=== PATIENT | male | born 1950 | race Caucasian/White ===

== ENCOUNTER 2021-08-08 16:25 | Inpatient (IN) | payer MEDICARE, BC ==
[2021-08-08] MEDS ORDERED: Sodium Chloride 0.9% 1,000 ML IV ONE ×2 (17:00→18:07)
[2021-08-08 17:44] LABS: ANION GAP 12.8 mmol/L (5-15)
--- NOTE | 2021-08-08 17:44 | CR ---
[id number] RAD/RAD Chest PA or AP 1V EXAM: RAD Chest PA or AP 1V INDICATION: SHORT OF BREATH. COMPARISON: None. DISCUSSION/IMPRESSION: Cardiomediastinal silhouette is normal in size and contour. Subtle patchy areas of linear opacification in both lung bases right greater than left. Findings are nonspecific and possibly dependent atelectasis versus summation artifact from overlapping structures of the bronchovascular bundles and chest wall. No pleural effusion or pneumothorax. Correlate for signs of infection to exclude developing pneumonia. Erick Medrano MD 08/08/21 3327 Thank you for allowing us to participate in the care of your patient.
[2021-08-08] MEDS ORDERED: Sodium Chloride 0.9% 1,000 ML IV SCH (18:07)
[2021-08-08] MEDS: Sodium Chloride 0.9% 1,000 ML IV SCH (18:07)
[2021-08-08] MEDS ORDERED: Levofloxacin/Dextrose 5%-Water 250 MG in Premix Bag 1 BAG IV SCH (21:00)
[2021-08-08 21:06] LABS: PTT,PARTIAL THROMBOPLSTIN TIME 39.7 SEC (22.8-31.4)
--- NOTE | 2021-08-08 21:07 | PCM.HP.2 ---
H&P History of Present Illness - General Date of Service: 08/08/21 Admit Problem/Dx: Admission Diagnosis/Problem Admission Diagnosis/Problem Sepsis - Related Data Allergies/Adverse Reactions: Allergies Allergy/AdvReac Type Severity Reaction Status Date / Time No Known Allergies Allergy Verified 03/16/15 15:41 Home Medications: Home Meds Aspirin [Children's Aspirin] 81 mg PO DAILY 03/16/15 [History] Levothyroxine Sodium [Synthroid] 137 mcg PO DAILY 03/16/15 [History] Lisinopril 20 mg PO DAILY 03/16/15 [History] Multivitamin [Multivitamins] 1 cap PO DAILY 03/16/15 [History] atorvaSTATin [Lipitor] 20 mg PO DAILY 03/16/15 [History] Metoprolol Succinate [Toprol XL 50mg] 50 mg PO DAILY #30 tab.er 03/17/15 [Rx] Omeprazole [Prilosec] 20 mg PO DAILY #30 capsule.dr 03/17/15 [Rx] Allopurinol [Zyloprim] 300 mg PO DAILY 08/08/21 [History] hydroCHLOROthiazide [Hydrochlorothiazide] 25 mg PO DAILY 08/08/21 [History] Past Medical History HEENT History: Reports: Cataract, Impaired Vision Cardiovascular History: Reports: High Cholesterol, Hypertension Gastrointestinal History: Reports: GERD Musculoskeletal History: Reports: Arthritis, Gout Endocrine/Metabolic History: Reports: Obesity/BMI 30+ - Infectious Disease History Infectious Disease History: Reports: Chicken Pox, Measles, Mumps - Past Surgical History HEENT Surgical History: Reports: Cataract Surgery Cardiovascular Surgical History: Reports: None GI Surgical History: Reports: None Musculoskeletal Surgical History: Reports: Arthroscopic Knee, Shoulder Surgery Other Musculoskeletal Surgeries/Procedures:: right knee ACL repair. bilateral shoulder surgery Social & Family History - Tobacco Use Tobacco Use Status *Q: Former Tobacco User Years of Tobacco use: 30 Packs/Tins Daily: 2 Used Tobacco, but Quit: Yes Month/Year Tobacco Last Used: 10 - Caffeine Use Caffeine Use: Reports: Coffee, Soda, Tea - Recreational Drug Use Recreational Drug Use: No H&P Review of Systems - Review of Systems: Review Of Systems: See Below General: Reports: Fever, Chills, Weakness, Fatigue, Decreased Appetite. Denies: Diaphoresis HEENT: Reports: Sinus Congestion. Denies: Sore Throat Pulmonary: Reports: Shortness of Breath, Cough. Denies: Wheezing, Sputum Cardiovascular: Reports: Lightheadedness. Denies: Chest Pain, Palpitations, Edema Gastrointestinal: Reports: Decreased Appetite. Denies: Abdominal Pain, Diarrhea, Nausea Genitourinary: Reports: No Symptoms Musculoskeletal: Reports: No Symptoms Skin: Reports: No Symptoms Psychiatric: Reports: No Symptoms Neurological: Reports: No Symptoms Hematologic/Lymphatic: Reports: No Symptoms Immunologic: Reports: No Symptoms Exam - Exam Exam: See Below - Vital Signs Vital Signs: Last Vital Signs Temp 99.0 F 08/08/21 19:41 Pulse 99 08/08/21 19:41 Resp 24 H 08/08/21 19:41 BP 113/63 08/08/21 19:41 Pulse Ox 97 08/08/21 19:41 Weight: 250 lb - Exam Quality Assessment: Supplemental Oxygen, DVT Prophylaxis. No: Urinary Catheter General: Alert, Oriented, Cooperative. No: Mild Distress HEENT: Conjunctiva Clear, Mucosa Moist & [place] Neck: Supple, Trachea Midline Lungs: Decreased Breath Sounds, Crackles, Rhonchi Cardiovascular: Regular Rhythm, Tachycardia. No: Systolic Murmur GI/Abdominal Exam: Normal Bowel Sounds, Soft, Non-Tender, No Distention (Male) Exam: Deferred Rectal (Males) Exam: Deferred Back Exam: Normal Inspection, Full Range of Motion Extremities: Normal Inspection, Normal Range of Motion, Non-Tender, No Pedal Edema, Normal Capillary Refill Peripheral Pulses: 2+: Dorsalis Pedis (L), Dorsalis Pedis (R) Skin: Warm, Dry, Intact Neuro Extensive - Mental Status: Alert, Oriented x3, Normal Mood/Affect Psychiatric: Alert, Normal Affect, Normal Mood - Patient Data Lab Results Last 24 hrs: Laboratory Results - last 24 hr 08/08/21 08/08/21 08/08/21 Range/Units 16:38 16:38 16:38 WBC 17.59 H (5.00-10.00) 10^3/uL RBC 4.14 L (4.50-6.00) 10^6/uL Hgb 12.7 L (13.0-17.0) g/dL Hct 38.1 L (40.0-52.0) % MCV 92.0 (82.0-92.0) fL MCH 30.7 (27.0-31.0) pg MCHC 33.3 (32.0-36.0) g/dL RDW 16.1 H (11.5-14.5) % Plt Count 243 (150-400) 10^3/uL MPV 10.7 H (7.4-10.4) fL Add Manual Diff Yes Neutrophils % (Manual) 91 H (50-70) % Band Neutrophils % 3 L (4-12) % Lymphocytes % (Manual) 5 L (20-40) % Atypical Lymphs % 0 Monocytes % (Manual) 1 L (2-8) % Eosinophils % (Manual) 0 L (1-3) % Basophils % (Manual) 0 (0-1) % Anisocytosis Few Ovalocytes Few D-Dimer, Quantitative 3220 H (<400) ng/mL Sodium 129 L (136-145) mmol/L Potassium 3.3 L (3.5-5.1) mmol/L Chloride 103 (98-107) mmol/L Carbon Dioxide 16.5 L (21.0-32.0) mmol/L Anion Gap 12.8 (5-15) mmol/L BUN 69 H* (7-18) mg/dL Creatinine 2.25 H (0.51-1.17) mg/dL Est Cr Clr Drug Dosing 31.54 mL/min Estimated GFR (MDRD) 29 mL/min Glucose 238 H (70-140) mg/dL Lactic Acid (0.4-2.0) mmol/L Calcium 8.6 L (8.7-10.3) mg/dL Total Bilirubin 0.8 (0.2-1.0) mg/dL AST 60 H (15-37) U/L ALT 52 (14-63) U/L Alkaline Phosphatase 99 (46-116) U/L Total Protein 7.9 (6.4-8.2) g/dL Albumin 2.52 L (3.40-5.00) g/dL 08/08/21 Range/Units 16:38 WBC (5.00-10.00) 10^3/uL RBC (4.50-6.00) 10^6/uL Hgb (13.0-17.0) g/dL Hct (40.0-52.0) % MCV (82.0-92.0) fL MCH (27.0-31.0) pg MCHC (32.0-36.0) g/dL RDW (11.5-14.5) % Plt Count (150-400) 10^3/uL MPV (7.4-10.4) fL Add Manual Diff Neutrophils % (Manual) (50-70) % Band Neutrophils % (4-12) % Lymphocytes % (Manual) (20-40) % Atypical Lymphs % Monocytes % (Manual) (2-8) % Eosinophils % (Manual) (1-3) % Basophils % (Manual) (0-1) % Anisocytosis Ovalocytes D-Dimer, Quantitative (<400) ng/mL Sodium (136-145) mmol/L Potassium (3.5-5.1) mmol/L Chloride (98-107) mmol/L Carbon Dioxide (21.0-32.0) mmol/L Anion Gap (5-15) mmol/L BUN (7-18) mg/dL Creatinine (0.51-1.17) mg/dL Est Cr Clr Drug Dosing mL/min Estimated GFR (MDRD) mL/min Glucose (70-140) mg/dL Lactic Acid 2.6 H (0.4-2.0) mmol/L Calcium (8.7-10.3) mg/dL Total Bilirubin (0.2-1.0) mg/dL AST (15-37) U/L ALT (14-63) U/L Alkaline Phosphatase (46-116) U/L Total Protein (6.4-8.2) g/dL Albumin (3.40-5.00) g/dL Result Diagrams: 08/08/21 16:38 08/08/21 20:30 Sepsis Event Note - Evaluation Sepsis Screening Result: Possible Sepsis Risk - Focused Exam Vital Signs: Vital Signs Temp Pulse Resp BP Pulse Ox 08/08/21 19:41 99.0 F 99 24 H 113/63 97 08/08/21 19:00 99.1 F 104 H 27 H 123/62 97 08/08/21 18:35 104 H 25 H 104/57 L 97 08/08/21 18:30 102 H 23 H 104/57 L 97 08/08/21 18:15 99.7 F 112 H 25 H 125/58 L 95 08/08/21 17:45 106 H 27 H 101/61 97 08/08/21 17:30 111 H 20 112/47 L 97 08/08/21 17:14 116 H 25 H 95 08/08/21 16:55 117 H 25 H 93/47 L 92 L 08/08/21 16:51 96.8 F L 124 H 24 H 125/65 88 L 08/08/21 16:50 115 H 24 H 99/55 L 91 L 08/08/21 16:43 118 H 25 H 98/52 L 91 L Problem List Initiated/Reviewed/Updated: Yes Orders Last 24hrs: Active Orders 24 hr Category Date Time Status Patient Status [ADT] Routine ADT 08/08/21 20:36 Active Schmitz Catheter Insertion [Insert Urinary Catheter] [OM. Care 08/08/21 18:00 Ordered PC] Q24H Urinary Catheter Assessment [RC] ASDIRECTED Care 08/08/21 17:55 Active Vital Signs [RC] Q4H Care 08/08/21 20:36 Active C-REACTIVE PROTEIN [CHEM] Stat Lab 08/08/21 20:30 Received CREATINE KINASE,CK [CHEM] Stat Lab 08/08/21 20:30 Received CULTURE BLOOD [BC] Stat Lab 08/08/21 17:08 Ordered CULTURE BLOOD [BC] Stat Lab 08/08/21 19:33 Ordered CULTURE BLOOD [BC] Stat Lab 08/08/21 20:30 Received INR,PT,PROTHROMBIN TIME [COAG] Stat Lab 08/08/21 20:30 Received LACTIC ACID [CHEM] Routine Lab 08/08/21 20:30 Received LACTIC ACID [CHEM] Stat Lab 08/08/21 19:31 Ordered LD [REF] Stat Lab 08/08/21 19:37 Ordered MAGNESIUM [CHEM] Stat Lab 08/08/21 20:30 Received PROCALCITONIN [REF] Stat Lab 08/08/21 19:31 Ordered PTT,PARTIAL THROMBOPLSTIN TIME [COAG] Stat Lab 08/08/21 20:30 Received TROPONIN I HIGH SENSITIVITY [CHEM] Stat Lab 08/08/21 20:30 Received UA W/MICROSCOPIC [URIN] Stat Lab 08/08/21 17:55 Ordered Sodium Chloride 0.9% [Normal Saline] 1,000 ml Med 08/08/21 18:07 Active IV ASDIRECTED Blood Culture x2 Reflex Set [OM.PC] Stat Oth 08/08/21 19:31 Ordered Medication Orders Sodium Chloride (Normal Saline) 1,000 mls @ 150 mls/hr IV ASDIRECTED FOR[facility]LY [facility], 1928–1983 Last Admin: 08/08/21 18:07 Dose: 150 mls/hr Documented by: FELICITY Assessment/Plan Comment:: HPI summary: Marquis is a 71 yM patient who notified the [facility] clinic of possible COVID symtoms on 08/05/21. COVID test was . Patient had reported onset of symptoms initially on 07/26/21 with worsening of symptoms on 07/29 with onset of cough. Patient met the criteria for monoclonal antibodies given chronic conditions and age and was agreeable to receive this treatment. Patient received the BAM infusion the evening of 08/05/21 at [facility]. Fred home monitoring was also started via [employer] for symptom monitoring. O2 sat at home 87-88% per patient. Reports fever and chills. Patient states he started to feel worse yesterday and today with decreased appetite and fluid intake, fatigue, intermittent mild lightheadedness, cough and shortness of breath which increased this afternoon and this scared him prompting him to call his son to take him to the ER for evaluation. ED course: Patient tachycardic and hypotensive in ER. NS bolus in ER, followed by 150ml/hr. CXR suggestive of pneumonia with linear opacities. Troponin negative 42.800. WBC 17.59, neutrophils 91%, Hgb 12.7, Plt 243. Na 129, K 3.3, CO2 16.5, BUN 69, [address] [place] 2.25, GFR 29, AST 60. INR 1.0, PTT 39.1. CK 504. Mg 2.3. Troponin negative. EKG indicated sinus tach, otherwise normal. Hospital course: 08/08/21: Patient admitted to inpatient status tonight. Patient reports cough, shortness of breath. Denies CP, nausea, sweating. Reports decreased fluid intake and fatigue for the past few days. HR slightly tachycardic, improved from prior. Normotensive upon admission. Low grade temp 99. No indication of respiratory distress, patient conversational. Patient alert, oriented. Lung sounds dim with crackles, rhonchi to bases. Repeat labs ordered for am as below; additional labs of BNP, Mg, Phos. No known CHF - patient had an echo in 2014 with normal EF, no diastolic dysfunction at that time. Hospitalization problems and plan: # COVID-19 infection # Elevated D-dimer 3220 - unable to obtain CTA Chest to R/O PE due to ROBB, will start lovenox at therapeutic dosing # Elevated CK 504 -HOLD statin # Elevated CRP > 11.0 # Elevated PTT (mild) 39.7 - Dexamethasone 6mg IV (total of 10 day course IV/PO) - Lovenox 1mg/kg BID ~ 110mg subq BID - Unable to start remedesevir due to ROBB at this time, will start if indicated once ROBB improves with IVF - Repeat CRP, CK in am # Pneumonia - Patchy areas of linear opacification to bilateral bases R>L on CXR suggestive of developing pneumonia per radiology # Sepsis # Leukocytosis with neutrophilia - WBC 17.59 (N 91%) - suggestive of bacterial etiology # Acute hypoxia - O2 sat 94% on 6L simple mask; maintain O2 sat > 90%. # lactic acidosis - initial result 2.6 this afternoon - Repeat lactic acid, normalized to 1.7 with IVF this evening - Start levaquin 750mg IV Q48H given ROBB (10 day course) - Repeat CBC in am - BC x 2 pending # ROBB - BUN 69, Creatinine 2.25, GFR 29. # Dehydration - NS bolusing in ER # Tachycardia; improving with IV hydration (90s to low 100s tonight) - Cardiac monitoring - Continue NS @ 150ml/hr - Monitor I&O - Repeat CMP in am Chronic, stable conditions: # HTN - takes metoprolol 100mg in am, 50mg at HS, lisinopril 20mg PO daily, HCTZ 12.5mg PO daily (HOLDING ANTI-HYPERTENSIVES DUE TO ROBB) # HLD - takes lipitor 40mg PO daily - HOLD STATIN CK 504 # Hypothyroidism - continue levothyroxine 137mcg PO daily; TSH 2.28 (04/21/21) # Diabetes mellitus, TII - hold metformin due to ROBB. Last A1C 7.1%. # GERD - continue prilosec 20mg PO daily # Gout - allopurinol 400mg PO daily (HOLD) # Obesity Hospitalization details: # FEN: NS 150ml/hr, K 3.3, ADA diet # PPX: lovenox 1mg/kg subq BID ~ 110mg, prilosec 20mg PO daily # Code status: FULL CODE - Discussed code status, patient wishes to be intubated if respiratory status deteriorates # Emergency contact: DaughterRosa [phone] # Disposition: I anticipate > 2 midnights for treatment of hospital problems. Patient admitted to inpatient status for IV hydration, anti-virals, antibiotics and oxygen therapy.
[2021-08-08] MEDS ORDERED: Levofloxacin/Dextrose 5%-Water 500 MG in Premix Bag 1 BAG IV SCH ×2 (21:15→22:00)
[2021-08-08] MEDS ORDERED: Acetaminophen 325 MG Tab PO PRN (21:34)
[2021-08-08 21:39] LABS: ANION GAP 15.1 mmol/L (5-15)
--- NOTE | 2021-08-08 21:55 | EDM.PDOC ---
ED HPI GENERAL MEDICAL PROBLEM - General Chief Complaint: Respiratory Problem Stated Complaint: RESPIRATORY--COVID + Time Seen by Provider: 08/08/21 17:00 Source of Information: Reports: Patient, RN History Limitations: Reports: No Limitations, Respiratory Distress - History of Present Illness INITIAL COMMENTS - FREE TEXT/NARRATIVE: 71-year-old male presents to the emergency room with complaints of increasing dyspnea and tachypnea. He was diagnosed with Covid positive on Tuesday. He has been at home managing his illness. He is having increasing difficulty with his breathing and becoming increasingly shortness of breath. He presents to the emergency room. He has an mild respiratory distress. He is nontoxic appearing. He denies significant cough, headache, chest pain, abdominal pain. Is no associated nausea or vomiting. Onset: Gradual Onset Date: 08/05/21 Duration: Day(s):, Getting Worse Location: Reports: Chest Quality: Reports: Ache Severity: Severe Improves with: Reports: None Worsens with: Reports: Movement Context: Reports: Sick Contact Associated Symptoms: Reports: Shortness of Breath, Weakness. Denies: Confusion, Chest Pain, Cough, Diaphoresis, Fever/Chills, Headaches, Syncope - Related Data Allergies Allergy/AdvReac Type Severity Reaction Status Date / Time No Known Allergies Allergy Verified 03/16/15 15:41 Home Meds: Home Meds Aspirin [Children's Aspirin] 81 mg PO DAILY 03/16/15 [History] Levothyroxine Sodium [Synthroid] 137 mcg PO DAILY 03/16/15 [History] Lisinopril 20 mg PO DAILY 03/16/15 [History] Multivitamin [Multivitamins] 1 cap PO DAILY 03/16/15 [History] atorvaSTATin [Lipitor] 20 mg PO DAILY 03/16/15 [History] Metoprolol Succinate [Toprol XL 50mg] 50 mg PO DAILY #30 tab.er 03/17/15 [Rx] Omeprazole [Prilosec] 20 mg PO DAILY #30 capsule.dr 03/17/15 [Rx] Allopurinol [Zyloprim] 300 mg PO DAILY 08/08/21 [History] hydroCHLOROthiazide [Hydrochlorothiazide] 25 mg PO DAILY 08/08/21 [History] Past Medical History HEENT History: Reports: Cataract, Impaired Vision Cardiovascular History: Reports: High Cholesterol, Hypertension Gastrointestinal History: Reports: GERD Musculoskeletal History: Reports: Arthritis, Gout Endocrine/Metabolic History: Reports: Obesity/BMI 30+ - Infectious Disease History Infectious Disease History: Reports: Chicken Pox, Measles, Mumps - Past Surgical History HEENT Surgical History: Reports: Cataract Surgery Cardiovascular Surgical History: Reports: None GI Surgical History: Reports: None Musculoskeletal Surgical History: Reports: Arthroscopic Knee, Shoulder Surgery Other Musculoskeletal Surgeries/Procedures:: right knee ACL repair. bilateral shoulder surgery Social & Family History - Tobacco Use Tobacco Use Status *Q: Former Tobacco User Years of Tobacco use: 30 Packs/Tins Daily: 2 Used Tobacco, but Quit: Yes Month/Year Tobacco Last Used: 10 - Caffeine Use Caffeine Use: Reports: Coffee, Soda, Tea - Recreational Drug Use Recreational Drug Use: No ED ROS GENERAL - Review of Systems Review Of Systems: See Below Constitutional: Reports: Weakness. Denies: Diaphoresis HEENT: Reports: No Symptoms Respiratory: Reports: Shortness of Breath. Denies: Pleuritic Chest Pain, Cough, Sputum Cardiovascular: Reports: Blood Pressure Problem, Dyspnea on Exertion, Lightheadedness. Denies: Chest Pain, Syncope Endocrine: Reports: No Symptoms GI/Abdominal: Reports: No Symptoms : Reports: No Symptoms Musculoskeletal: Reports: No Symptoms Skin: Denies: Cyanosis, Pruritis, Rash Neurological: Denies: Confusion, Headache, Numbness, Paresthesia Psychiatric: Reports: No Symptoms Hematologic/Lymphatic: Reports: No Symptoms Immunologic: Reports: No Symptoms ED EXAM, GENERAL - Physical Exam Exam: See Below Free Text/Narrative:: This is a middle-aged gentleman who is alert, mild clinical respiratory distress upon presentation. He is obese. He is nontoxic-appearing. General Appearance: Alert, Mild Distress (Respiratory), Obese Eye Exam: Bilateral Eye: EOMI, PERRL Ears: Hearing Grossly Normal Nose: Normal Inspection Throat/Mouth: Normal Voice. No: Perioral Cyanosis Head: Atraumatic, Normocephalic Neck: Normal Inspection, Supple Respiratory/Chest: Respiratory Distress, Decreased Breath Sounds, Other (Lung sounds are coarse throughout bilateral lungs with diminished breath sounds at the bases bilaterally). No: Accessory Muscle Use Cardiovascular: Tachycardia GI/Abdominal: Soft, Non-Tender Back Exam: Normal Inspection Extremities: Normal Inspection Neurological: Alert, Oriented, No Motor/Sensory Deficits Psychiatric: Normal Affect, Normal Mood Skin Exam: Warm, Dry, Intact, Normal Color, No Rash, Tattoo(s) #1 Interpretation EKG Date: 08/08/21 Rhythm: Other (Sinus tachycardia) Rate (Beats/Min): 105 [place]: Normal P-Wave: Present QRS: Normal ST-T: Normal QT: Normal Comparison: NA - No Prior EKG EKG Interpretation Comments: Sinus tachycardia otherwise normal ECG Course - Vital Signs Last Recorded V/S: Last Vital Signs Temp 99.0 F 08/08/21 19:41 Pulse 99 08/08/21 19:41 Resp 24 H 08/08/21 19:41 BP 113/63 08/08/21 19:41 Pulse Ox 97 08/08/21 19:41 - Orders/Labs/Meds Orders: Active Orders 24 hr Category Date Time Status Schmitz Catheter Insertion [Insert Urinary Catheter] [OM. Care 08/08/21 18:00 Ordered PC] Q24H Urinary Catheter Assessment [RC] ASDIRECTED Care 08/08/21 17:55 Active CULTURE BLOOD [BC] Stat Lab 08/08/21 17:08 Ordered CULTURE BLOOD [BC] Stat Lab 08/08/21 19:33 Ordered CULTURE BLOOD [BC] Stat Lab 08/08/21 20:30 Received LACTIC ACID [CHEM] Stat Lab 08/08/21 19:31 Ordered LD [REF] Stat Lab 08/08/21 19:37 Ordered PROCALCITONIN [REF] Stat Lab 08/08/21 19:31 Ordered UA W/MICROSCOPIC [URIN] Stat Lab 08/08/21 17:55 Ordered Sodium Chloride 0.9% [Normal Saline] 1,000 ml Med 08/08/21 18:07 Active IV ASDIRECTED Blood Culture x2 Reflex Set [OM.PC] Stat Oth 08/08/21 19:31 Ordered Medication Orders Acetaminophen (Acetaminophen 325 Mg Tab) 650 mg PO Q4H PRN PRN Reason: Pain (Mild 1-3)/fever Aspirin (Aspirin 81 Mg Tab.Chew) 81 mg PO DAILY CARLOS Dexamethasone (Dexamethasone 10 Mg/Ml Sdv) 6 mg IVPUSH DAILY CARLOS Enoxaparin Sodium (Enoxaparin 150 Mg/1 Ml Syringe) 110 mg SUBCUT Q12H CARLOS Sodium Chloride (Normal Saline) 1,000 mls @ 150 mls/hr IV ASDIRECTED CARLOS Last Admin: 08/08/21 18:07 Dose: 150 mls/hr Documented by: FELICITY Levofloxacin/Dextrose 250 mg/ (Premix) 50 mls @ 50 mls/hr IV Q48H CARLOS Levofloxacin/Dextrose 500 mg/ (Premix) 100 mls @ 100 mls/hr IV Q48H CARLOS Levothyroxine Sodium (Levothyroxine 112 Mcg Tab) 112 mcg PO DAILY CARLOS Levothyroxine Sodium (Levothyroxine 25 Mcg Tab) 25 mcg PO DAILY CARLOS Pantoprazole Sodium (Pantoprazole 40 Mg Tab.Cr) 40 mg PO DAILY CARLOS Labs: Laboratory Tests 08/08/21 08/08/21 08/08/21 Range/Units 16:38 16:38 16:38 WBC 17.59 H (5.00-10.00) 10^3/uL RBC 4.14 L (4.50-6.00) 10^6/uL Hgb 12.7 L (13.0-17.0) g/dL Hct 38.1 L (40.0-52.0) % MCV 92.0 (82.0-92.0) fL MCH 30.7 (27.0-31.0) pg MCHC 33.3 (32.0-36.0) g/dL RDW 16.1 H (11.5-14.5) % Plt Count 243 (150-400) 10^3/uL MPV 10.7 H (7.4-10.4) fL Add Manual Diff Yes Neutrophils % (Manual) 91 H (50-70) % Band Neutrophils % 3 L (4-12) % Lymphocytes % (Manual) 5 L (20-40) % Atypical Lymphs % 0 Monocytes % (Manual) 1 L (2-8) % Eosinophils % (Manual) 0 L (1-3) % Basophils % (Manual) 0 (0-1) % Anisocytosis Few Ovalocytes Few D-Dimer, Quantitative 3220 H (<400) ng/mL Sodium 129 L (136-145) mmol/L Potassium 3.3 L (3.5-5.1) mmol/L Chloride 103 (98-107) mmol/L Carbon Dioxide 16.5 L (21.0-32.0) mmol/L Anion Gap 12.8 (5-15) mmol/L BUN 69 H* (7-18) mg/dL Creatinine 2.25 H (0.51-1.17) mg/dL Est Cr Clr Drug Dosing 31.54 mL/min Estimated GFR (MDRD) 29 mL/min Glucose 238 H (70-140) mg/dL Lactic Acid (0.4-2.0) mmol/L Calcium 8.6 L (8.7-10.3) mg/dL Total Bilirubin 0.8 (0.2-1.0) mg/dL AST 60 H (15-37) U/L ALT 52 (14-63) U/L Alkaline Phosphatase 99 (46-116) U/L Total Protein 7.9 (6.4-8.2) g/dL Albumin 2.52 L (3.40-5.00) g/dL 08/08/21 Range/Units 16:38 WBC (5.00-10.00) 10^3/uL RBC (4.50-6.00) 10^6/uL Hgb (13.0-17.0) g/dL Hct (40.0-52.0) % MCV (82.0-92.0) fL MCH (27.0-31.0) pg MCHC (32.0-36.0) g/dL RDW (11.5-14.5) % Plt Count (150-400) 10^3/uL MPV (7.4-10.4) fL Add Manual Diff Neutrophils % (Manual) (50-70) % Band Neutrophils % (4-12) % Lymphocytes % (Manual) (20-40) % Atypical Lymphs % Monocytes % (Manual) (2-8) % Eosinophils % (Manual) (1-3) % Basophils % (Manual) (0-1) % Anisocytosis Ovalocytes D-Dimer, Quantitative (<400) ng/mL Sodium (136-145) mmol/L Potassium (3.5-5.1) mmol/L Chloride (98-107) mmol/L Carbon Dioxide (21.0-32.0) mmol/L Anion Gap (5-15) mmol/L BUN (7-18) mg/dL Creatinine (0.51-1.17) mg/dL Est Cr Clr Drug Dosing mL/min Estimated GFR (MDRD) mL/min Glucose (70-140) mg/dL Lactic Acid 2.6 H (0.4-2.0) mmol/L Calcium (8.7-10.3) mg/dL Total Bilirubin (0.2-1.0) mg/dL AST (15-37) U/L ALT (14-63) U/L Alkaline Phosphatase (46-116) U/L Total Protein (6.4-8.2) g/dL Albumin (3.40-5.00) g/dL Meds: Medications Generic Name Dose Route Start Last Admin Trade Name Freq PRN Reason Stop Dose Admin Acetaminophen 650 mg 08/08/21 21:34 Acetaminophen 325 Mg Tab PO Q4H PRN Pain (Mild 1-3)/fever Aspirin 81 mg 08/09/21 09:00 Aspirin 81 Mg Tab.Chew PO DAILY CARLOS Dexamethasone 6 mg 08/08/21 21:30 Dexamethasone 10 Mg/Ml Sdv IVPUSH DAILY CARLOS Enoxaparin Sodium 110 mg 08/08/21 21:00 Enoxaparin 150 Mg/1 Ml Syringe SUBCUT Q12H CARLOS Sodium Chloride 1,000 mls @ 150 mls/hr 08/08/21 18:07 08/08/21 18:07 Normal Saline IV 150 mls/hr ASDIRECTED CARLOS Administration Levofloxacin/Dextrose 250 mg/ 50 mls @ 50 mls/hr 08/08/21 21:00 Premix IV Q48H CARLOS Levofloxacin/Dextrose 500 mg/ 100 mls @ 100 mls/hr 08/08/21 22:00 Premix IV Q48H CARLOS Levothyroxine Sodium 112 mcg 08/09/21 09:00 Levothyroxine 112 Mcg Tab PO DAILY CARLOS Levothyroxine Sodium 25 mcg 08/09/21 09:00 Levothyroxine 25 Mcg Tab PO DAILY CARLOS Pantoprazole Sodium 40 mg 08/09/21 09:00 Pantoprazole 40 Mg Tab.Cr PO DAILY CARLOS Discontinued Medications Generic Name Dose Route Start Last Admin Trade Name Freq PRN Reason Stop Dose Admin Sodium Chloride 1,000 mls @ 999 mls/hr 08/08/21 17:00 08/08/21 17:00 Normal Saline IV 08/08/21 18:00 999 mls/hr .BOLUS ONE Administration Sodium Chloride 1,000 mls @ 150 mls/hr 08/08/21 18:07 08/08/21 18:07 Normal Saline IV 08/09/21 00:46 150 mls/hr .BOLUS ONE Administration Levofloxacin/Dextrose 500 mg/ 100 mls @ 100 mls/hr 08/08/21 21:15 Premix IV Q24H CARLOS - Radiology Interpretation Free Text/Narrative:: Chest rad PA 1 view Indication: Shortness of breath Discussion/impression: Cardiomediastinal silhouette is normal in size and contour. Subtle patchy areas of linear opacification in both lung bases right greater than left. Findings are nonspecific and possible dependent atelectasis versus summation artifact from overlapping structures of the bronchovascular bundles and chest wall. No pleural effusion or pneumothorax. Correlate for signs of infection to exclude developing pneumonia. - Re-Assessments/Exams Free Text/Narrative Re-Assessment/Exam: 08/08/21 21:58 Was placed initially on nasal cannula operative 4 L of oxygen and was maintaining at 94% O2 saturation. Patient was changed to a nonrebreather mask and was oxygenation percent was 96%. His respirations improved in the ER room. He was reporting less shortness of breath and improvement of tachypnea. Departure - Departure Time of Disposition: 19:00 Disposition: Admitted As Inpatient 67 Condition: Fair Clinical Impression: Respiratory distress, acute, COVID-19 Sepsis Qualifiers: Sepsis type: sepsis due to unspecified organism Sepsis acute organ dysfunction status: with acute organ dysfunction Severe sepsis acute organ dysfunction type: acute renal failure Acute renal failure type: unspecified Severe sepsis shock status: without septic shock Qualified Code(s): A41.9 - Sepsis, unspecified organism; R65.20 - Severe sepsis without septic shock; N17.9 - Acute kidney failure, unspecified - Discharge Information Sepsis Event Note (ED) - Evaluation Sepsis Screening Result: Possible Sepsis Risk - Focused Exam Vital Signs: Vital Signs Temp Pulse Resp BP Pulse Ox 08/08/21 19:41 99.0 F 99 24 H 113/63 97 08/08/21 19:00 99.1 F 104 H 27 H 123/62 97 08/08/21 18:35 104 H 25 H 104/57 L 97 08/08/21 18:30 102 H 23 H 104/57 L 97 08/08/21 18:15 99.7 F 112 H 25 H 125/58 L 95 08/08/21 17:45 106 H 27 H 101/61 97 08/08/21 17:30 111 H 20 112/47 L 97 08/08/21 17:14 116 H 25 H 95 08/08/21 16:55 117 H 25 H 93/47 L 92 L 08/08/21 16:51 96.8 F L 124 H 24 H 125/65 88 L 08/08/21 16:50 115 H 24 H 99/55 L 91 L 08/08/21 16:43 118 H 25 H 98/52 L 91 L - My Orders Last 24 Hours: My Active Orders 08/08/21 17:08 CULTURE BLOOD [BC] Stat 08/08/21 17:55 Urinary Catheter Assessment [RC] ASDIRECTED UA W/MICROSCOPIC [URIN] Stat 08/08/21 18:00 Schmitz Catheter Insertion [Insert Urinary Catheter] [OM.PC] Q24H 08/08/21 18:07 Sodium Chloride 0.9% [Normal Saline] 1,000 ml IV ASDIRECTED 08/08/21 19:31 LACTIC ACID [CHEM] Stat PROCALCITONIN [REF] Stat Blood Culture x2 Reflex Set [OM.PC] Stat 08/08/21 19:33 CULTURE BLOOD [BC] Stat 08/08/21 19:37 LD [REF] Stat 08/08/21 20:30 CULTURE BLOOD [BC] Stat - Assessment/Plan Last 24 Hours: My Active Orders 08/08/21 17:08 CULTURE BLOOD [BC] Stat 08/08/21 17:55 Urinary Catheter Assessment [RC] ASDIRECTED UA W/MICROSCOPIC [URIN] Stat 08/08/21 18:00 Schmitz Catheter Insertion [Insert Urinary Catheter] [OM.PC] Q24H 08/08/21 18:07 Sodium Chloride 0.9% [Normal Saline] 1,000 ml IV ASDIRECTED 08/08/21 19:31 LACTIC ACID [CHEM] Stat PROCALCITONIN [REF] Stat Blood Culture x2 Reflex Set [OM.PC] Stat 08/08/21 19:33 CULTURE BLOOD [BC] Stat 08/08/21 19:37 LD [REF] Stat 08/08/21 20:30 CULTURE BLOOD [BC] Stat Assessment:: 1. Acute respiratory distress secondary to Covid positive. 2. Acute renal injury due to dehydration, Covid 3. Sepsis secondary to Covid Plan: Patient will be admitted to [facility] medical staff at [facility] in [place]. Patient was in acute respiratory distress, acute renal injury, sepsis secondary to Covid positive. He was given IV fluids and started on a nonrebreather mask at 10 L. Patient tolerated the nonrebreather mask with improvement of his tachypnea and dyspnea. O2 saturations responded nicely in the high 90%. Upon his arrival his O2 saturation was 88% with acute respiratory distress. Additional lab work was ordered for protocol for his Covid positive and sepsis. In addition blood cultures x2. Findings were discussed with [facility] provider who accepted definitive care of the patient inpatient.
[2021-08-08] MEDS: Dexamethasone 10 MG/ML SDV IVPUSH SCH (22:18)
[2021-08-08] MEDS: Enoxaparin 150 MG/1 ML Syringe SUBCUT SCH (22:26)
[2021-08-09] MEDS: Pantoprazole 40 MG Tab.CR PO SCH (08:01)
[2021-08-09] MEDS: Enoxaparin 150 MG/1 ML Syringe SUBCUT SCH ×2 (08:01→20:44)
[2021-08-09] MEDS: Levothyroxine 25 MCG Tab PO SCH (08:01)
[2021-08-09] MEDS: Aspirin 81 MG Tab.Chew PO SCH (08:01)
[2021-08-09] MEDS: Levothyroxine 112 MCG Tab PO SCH (08:01)
[2021-08-09] MEDS: Dexamethasone 10 MG/ML SDV IVPUSH SCH (08:03)
[2021-08-09 08:45] LABS: SODIUM,NA 134 mmol/L (136-145)
[2021-08-09 08:46] LABS: ANION GAP 13.7 mmol/L (5-15); CHLORIDE,CL 105 mmol/L (98-107)
[2021-08-09] MEDS ORDERED: Potassium Chloride 20 MEQ Tab.ER PO ONE (09:53)
[2021-08-09] MEDS ORDERED: REMDESIVIR 200 MG in Sodium Chloride 0.9% 250 ML IV ONE (09:54)
[2021-08-09 10:47] LABS: BASE EXCESS ARTERIAL -6 mmol/L (-2-3); BICARBONATE,ARTERIAL 17.1 mmol/L (22-26); O2 DELIVERY DEVICE SIMPLE MASK; O2 SATURATION ARTERIAL 98 % (95-98); PCO2 ARTERIAL 27 mmHG (35-45); PO2 ARTERIAL 97 mmHG (80-105)
--- NOTE | 2021-08-09 10:51 | PCM.PN ---
- General Info Date of Service: 08/09/21 Functional Status: Reports: Pain Controlled, Tolerating Diet, Urinating. Denies: New Symptoms - Review of Systems General: Reports: Weakness, Appetite (improved this morning, sat up to eat breakfast). Denies: Fever, Chills HEENT: Reports: Sinus Congestion Pulmonary: Reports: Shortness of Breath (improved from last night), Cough. Denies: Sputum, Wheezing Gastrointestinal: Reports: No Symptoms. Denies: Abdominal Pain, Nausea Genitourinary: Reports: No Symptoms Musculoskeletal: Reports: No Symptoms Skin: Reports: No Symptoms Neurological: Reports: No Symptoms Psychiatric: Reports: No Symptoms - Patient Data Vitals - Most Recent: Last Vital Signs Temp 96.7 F L 08/09/21 08:14 Pulse 82 08/09/21 08:14 Resp 22 H 08/09/21 08:14 BP 107/69 08/09/21 06:50 Pulse Ox 95 08/09/21 08:14 Weight - Most Recent: 258 lb 4.8 oz I&O - Last 24 Hours: Intake & Output 08/08/21 08/09/21 08/09/21 22:59 06:59 14:59 Intake Total 300 418 Output Total 500 Balance -200 418 Lab Results Last 24 Hours: Laboratory Results - last 24 hr 08/08/21 08/08/21 08/08/21 Range/Units 16:38 16:38 16:38 WBC 17.59 H (5.00-10.00) 10^3/uL RBC 4.14 L (4.50-6.00) 10^6/uL Hgb 12.7 L (13.0-17.0) g/dL Hct 38.1 L (40.0-52.0) % MCV 92.0 (82.0-92.0) fL MCH 30.7 (27.0-31.0) pg MCHC 33.3 (32.0-36.0) g/dL RDW 16.1 H (11.5-14.5) % Plt Count 243 (150-400) 10^3/uL MPV 10.7 H (7.4-10.4) fL Add Manual Diff Yes Neutrophils % (Manual) 91 H (50-70) % Band Neutrophils % 3 L (4-12) % Lymphocytes % (Manual) 5 L (20-40) % Atypical Lymphs % 0 Monocytes % (Manual) 1 L (2-8) % Eosinophils % (Manual) 0 L (1-3) % Basophils % (Manual) 0 (0-1) % Metamyelocytes % Toxic Granulation Platelet Estimate Anisocytosis Few Ovalocytes Few PT (9.2-11.2) SEC INR (0.9-1.1) APTT (22.8-31.4) SEC D-Dimer, Quantitative 3220 H (<400) ng/mL ABG pH (7.35-7.45) ABG pCO2 (35-45) mmHG ABG pO2 (80-105) mmHG ABG HCO3 (22-26) mmol/L ABG Total CO2 (23-27) mmol/L ABG O2 Saturation (95-98) % ABG Base Excess (-2-3) mmol/L O2 Delivery Device Sodium 129 L (136-145) mmol/L Potassium 3.3 L (3.5-5.1) mmol/L Chloride 103 (98-107) mmol/L Carbon Dioxide 16.5 L (21.0-32.0) mmol/L Anion Gap 12.8 (5-15) mmol/L BUN 69 H* (7-18) mg/dL Creatinine 2.25 H (0.51-1.17) mg/dL Est Cr Clr Drug Dosing 31.54 mL/min Estimated GFR (MDRD) 29 mL/min Glucose 238 H (70-140) mg/dL Lactic Acid (0.4-2.0) mmol/L Calcium 8.6 L (8.7-10.3) mg/dL Phosphorus (2.6-4.7) mg/dL Magnesium (1.8-2.4) mg/dL Total Bilirubin 0.8 (0.2-1.0) mg/dL AST 60 H (15-37) U/L ALT 52 (14-63) U/L Alkaline Phosphatase 99 (46-116) U/L Creatine Kinase (26-276) U/L Troponin I High Sens (0-76.000) pg/mL C-Reactive Protein (0.0-0.9) mg/dL B-Natriuretic Peptide (0-100) pg/mL Total Protein 7.9 (6.4-8.2) g/dL Albumin 2.52 L (3.40-5.00) g/dL Specimen Type Urine Color (YELLOW) Urine Appearance (CLEAR) Urine pH (5.0-9.0) Ur Specific [place] (1.005-1.030) Urine Protein (NEGATIVE) mg/dL Urine Glucose (UA) (NEGATIVE) mg/dL Urine Ketones (NEGATIVE) mg/dL Urine Occult Blood (NEGATIVE) Urine Nitrite (NEGATIVE) Urine Bilirubin (NEGATIVE) Urine Urobilinogen (0.2-1.0) E.U./dL Ur Leukocyte Esterase (NEGATIVE) Urine RBC (0-5) /HPF Urine WBC (0-5) /HPF Ur Epithelial Cells /LPF Amorphous Sediment (0/HPF) /HPF Urine Bacteria (NONE TO FEW) /HPF Granular Casts (Auto) Urine Mucus (NEGATIVE) /LPF 08/08/21 08/08/21 08/08/21 Range/Units 16:38 20:30 20:30 WBC (5.00-10.00) 10^3/uL RBC (4.50-6.00) 10^6/uL Hgb (13.0-17.0) g/dL Hct (40.0-52.0) % MCV (82.0-92.0) fL MCH (27.0-31.0) pg MCHC (32.0-36.0) g/dL RDW (11.5-14.5) % Plt Count (150-400) 10^3/uL MPV (7.4-10.4) fL Add Manual Diff Neutrophils % (Manual) (50-70) % Band Neutrophils % (4-12) % Lymphocytes % (Manual) (20-40) % Atypical Lymphs % Monocytes % (Manual) (2-8) % Eosinophils % (Manual) (1-3) % Basophils % (Manual) (0-1) % Metamyelocytes % Toxic Granulation Platelet Estimate Anisocytosis Ovalocytes PT 10.4 (9.2-11.2) SEC INR 1.0 (0.9-1.1) APTT 39.7 H (22.8-31.4) SEC D-Dimer, Quantitative (<400) ng/mL ABG pH (7.35-7.45) ABG pCO2 (35-45) mmHG ABG pO2 (80-105) mmHG ABG HCO3 (22-26) mmol/L ABG Total CO2 (23-27) mmol/L ABG O2 Saturation (95-98) % ABG Base Excess (-2-3) mmol/L O2 Delivery Device Sodium (136-145) mmol/L Potassium (3.5-5.1) mmol/L Chloride (98-107) mmol/L Carbon Dioxide (21.0-32.0) mmol/L Anion Gap (5-15) mmol/L BUN (7-18) mg/dL Creatinine (0.51-1.17) mg/dL Est Cr Clr Drug Dosing mL/min Estimated GFR (MDRD) mL/min Glucose (70-140) mg/dL Lactic Acid 2.6 H (0.4-2.0) mmol/L Calcium (8.7-10.3) mg/dL Phosphorus (2.6-4.7) mg/dL Magnesium 2.3 (1.8-2.4) mg/dL Total Bilirubin (0.2-1.0) mg/dL AST (15-37) U/L ALT (14-63) U/L Alkaline Phosphatase (46-116) U/L Creatine Kinase 504 H* (26-276) U/L Troponin I High Sens 42.800 (0-76.000) pg/mL C-Reactive Protein > 11.0 H (0.0-0.9) mg/dL B-Natriuretic Peptide (0-100) pg/mL Total Protein (6.4-8.2) g/dL Albumin (3.40-5.00) g/dL Specimen Type Urine Color (YELLOW) Urine Appearance (CLEAR) Urine pH (5.0-9.0) Ur Specific [place] (1.005-1.030) Urine Protein (NEGATIVE) mg/dL Urine Glucose (UA) (NEGATIVE) mg/dL Urine Ketones (NEGATIVE) mg/dL Urine Occult Blood (NEGATIVE) Urine Nitrite (NEGATIVE) Urine Bilirubin (NEGATIVE) Urine Urobilinogen (0.2-1.0) E.U./dL Ur Leukocyte Esterase (NEGATIVE) Urine RBC (0-5) /HPF Urine WBC (0-5) /HPF Ur Epithelial Cells /LPF Amorphous Sediment (0/HPF) /HPF Urine Bacteria (NONE TO FEW) /HPF Granular Casts (Auto) Urine Mucus (NEGATIVE) /LPF 08/08/21 08/08/21 08/09/21 Range/Units 20:30 20:30 00:45 WBC (5.00-10.00) 10^3/uL RBC (4.50-6.00) 10^6/uL Hgb (13.0-17.0) g/dL Hct (40.0-52.0) % MCV (82.0-92.0) fL MCH (27.0-31.0) pg MCHC (32.0-36.0) g/dL RDW (11.5-14.5) % Plt Count (150-400) 10^3/uL MPV (7.4-10.4) fL Add Manual Diff Neutrophils % (Manual) (50-70) % Band Neutrophils % (4-12) % Lymphocytes % (Manual) (20-40) % Atypical Lymphs % Monocytes % (Manual) (2-8) % Eosinophils % (Manual) (1-3) % Basophils % (Manual) (0-1) % Metamyelocytes % Toxic Granulation Platelet Estimate Anisocytosis Ovalocytes PT (9.2-11.2) SEC INR (0.9-1.1) APTT (22.8-31.4) SEC D-Dimer, Quantitative (<400) ng/mL ABG pH (7.35-7.45) ABG pCO2 (35-45) mmHG ABG pO2 (80-105) mmHG ABG HCO3 (22-26) mmol/L ABG Total CO2 (23-27) mmol/L ABG O2 Saturation (95-98) % ABG Base Excess (-2-3) mmol/L O2 Delivery Device Sodium 131 L (136-145) mmol/L Potassium 3.4 L (3.5-5.1) mmol/L Chloride 104 (98-107) mmol/L Carbon Dioxide 15.3 L (21.0-32.0) mmol/L Anion Gap 15.1 H (5-15) mmol/L BUN 71 H* (7-18) mg/dL Creatinine 2.29 H (0.51-1.17) mg/dL Est Cr Clr Drug Dosing 30.99 mL/min Estimated GFR (MDRD) 28 mL/min Glucose 188 H (70-140) mg/dL Lactic Acid 1.7 (0.4-2.0) mmol/L Calcium 8.3 L (8.7-10.3) mg/dL Phosphorus (2.6-4.7) mg/dL Magnesium (1.8-2.4) mg/dL Total Bilirubin (0.2-1.0) mg/dL AST (15-37) U/L ALT (14-63) U/L Alkaline Phosphatase (46-116) U/L Creatine Kinase (26-276) U/L Troponin I High Sens (0-76.000) pg/mL C-Reactive Protein (0.0-0.9) mg/dL B-Natriuretic Peptide (0-100) pg/mL Total Protein (6.4-8.2) g/dL Albumin (3.40-5.00) g/dL Specimen Type Urincc Urine Color Yellow (YELLOW) Urine Appearance Cloudy H (CLEAR) Urine pH 5.5 (5.0-9.0) Ur Specific [place] 1.025 (1.005-1.030) Urine Protein >=300 H (NEGATIVE) mg/dL Urine Glucose (UA) Negative (NEGATIVE) mg/dL Urine Ketones Negative (NEGATIVE) mg/dL Urine Occult Blood Moderate H (NEGATIVE) Urine Nitrite Negative (NEGATIVE) Urine Bilirubin Negative (NEGATIVE) Urine Urobilinogen 0.2 (0.2-1.0) E.U./dL Ur Leukocyte Esterase Negative (NEGATIVE) Urine RBC 5-10 H (0-5) /HPF Urine WBC 5-10 H (0-5) /HPF Ur Epithelial Cells Rare /LPF Amorphous Sediment Moderate H (0/HPF) /HPF Urine Bacteria Moderate H (NONE TO FEW) /HPF Granular Casts (Auto) Moderate Urine Mucus Few H (NEGATIVE) /LPF 08/09/21 08/09/21 08/09/21 Range/Units 08:00 08:00 10:35 WBC 18.11 H (5.00-10.00) 10^3/uL RBC 3.80 L (4.50-6.00) 10^6/uL Hgb 11.6 L (13.0-17.0) g/dL Hct 35.2 L (40.0-52.0) % MCV 92.6 H (82.0-92.0) fL MCH 30.5 (27.0-31.0) pg MCHC 33.0 (32.0-36.0) g/dL RDW 16.2 H (11.5-14.5) % Plt Count 234 (150-400) 10^3/uL MPV 10.4 (7.4-10.4) fL Add Manual Diff Yes Neutrophils % (Manual) 92 H (50-70) % Band Neutrophils % 1 L (4-12) % Lymphocytes % (Manual) 4 L (20-40) % Atypical Lymphs % 0 Monocytes % (Manual) 2 (2-8) % Eosinophils % (Manual) 0 L (1-3) % Basophils % (Manual) 0 (0-1) % Metamyelocytes % 1 Toxic Granulation 1+ slight Platelet Estimate Adequate Anisocytosis 1+ slight Ovalocytes PT (9.2-11.2) SEC INR (0.9-1.1) APTT (22.8-31.4) SEC D-Dimer, Quantitative (<400) ng/mL ABG pH 7.40 (7.35-7.45) ABG pCO2 27 L (35-45) mmHG ABG pO2 97 (80-105) mmHG ABG HCO3 17.1 L (22-26) mmol/L ABG Total CO2 18 L (23-27) mmol/L ABG O2 Saturation 98 (95-98) % ABG Base Excess -6 L (-2-3) mmol/L O2 Delivery Device Simple mask Sodium 134 L (136-145) mmol/L Potassium 3.4 L (3.5-5.1) mmol/L Chloride 105 (98-107) mmol/L Carbon Dioxide 18.7 L (21.0-32.0) mmol/L Anion Gap 13.7 (5-15) mmol/L BUN 60 H* (7-18) mg/dL Creatinine 1.71 H (0.51-1.17) mg/dL Est Cr Clr Drug Dosing 41.50 mL/min Estimated GFR (MDRD) 40 mL/min Glucose 181 H (70-140) mg/dL Lactic Acid (0.4-2.0) mmol/L Calcium 8.5 L (8.7-10.3) mg/dL Phosphorus 3.5 (2.6-4.7) mg/dL Magnesium 2.5 H (1.8-2.4) mg/dL Total Bilirubin 0.6 (0.2-1.0) mg/dL AST 46 H (15-37) U/L ALT 46 (14-63) U/L Alkaline Phosphatase 95 (46-116) U/L Creatine Kinase (26-276) U/L Troponin I High Sens (0-76.000) pg/mL C-Reactive Protein > 11.0 H (0.0-0.9) mg/dL B-Natriuretic Peptide 169 H (0-100) pg/mL Total Protein 7.4 (6.4-8.2) g/dL Albumin 2.13 L (3.40-5.00) g/dL Specimen Type Urine Color (YELLOW) Urine Appearance (CLEAR) Urine pH (5.0-9.0) Ur Specific [place] (1.005-1.030) Urine Protein (NEGATIVE) mg/dL Urine Glucose (UA) (NEGATIVE) mg/dL Urine Ketones (NEGATIVE) mg/dL Urine Occult Blood (NEGATIVE) Urine Nitrite (NEGATIVE) Urine Bilirubin (NEGATIVE) Urine Urobilinogen (0.2-1.0) E.U./dL Ur Leukocyte Esterase (NEGATIVE) Urine RBC (0-5) /HPF Urine WBC (0-5) /HPF Ur Epithelial Cells /LPF Amorphous Sediment (0/HPF) /HPF Urine Bacteria (NONE TO FEW) /HPF Granular Casts (Auto) Urine Mucus (NEGATIVE) /LPF Med Orders - Current: Current Medications Acetaminophen (Acetaminophen 325 Mg Tab) 650 mg PO Q4H PRN PRN Reason: Pain (Mild 1-3)/fever Aspirin (Aspirin 81 Mg Tab.Chew) 81 mg PO DAILY [facility] Last Admin: 08/09/21 08:01 Dose: 81 mg Documented by: Dexamethasone (Dexamethasone 10 Mg/Ml Sdv) 6 mg IVPUSH DAILY [facility] Last Admin: 08/09/21 08:03 Dose: 6 mg Documented by: Enoxaparin Sodium (Enoxaparin 150 Mg/1 Ml Syringe) 110 mg SUBCUT Q12H [facility] Last Admin: 08/09/21 08:01 Dose: 110 mg Documented by: Sodium Chloride (Normal Saline) 1,000 mls @ 150 mls/hr IV ASDIRECTED [facility] Last Admin: 08/08/21 18:07 Dose: 150 mls/hr Documented by: Levofloxacin/Dextrose 250 mg/ (Premix) 50 mls @ 50 mls/hr IV Q48H [facility] Last Admin: 08/08/21 22:22 Dose: 50 mls/hr Documented by: Levofloxacin/Dextrose 500 mg/ (Premix) 100 mls @ 100 mls/hr IV Q48H [facility] Last Admin: 08/08/21 22:56 Dose: 100 mls/hr Documented by: Levothyroxine Sodium (Levothyroxine 112 Mcg Tab) 112 mcg PO DAILY [facility] Last Admin: 08/09/21 08:01 Dose: 112 mcg Documented by: Levothyroxine Sodium (Levothyroxine 25 Mcg Tab) 25 mcg PO DAILY [facility] Last Admin: 08/09/21 08:01 Dose: 25 mcg Documented by: Pantoprazole Sodium (Pantoprazole 40 Mg Tab.Cr) 40 mg PO DAILY [facility] Last Admin: 08/09/21 08:01 Dose: 40 mg Documented by: Discontinued Medications Sodium Chloride (Normal Saline) 1,000 mls @ 999 mls/hr IV .BOLUS ONE Stop: 08/08/21 18:00 Last Admin: 08/08/21 17:00 Dose: 999 mls/hr Documented by: Sodium Chloride (Normal Saline) 1,000 mls @ 150 mls/hr IV .BOLUS ONE Stop: 08/09/21 00:46 Last Admin: 08/08/21 18:07 Dose: 150 mls/hr Documented by: Levofloxacin/Dextrose 500 mg/ (Premix) 100 mls @ 100 mls/hr IV Q24H [facility] Last Admin: 08/09/21 00:17 Dose: Not Given Documented by: Remdesivir 200 mg/ Sodium (Chloride) 250 mls @ 250 mls/hr IV ONETIME ONE Stop: 08/09/21 09:55 Potassium Chloride (Potassium Chloride 20 Meq Tab.Er) 40 meq PO ONETIME ONE Stop: 08/09/21 09:54 - Exam Quality Assessment: Supplemental Oxygen, DVT Prophylaxis General: Alert, Oriented, Cooperative, No Acute Distress HEENT: Pupils Equal, Mucous Membr. Moist/[place] Neck: Supple, Trachea Midline Lungs: Decreased Breath Sounds, Crackles (to R mid-lung and base). No: Rhonchi, Wheezing Cardiovascular: Regular Rate, Regular Rhythm, No Murmurs GI/Abdominal Exam: Normal Bowel Sounds, Soft, Non-Tender, No Distention (Male) Exam: Deferred Back Exam: Normal Inspection, Full Range of Motion Extremities: Normal Inspection, Normal Range of Motion, Non-Tender, No Pedal Edema, Normal Capillary Refill Peripheral Pulses: 2+: Dorsalis Pedis (L), Dorsalis Pedis (R) Skin: Warm, Dry, Intact Neurological: No New Focal Deficit Psy/Mental Status: Alert, Normal Affect, Normal Mood - Patient Data Lab Results Last 24 hrs: Laboratory Results - last 24 hr 08/08/21 08/08/21 08/08/21 Range/Units 16:38 16:38 16:38 WBC 17.59 H (5.00-10.00) 10^3/uL RBC 4.14 L (4.50-6.00) 10^6/uL Hgb 12.7 L (13.0-17.0) g/dL Hct 38.1 L (40.0-52.0) % MCV 92.0 (82.0-92.0) fL MCH 30.7 (27.0-31.0) pg MCHC 33.3 (32.0-36.0) g/dL RDW 16.1 H (11.5-14.5) % Plt Count 243 (150-400) 10^3/uL MPV 10.7 H (7.4-10.4) fL Add Manual Diff Yes Neutrophils % (Manual) 91 H (50-70) % Band Neutrophils % 3 L (4-12) % Lymphocytes % (Manual) 5 L (20-40) % Atypical Lymphs % 0 Monocytes % (Manual) 1 L (2-8) % Eosinophils % (Manual) 0 L (1-3) % Basophils % (Manual) 0 (0-1) % Metamyelocytes % Toxic Granulation Platelet Estimate Anisocytosis Few Ovalocytes Few PT (9.2-11.2) SEC INR (0.9-1.1) APTT (22.8-31.4) SEC D-Dimer, Quantitative 3220 H (<400) ng/mL ABG pH (7.35-7.45) ABG pCO2 (35-45) mmHG ABG pO2 (80-105) mmHG ABG HCO3 (22-26) mmol/L ABG Total CO2 (23-27) mmol/L ABG O2 Saturation (95-98) % ABG Base Excess (-2-3) mmol/L O2 Delivery Device Sodium 129 L (136-145) mmol/L Potassium 3.3 L (3.5-5.1) mmol/L Chloride 103 (98-107) mmol/L Carbon Dioxide 16.5 L (21.0-32.0) mmol/L Anion Gap 12.8 (5-15) mmol/L BUN 69 H* (7-18) mg/dL Creatinine 2.25 H (0.51-1.17) mg/dL Est Cr Clr Drug Dosing 31.54 mL/min Estimated GFR (MDRD) 29 mL/min Glucose 238 H (70-140) mg/dL Lactic Acid (0.4-2.0) mmol/L Calcium 8.6 L (8.7-10.3) mg/dL Phosphorus (2.6-4.7) mg/dL Magnesium (1.8-2.4) mg/dL Total Bilirubin 0.8 (0.2-1.0) mg/dL AST 60 H (15-37) U/L ALT 52 (14-63) U/L Alkaline Phosphatase 99 (46-116) U/L Creatine Kinase (26-276) U/L Troponin I High Sens (0-76.000) pg/mL C-Reactive Protein (0.0-0.9) mg/dL B-Natriuretic Peptide (0-100) pg/mL Total Protein 7.9 (6.4-8.2) g/dL Albumin 2.52 L (3.40-5.00) g/dL Specimen Type Urine Color (YELLOW) Urine Appearance (CLEAR) Urine pH (5.0-9.0) Ur Specific [place] (1.005-1.030) Urine Protein (NEGATIVE) mg/dL Urine Glucose (UA) (NEGATIVE) mg/dL Urine Ketones (NEGATIVE) mg/dL Urine Occult Blood (NEGATIVE) Urine Nitrite (NEGATIVE) Urine Bilirubin (NEGATIVE) Urine Urobilinogen (0.2-1.0) E.U./dL Ur Leukocyte Esterase (NEGATIVE) Urine RBC (0-5) /HPF Urine WBC (0-5) /HPF Ur Epithelial Cells /LPF Amorphous Sediment (0/HPF) /HPF Urine Bacteria (NONE TO FEW) /HPF Granular Casts (Auto) Urine Mucus (NEGATIVE) /LPF 08/08/21 08/08/21 08/08/21 Range/Units 16:38 20:30 20:30 WBC (5.00-10.00) 10^3/uL RBC (4.50-6.00) 10^6/uL Hgb (13.0-17.0) g/dL Hct (40.0-52.0) % MCV (82.0-92.0) fL MCH (27.0-31.0) pg MCHC (32.0-36.0) g/dL RDW (11.5-14.5) % Plt Count (150-400) 10^3/uL MPV (7.4-10.4) fL Add Manual Diff Neutrophils % (Manual) (50-70) % Band Neutrophils % (4-12) % Lymphocytes % (Manual) (20-40) % Atypical Lymphs % Monocytes % (Manual) (2-8) % Eosinophils % (Manual) (1-3) % Basophils % (Manual) (0-1) % Metamyelocytes % Toxic Granulation Platelet Estimate Anisocytosis Ovalocytes PT 10.4 (9.2-11.2) SEC INR 1.0 (0.9-1.1) APTT 39.7 H (22.8-31.4) SEC D-Dimer, Quantitative (<400) ng/mL ABG pH (7.35-7.45) ABG pCO2 (35-45) mmHG ABG pO2 (80-105) mmHG ABG HCO3 (22-26) mmol/L ABG Total CO2 (23-27) mmol/L ABG O2 Saturation (95-98) % ABG Base Excess (-2-3) mmol/L O2 Delivery Device Sodium (136-145) mmol/L Potassium (3.5-5.1) mmol/L Chloride (98-107) mmol/L Carbon Dioxide (21.0-32.0) mmol/L Anion Gap (5-15) mmol/L BUN (7-18) mg/dL Creatinine (0.51-1.17) mg/dL Est Cr Clr Drug Dosing mL/min Estimated GFR (MDRD) mL/min Glucose (70-140) mg/dL Lactic Acid 2.6 H (0.4-2.0) mmol/L Calcium (8.7-10.3) mg/dL Phosphorus (2.6-4.7) mg/dL Magnesium 2.3 (1.8-2.4) mg/dL Total Bilirubin (0.2-1.0) mg/dL AST (15-37) U/L ALT (14-63) U/L Alkaline Phosphatase (46-116) U/L Creatine Kinase 504 H* (26-276) U/L Troponin I High Sens 42.800 (0-76.000) pg/mL C-Reactive Protein > 11.0 H (0.0-0.9) mg/dL B-Natriuretic Peptide (0-100) pg/mL Total Protein (6.4-8.2) g/dL Albumin (3.40-5.00) g/dL Specimen Type Urine Color (YELLOW) Urine Appearance (CLEAR) Urine pH (5.0-9.0) Ur Specific [place] (1.005-1.030) Urine Protein (NEGATIVE) mg/dL Urine Glucose (UA) (NEGATIVE) mg/dL Urine Ketones (NEGATIVE) mg/dL Urine Occult Blood (NEGATIVE) Urine Nitrite (NEGATIVE) Urine Bilirubin (NEGATIVE) Urine Urobilinogen (0.2-1.0) E.U./dL Ur Leukocyte Esterase (NEGATIVE) Urine RBC (0-5) /HPF Urine WBC (0-5) /HPF Ur Epithelial Cells /LPF Amorphous Sediment (0/HPF) /HPF Urine Bacteria (NONE TO FEW) /HPF Granular Casts (Auto) Urine Mucus (NEGATIVE) /LPF 08/08/21 08/08/21 08/09/21 Range/Units 20:30 20:30 00:45 WBC (5.00-10.00) 10^3/uL RBC (4.50-6.00) 10^6/uL Hgb (13.0-17.0) g/dL Hct (40.0-52.0) % MCV (82.0-92.0) fL MCH (27.0-31.0) pg MCHC (32.0-36.0) g/dL RDW (11.5-14.5) % Plt Count (150-400) 10^3/uL MPV (7.4-10.4) fL Add Manual Diff Neutrophils % (Manual) (50-70) % Band Neutrophils % (4-12) % Lymphocytes % (Manual) (20-40) % Atypical Lymphs % Monocytes % (Manual) (2-8) % Eosinophils % (Manual) (1-3) % Basophils % (Manual) (0-1) % Metamyelocytes % Toxic Granulation Platelet Estimate Anisocytosis Ovalocytes PT (9.2-11.2) SEC INR (0.9-1.1) APTT (22.8-31.4) SEC D-Dimer, Quantitative (<400) ng/mL ABG pH (7.35-7.45) ABG pCO2 (35-45) mmHG ABG pO2 (80-105) mmHG ABG HCO3 (22-26) mmol/L ABG Total CO2 (23-27) mmol/L ABG O2 Saturation (95-98) % ABG Base Excess (-2-3) mmol/L O2 Delivery Device Sodium 131 L (136-145) mmol/L Potassium 3.4 L (3.5-5.1) mmol/L Chloride 104 (98-107) mmol/L Carbon Dioxide 15.3 L (21.0-32.0) mmol/L Anion Gap 15.1 H (5-15) mmol/L BUN 71 H* (7-18) mg/dL Creatinine 2.29 H (0.51-1.17) mg/dL Est Cr Clr Drug Dosing 30.99 mL/min Estimated GFR (MDRD) 28 mL/min Glucose 188 H (70-140) mg/dL Lactic Acid 1.7 (0.4-2.0) mmol/L Calcium 8.3 L (8.7-10.3) mg/dL Phosphorus (2.6-4.7) mg/dL Magnesium (1.8-2.4) mg/dL Total Bilirubin (0.2-1.0) mg/dL AST (15-37) U/L ALT (14-63) U/L Alkaline Phosphatase (46-116) U/L Creatine Kinase (26-276) U/L Troponin I High Sens (0-76.000) pg/mL C-Reactive Protein (0.0-0.9) mg/dL B-Natriuretic Peptide (0-100) pg/mL Total Protein (6.4-8.2) g/dL Albumin (3.40-5.00) g/dL Specimen Type Urincc Urine Color Yellow (YELLOW) Urine Appearance Cloudy H (CLEAR) Urine pH 5.5 (5.0-9.0) Ur Specific [place] 1.025 (1.005-1.030) Urine Protein >=300 H (NEGATIVE) mg/dL Urine Glucose (UA) Negative (NEGATIVE) mg/dL Urine Ketones Negative (NEGATIVE) mg/dL Urine Occult Blood Moderate H (NEGATIVE) Urine Nitrite Negative (NEGATIVE) Urine Bilirubin Negative (NEGATIVE) Urine Urobilinogen 0.2 (0.2-1.0) E.U./dL Ur Leukocyte Esterase Negative (NEGATIVE) Urine RBC 5-10 H (0-5) /HPF Urine WBC 5-10 H (0-5) /HPF Ur Epithelial Cells Rare /LPF Amorphous Sediment Moderate H (0/HPF) /HPF Urine Bacteria Moderate H (NONE TO FEW) /HPF Granular Casts (Auto) Moderate Urine Mucus Few H (NEGATIVE) /LPF 08/09/21 08/09/21 08/09/21 Range/Units 08:00 08:00 10:35 WBC 18.11 H (5.00-10.00) 10^3/uL RBC 3.80 L (4.50-6.00) 10^6/uL Hgb 11.6 L (13.0-17.0) g/dL Hct 35.2 L (40.0-52.0) % MCV 92.6 H (82.0-92.0) fL MCH 30.5 (27.0-31.0) pg MCHC 33.0 (32.0-36.0) g/dL RDW 16.2 H (11.5-14.5) % Plt Count 234 (150-400) 10^3/uL MPV 10.4 (7.4-10.4) fL Add Manual Diff Yes Neutrophils % (Manual) 92 H (50-70) % Band Neutrophils % 1 L (4-12) % Lymphocytes % (Manual) 4 L (20-40) % Atypical Lymphs % 0 Monocytes % (Manual) 2 (2-8) % Eosinophils % (Manual) 0 L (1-3) % Basophils % (Manual) 0 (0-1) % Metamyelocytes % 1 Toxic Granulation 1+ slight Platelet Estimate Adequate Anisocytosis 1+ slight Ovalocytes PT (9.2-11.2) SEC INR (0.9-1.1) APTT (22.8-31.4) SEC D-Dimer, Quantitative (<400) ng/mL ABG pH 7.40 (7.35-7.45) ABG pCO2 27 L (35-45) mmHG ABG pO2 97 (80-105) mmHG ABG HCO3 17.1 L (22-26) mmol/L ABG Total CO2 18 L (23-27) mmol/L ABG O2 Saturation 98 (95-98) % ABG Base Excess -6 L (-2-3) mmol/L O2 Delivery Device Simple mask Sodium 134 L (136-145) mmol/L Potassium 3.4 L (3.5-5.1) mmol/L Chloride 105 (98-107) mmol/L Carbon Dioxide 18.7 L (21.0-32.0) mmol/L Anion Gap 13.7 (5-15) mmol/L BUN 60 H* (7-18) mg/dL Creatinine 1.71 H (0.51-1.17) mg/dL Est Cr Clr Drug Dosing 41.50 mL/min Estimated GFR (MDRD) 40 mL/min Glucose 181 H (70-140) mg/dL Lactic Acid (0.4-2.0) mmol/L Calcium 8.5 L (8.7-10.3) mg/dL Phosphorus 3.5 (2.6-4.7) mg/dL Magnesium 2.5 H (1.8-2.4) mg/dL Total Bilirubin 0.6 (0.2-1.0) mg/dL AST 46 H (15-37) U/L ALT 46 (14-63) U/L Alkaline Phosphatase 95 (46-116) U/L Creatine Kinase (26-276) U/L Troponin I High Sens (0-76.000) pg/mL C-Reactive Protein > 11.0 H (0.0-0.9) mg/dL B-Natriuretic Peptide 169 H (0-100) pg/mL Total Protein 7.4 (6.4-8.2) g/dL Albumin 2.13 L (3.40-5.00) g/dL Specimen Type Urine Color (YELLOW) Urine Appearance (CLEAR) Urine pH (5.0-9.0) Ur Specific [place] (1.005-1.030) Urine Protein (NEGATIVE) mg/dL Urine Glucose (UA) (NEGATIVE) mg/dL Urine Ketones (NEGATIVE) mg/dL Urine Occult Blood (NEGATIVE) Urine Nitrite (NEGATIVE) Urine Bilirubin (NEGATIVE) Urine Urobilinogen (0.2-1.0) E.U./dL Ur Leukocyte Esterase (NEGATIVE) Urine RBC (0-5) /HPF Urine WBC (0-5) /HPF Ur Epithelial Cells /LPF Amorphous Sediment (0/HPF) /HPF Urine Bacteria (NONE TO FEW) /HPF Granular Casts (Auto) Urine Mucus (NEGATIVE) /LPF Result Diagrams: 08/09/21 08:00 08/09/21 08:00 Sepsis Event Note - Evaluation Sepsis Screening Result: Severe Sepsis Risk - Focused Exam Vital Signs: Vital Signs Temp Temp Pulse Resp BP Pulse Ox 08/09/21 08:14 96.7 F L 82 22 H 95 08/09/21 06:50 96.9 F 83 24 H 107/69 97 08/09/21 03:00 97.4 F 75 24 H 115/48 L 97 - Problem List Review Problem List Initiated/Reviewed/Updated: Yes - My Orders Last 24 Hours: My Active Orders 08/08/21 17:00 Severe Sepsis Onset Time [OM.PC] Stat 08/08/21 21:00 Enoxaparin [Lovenox] 110 mg SUBCUT Q12H Levofloxacin/Dextrose 5%-Water [Levaquin in D5W 250 MG/50 ML] 250 mg Premix Bag 1 bag IV Q48H 08/08/21 21:30 dexAMETHasone [Decadron] 6 mg IVPUSH DAILY 08/08/21 21:34 Intake and Output [RC] 06,14,22 Oxygen Therapy [RC] PRN Up With Assistance [RC] ASDIRECTED VTE/DVT Education [RC] DAILY Vital Signs [RC] 03,07,11,15,19,23 Acetaminophen [TylenoL] 650 mg PO Q4H PRN Resuscitation Status Routine 08/08/21 21:35 Cardiac Monitoring [RC] 03,07,11,15,19,23 08/08/21 22:00 Levofloxacin/Dextrose 5%-Water [Levaquin in D5W 500 MG/100 ML] 500 mg Premix Bag 1 bag IV Q48H 08/09/21 07:14 HEPATIC FUNCTION PANEL,HFP [CHEM] Stat 08/09/21 Breakfast [employer] Diet [DIET] 08/09/21 09:00 Aspirin 81 mg PO DAILY Levothyroxine 112 mcg PO DAILY Levothyroxine 25 mcg PO DAILY Pantoprazole [ProTONIX] 40 mg PO DAILY 08/10/21 10:00 HEPATIC FUNCTION PANEL,HFP [CHEM] DAILY 08/11/21 10:00 HEPATIC FUNCTION PANEL,HFP [CHEM] DAILY 08/12/21 10:00 HEPATIC FUNCTION PANEL,HFP [CHEM] DAILY 08/13/21 10:00 HEPATIC FUNCTION PANEL,HFP [CHEM] DAILY - Plan Plan:: HPI summary: Marquis is a 71 yM patient who notified the [facility] clinic of possible COVID symtoms on 08/05/21. COVID test was [id number]. Patient had reported onset of symptoms initially on 07/26/21 with worsening of symptoms on with onset of cough. Patient met the criteria for monoclonal antibodies given chronic conditions and age and was agreeable to receive this treatment. Patient received the BAM infusion the evening of 08/05/21 at [facility]. [place] home monitoring was also started via [employer] for symptom monitoring. O2 sat at home 87-88% per patient. Reports fever and chills. Patient states he started to feel worse yesterday and today with decreased appetite and fluid intake, fatigue, intermittent mild lightheadedness, cough and shortness of breath which increased this afternoon and this scared him prompting him to call his son to take him to the ER for evaluation. ED course: Patient tachycardic and hypotensive in ER. NS bolus in ER, followed by 150ml/hr. CXR suggestive of pneumonia with linear opacities. Troponin negative 42.800. WBC 17.59, neutrophils 91%, Hgb 12.7, Plt 243. Na 129, K 3.3, CO2 16.5, BUN 69, Field Agent 2.25, GFR 29, AST 60. INR 1.0, PTT 39.1. CK 504. Mg 2.3. Troponin negative. EKG indicated sinus tach, otherwise normal. Hospital course: 08/08/21: Patient admitted to inpatient status tonight. Patient reports cough, shortness of breath. Denies CP, nausea, sweating. Reports decreased fluid intake and fatigue for the past few days. HR slightly tachycardic, improved from prior. Normotensive upon admission. Low grade temp 99. No indication of respiratory distress, patient conversational. Patient alert, oriented. Lung sounds dim with crackles, rhonchi to bases. Repeat labs ordered for am as below; additional labs of BNP, Mg, Phos. No known CHF - patient had an echo in 2014 with normal EF, no diastolic dysfunction at that time. 08/09/21: No calls overnight. Patient states he feels a little better today, he sat on the edge of the bed for breakfast after decreased appetite recently. Breathing improved, reports less SOB, non-productive cough. Lung sounds improved today, crackles to R mid-lung and base. Hemodynamically stable, afebrile. Renal indices improving though remain elevated; mild hypokalemia - PO supplementation today. BNP 169, last echo normal (2014). ABG's per Dr Ventura with normal pH 7.40. UA indicates moderate bacteria and WBC 5-10k, urine culture pending. Repeat labs in am CBC, CMP, CRP, Mg, Phos, LA. Hospitalization problems and plan: # COVID-19 infection # Elevated D-dimer 3220 - unable to obtain CTA Chest to R/O PE due to ROBB, will start lovenox at therapeutic dosing 110mg subq BID # Elevated CK 504 -HOLD statin # Elevated CRP > 11.0 # Elevated PTT (mild) 39.7 - Continue Dexamethasone 6mg IV (total of 10 day course IV/PO) - Continue Lovenox 1mg/kg BID ~ 110mg subq BID - start remedesevir today per protocol, GFR 40 this morning - Repeat CRP, CK Tuesday # Pneumonia - Patchy areas of linear opacification to bilateral bases R>L on CXR suggestive of developing pneumonia per radiology # Sepsis # Leukocytosis with neutrophilia - WBC 18.11 (N 92%) - suggestive of bacterial etiology # Acute hypoxia - O2 sat 95 on 6L simple mask; maintain O2 sat > 90%. Will trial NC today # lactic acidosis - initial result 2.6 afternoon - Repeat lactic acid, normalized to 1.7 - Continue levaquin 750mg IV Q48H given ROBB (10 day course) - BC x 2 pending - 11/15 indicate possible gm -ve organism, lab questions possible contamination - sending in for further evaluation - Repeat CBC, LA in am # ROBB - BUN 60, Creatinine 1.71, GFR 40. # Dehydration - NS bolusing in ER # Tachycardia; resolved; HR 80s-90s # Hypokalemia, mild - K-Dur 40 mEq x 1 today - Cardiac monitoring - Continue NS @ 150ml/hr - Monitor I&O - Repeat CMP in am # Hypoalbuminemia; Albumin 2.13 - Start protein dietary supplementation Chronic, stable conditions: # HTN - takes metoprolol 100mg in am, 50mg at HS, lisinopril 20mg PO daily, HCTZ 12.5mg PO daily (HOLDING ANTI-HYPERTENSIVES DUE TO ROBB) # HLD - takes lipitor 40mg PO daily - HOLD STATIN CK 504 # Hypothyroidism - continue levothyroxine 137mcg PO daily; TSH 2.28 (04/21/21) # Diabetes mellitus, TII - hold metformin due to ROBB. Last A1C 7.1%. # GERD - continue prilosec 20mg PO daily # Gout - allopurinol 400mg PO daily (HOLD) # Obesity Hospitalization details: # FEN: NS 150ml/hr, K 3.4, ADA diet # PPX: lovenox 1mg/kg subq BID ~ 110mg, prilosec 20mg PO daily # Code status: FULL CODE - Discussed code status, patient wishes to be intubated if respiratory status deteriorates # Emergency contact: DaughterRosa [phone] # Disposition: Patient continues to meet inpatient criteria for IV hydration, anti-virals, antibiotics and oxygen therapy. Discharge planning to be based on clinical course.
[2021-08-09] MEDS: Sodium Chloride 0.9% 1,000 ML IV SCH ×2 (13:00→20:43)
[2021-08-09] MEDS: Cholecalciferol (Vitamin D3) 25 MCG Tab PO SCH (15:27)
[2021-08-09] MEDS: Zinc (Zinc Gluconate) 50 MG Tab PO SCH (15:27)
[2021-08-09] MEDS: Ascorbic Acid 500 MG Tab PO SCH ×2 (15:27→20:44)
[2021-08-10] MEDS: Sodium Chloride 0.9% 1,000 ML IV SCH ×3 (03:32→20:40)
[2021-08-10] MEDS: Aspirin 81 MG Tab.Chew PO SCH (08:27)
[2021-08-10] MEDS: Ascorbic Acid 500 MG Tab PO SCH ×2 (08:27→20:41)
[2021-08-10] MEDS: Zinc (Zinc Gluconate) 50 MG Tab PO SCH (08:27)
[2021-08-10] MEDS: Levothyroxine 112 MCG Tab PO SCH (08:28)
[2021-08-10] MEDS: Cholecalciferol (Vitamin D3) 25 MCG Tab PO SCH (08:28)
[2021-08-10] MEDS: Pantoprazole 40 MG Tab.CR PO SCH (08:28)
[2021-08-10] MEDS: Enoxaparin 150 MG/1 ML Syringe SUBCUT SCH ×2 (08:28→20:42)
[2021-08-10] MEDS: Dexamethasone 10 MG/ML SDV IVPUSH SCH (08:28)
[2021-08-10] MEDS: Levothyroxine 25 MCG Tab PO SCH (08:28)
[2021-08-10 08:35] LABS: ANION GAP 14.3 mmol/L (5-15)
[2021-08-10] MEDS: REMDESIVIR 100 MG in Sodium Chloride 0.9% 250 ML IV SCH (10:16)
[2021-08-10] MEDS: Nystatin Topical Powder 15 GM Bottle TOP SCH ×2 (10:17→20:45)
[2021-08-10] MEDS ORDERED: Levofloxacin/Dextrose 5%-Water 250 MG in Premix Bag 1 BAG IV SCH (12:00)
[2021-08-10] MEDS: Phosphorus #1 250 MG Tab PO SCH ×2 (12:15→20:41)
[2021-08-10] MEDS: Levofloxacin/Dextrose 5%-Water 500 MG in Premix Bag 1 BAG IV SCH (12:16)
--- NOTE | 2021-08-10 12:32 | PCM.PN ---
- General Info Date of Service: 08/10/21 Functional Status: Reports: Pain Controlled, Tolerating Diet, Urinating, Incentive Spirometry (2000ml). Denies: New Symptoms - Review of Systems General: Reports: Weakness (improving), Fatigue (improving). Denies: Fever, Chills HEENT: Reports: No Symptoms Pulmonary: Reports: Shortness of Breath (improving), Cough (improving). Denies: Sputum, Wheezing Cardiovascular: Denies: Chest Pain, Palpitations, Edema Gastrointestinal: Reports: Constipation (last BM tuesday before admission, denies need for laxative today) Genitourinary: Reports: No Symptoms Musculoskeletal: Reports: No Symptoms Skin: Reports: No Symptoms Neurological: Reports: No Symptoms Psychiatric: Reports: No Symptoms - Patient Data Vitals - Most Recent: Last Vital Signs Temp 95.5 F L 08/10/21 10:45 Pulse 84 08/10/21 10:45 Resp 24 H 08/10/21 10:45 BP 108/60 08/10/21 10:30 Pulse Ox 95 08/10/21 10:45 Weight - Most Recent: 258 lb 4.8 oz I&O - Last 24 Hours: Intake & Output 08/09/21 08/10/21 08/10/21 22:59 06:59 14:59 Intake Total 1157 1769 Output Total 600 825 Balance 557 944 Lab Results Last 24 Hours: Laboratory Results - last 24 hr 08/10/21 08/10/21 08/10/21 Range/Units 07:25 07:25 07:25 WBC 17.37 H (5.00-10.00) 10^3/uL RBC 3.83 L (4.50-6.00) 10^6/uL Hgb 11.6 L (13.0-17.0) g/dL Hct 35.9 L (40.0-52.0) % MCV 93.7 H (82.0-92.0) fL MCH 30.3 (27.0-31.0) pg MCHC 32.3 (32.0-36.0) g/dL RDW 16.2 H (11.5-14.5) % Plt Count 290 (150-400) 10^3/uL MPV 10.2 (7.4-10.4) fL Immature Gran % (Auto) 2.4 (0.0-5.0) % Neut % (Auto) 89.6 H (50.0-70.0) % Lymph % (Auto) 4.4 L (20.0-40.0) % Benton % (Auto) 3.5 (2.0-8.0) % Eos % (Auto) 0.0 L (1.0-3.0) % Baso % (Auto) 0.1 (0.0-1.0) % Neut # (Auto) 15.57 H (2.50-7.00) 10^3/uL Lymph # (Auto) 0.76 L (1.00-4.00) 10^3/uL Benton # (Auto) 0.61 (0.10-0.80) 10^3/uL Eos # (Auto) 0.00 L (0.10-0.30) 10^3/uL Baso # (Auto) 0.01 (0.00-0.10) 10^3/uL Immature Gran # (Auto) 0.42 (0.00-0.50) 10^3/uL Sodium 139 (138-146) mmol/L Potassium 3.6 (3.5-4.5) mmol/L Chloride 111 H (98-107) mmol/L Carbon Dioxide 17.3 L (21.0-32.0) mmol/L Anion Gap 14.3 (5-15) mmol/L BUN 49 H (7-18) mg/dL Creatinine 1.25 H (0.51-1.17) mg/dL Est Cr Clr Drug Dosing 56.78 mL/min Estimated GFR (MDRD) 57 mL/min Glucose 206 H (70-140) mg/dL Lactic Acid (0.4-2.0) mmol/L Calcium 8.8 (8.7-10.3) mg/dL Phosphorus 2.3 L (2.6-4.7) mg/dL Magnesium 2.2 (1.8-2.4) mg/dL Total Bilirubin 0.3 0.3 (0.2-1.0) mg/dL Direct Bilirubin 0.1 (0.0-0.2) mg/dL Indirect Bilirubin 0.2 mg/dL AST 55 H 50 H (15-37) U/L ALT 67 H 65 H (14-63) U/L Alkaline Phosphatase 96 93 (46-116) U/L Total Protein 7.0 6.9 (6.4-8.2) g/dL Albumin 1.97 L 1.95 L (3.40-5.00) g/dL Globulin 5.03 Albumin/Globulin Ratio 0.39 / Range/Units 07:25 WBC (5.00-10.00) 10^3/uL RBC (4.50-6.00) 10^6/uL Hgb (13.0-17.0) g/dL Hct (40.0-52.0) % MCV (82.0-92.0) fL MCH (27.0-31.0) pg MCHC (32.0-36.0) g/dL RDW (11.5-14.5) % Plt Count (150-400) 10^3/uL MPV (7.4-10.4) fL Immature Gran % (Auto) (0.0-5.0) % Neut % (Auto) (50.0-70.0) % Lymph % (Auto) (20.0-40.0) % Benton % (Auto) (2.0-8.0) % Eos % (Auto) (1.0-3.0) % Baso % (Auto) (0.0-1.0) % Neut # (Auto) (2.50-7.00) 10^3/uL Lymph # (Auto) (1.00-4.00) 10^3/uL Benton # (Auto) (0.10-0.80) 10^3/uL Eos # (Auto) (0.10-0.30) 10^3/uL Baso # (Auto) (0.00-0.10) 10^3/uL Immature Gran # (Auto) (0.00-0.50) 10^3/uL Sodium (138-146) mmol/L Potassium (3.5-4.5) mmol/L Chloride (98-107) mmol/L Carbon Dioxide (21.0-32.0) mmol/L Anion Gap (5-15) mmol/L BUN (7-18) mg/dL Creatinine (0.51-1.17) mg/dL Est Cr Clr Drug Dosing mL/min Estimated GFR (MDRD) mL/min Glucose (70-140) mg/dL Lactic Acid 1.9 (0.4-2.0) mmol/L Calcium (8.7-10.3) mg/dL Phosphorus (2.6-4.7) mg/dL Magnesium (1.8-2.4) mg/dL Total Bilirubin (0.2-1.0) mg/dL Direct Bilirubin (0.0-0.2) mg/dL Indirect Bilirubin mg/dL AST (15-37) U/L ALT (14-63) U/L Alkaline Phosphatase (46-116) U/L Total Protein (6.4-8.2) g/dL Albumin (3.40-5.00) g/dL Globulin Albumin/Globulin Ratio Da Results Last 24 Hours: Microbiology 08/10/21 11:00 Gram Stain - Final Blood - Arm, Right 08/08/21 20:30 Aerobic Blood Culture - Preliminary Blood - Venous - Lab Draw NO GROWTH AFTER 1 DAY Anaerobic Blood Culture - Preliminary Med Orders - Current: Current Medications Acetaminophen (Acetaminophen 325 Mg Tab) 650 mg PO Q4H PRN PRN Reason: Pain (Mild 1-3)/fever Ascorbic Acid (Ascorbic Acid 500 Mg Tab) 1,000 mg PO BID [facility] Last Admin: 08/10/21 08:27 Dose: 1,000 mg Documented by: Aspirin (Aspirin 81 Mg Tab.Chew) 81 mg PO DAILY [facility] Last Admin: 08/10/21 08:27 Dose: 81 mg Documented by: Cholecalciferol (Cholecalciferol (Vitamin D3) 25 Mcg Tab) 25 mcg PO DAILY [facility] Last Admin: 08/10/21 08:28 Dose: 25 mcg Documented by: Dexamethasone (Dexamethasone 10 Mg/Ml Sdv) 6 mg IVPUSH DAILY [facility] Last Admin: 08/10/21 08:28 Dose: 6 mg Documented by: Enoxaparin Sodium (Enoxaparin 150 Mg/1 Ml Syringe) 110 mg SUBCUT Q12H [facility] Last Admin: 08/10/21 08:28 Dose: 110 mg Documented by: Sodium Chloride (Normal Saline) 1,000 mls @ 150 mls/hr IV ASDIRECTED [facility] Last Admin: 08/10/21 10:15 Dose: 150 mls/hr Documented by: Remdesivir 100 mg/ Sodium (Chloride) 250 mls @ 250 mls/hr IV Q24H [facility] Last Admin: 08/10/21 10:16 Dose: 250 mls/hr Documented by: Levofloxacin/Dextrose 250 mg/ (Premix) 50 mls @ 50 mls/hr IV Q24H [facility] Levofloxacin/Dextrose 500 mg/ (Premix) 100 mls @ 100 mls/hr IV Q24H [facility] Last Admin: 08/10/21 12:16 Dose: 100 mls/hr Documented by: Levothyroxine Sodium (Levothyroxine 112 Mcg Tab) 112 mcg PO DAILY [facility] Last Admin: 08/10/21 08:28 Dose: 112 mcg Documented by: Levothyroxine Sodium (Levothyroxine 25 Mcg Tab) 25 mcg PO DAILY [facility] Last Admin: 08/10/21 08:28 Dose: 25 mcg Documented by: Nystatin (Nystatin Topical Powder 15 Gm Bottle) 1 gm TOP BID [facility] Last Admin: 08/10/21 10:17 Dose: 1 applic Documented by: Pantoprazole Sodium (Pantoprazole 40 Mg Tab.Cr) 40 mg PO DAILY [facility] Last Admin: 08/10/21 08:28 Dose: 40 mg Documented by: Sodium Phosphate (Phosphorus #1 250 Mg Tab) 250 mg PO BID [facility] Last Admin: 08/10/21 12:15 Dose: 250 mg Documented by: Zinc Gluconate (Zinc (Zinc Gluconate) 50 Mg Tab) 200 mg PO DAILY [facility] Stop: 08/13/21 14:30 Last Admin: 08/10/21 08:27 Dose: 200 mg Documented by: Discontinued Medications Sodium Chloride (Normal Saline) 1,000 mls @ 999 mls/hr IV .BOLUS ONE Stop: 08/08/21 18:00 Last Admin: 08/08/21 17:00 Dose: 999 mls/hr Documented by: Sodium Chloride (Normal Saline) 1,000 mls @ 150 mls/hr IV .BOLUS ONE Stop: 08/09/21 00:46 Last Admin: 08/08/21 18:07 Dose: 150 mls/hr Documented by: Levofloxacin/Dextrose 250 mg/ (Premix) 50 mls @ 50 mls/hr IV Q48H [facility] Last Admin: 08/08/21 22:22 Dose: 50 mls/hr Documented by: Levofloxacin/Dextrose 500 mg/ (Premix) 100 mls @ 100 mls/hr IV Q24H [facility] Last Admin: 08/09/21 00:17 Dose: Not Given Documented by: Levofloxacin/Dextrose 500 mg/ (Premix) 100 mls @ 100 mls/hr IV Q48H [facility] Last Admin: 08/08/21 22:56 Dose: 100 mls/hr Documented by: Remdesivir 200 mg/ Sodium (Chloride) 250 mls @ 250 mls/hr IV ONETIME ONE Stop: 08/09/21 09:55 Last Admin: 08/09/21 11:15 Dose: 250 mls/hr Documented by: Potassium Chloride (Potassium Chloride 20 Meq Tab.Er) 40 meq PO ONETIME ONE Stop: 08/09/21 09:54 Last Admin: 08/09/21 11:26 Dose: 40 meq Documented by: - Exam Quality Assessment: Supplemental Oxygen (decreased to 4L NC), DVT Prophylaxis (lovenox) General: Alert, Oriented, Cooperative, No Acute Distress HEENT: Pupils Equal, Mucous Membr. Moist/Needles Neck: Supple, Trachea Midline Lungs: Normal Respiratory Effort, Decreased Breath Sounds. No: Crackles, Rhonchi, Wheezing Cardiovascular: Regular Rate, Regular Rhythm, No Murmurs GI/Abdominal Exam: Normal Bowel Sounds, Soft, Non-Tender, No Distention (Male) Exam: Deferred Back Exam: Normal Inspection, Full Range of Motion Extremities: Normal Inspection, Normal Range of Motion, Non-Tender, No Pedal Edema, Normal Capillary Refill Peripheral Pulses: 2+: Dorsalis Pedis (L), Dorsalis Pedis (R) Skin: Warm, Dry, Intact Neurological: No New Focal Deficit, Normal Speech Psy/Mental Status: Alert, Normal Affect, Normal Mood - Patient Data Lab Results Last 24 hrs: Laboratory Results - last 24 hr 08/10/21 08/10/21 08/10/21 Range/Units 07:25 07:25 07:25 WBC 17.37 H (5.00-10.00) 10^3/uL RBC 3.83 L (4.50-6.00) 10^6/uL Hgb 11.6 L (13.0-17.0) g/dL Hct 35.9 L (40.0-52.0) % MCV 93.7 H (82.0-92.0) fL MCH 30.3 (27.0-31.0) pg MCHC 32.3 (32.0-36.0) g/dL RDW 16.2 H (11.5-14.5) % Plt Count 290 (150-400) 10^3/uL MPV 10.2 (7.4-10.4) fL Immature Gran % (Auto) 2.4 (0.0-5.0) % Neut % (Auto) 89.6 H (50.0-70.0) % Lymph % (Auto) 4.4 L (20.0-40.0) % Benton % (Auto) 3.5 (2.0-8.0) % Eos % (Auto) 0.0 L (1.0-3.0) % Baso % (Auto) 0.1 (0.0-1.0) % Neut # (Auto) 15.57 H (2.50-7.00) 10^3/uL Lymph # (Auto) 0.76 L (1.00-4.00) 10^3/uL Benton # (Auto) 0.61 (0.10-0.80) 10^3/uL Eos # (Auto) 0.00 L (0.10-0.30) 10^3/uL Baso # (Auto) 0.01 (0.00-0.10) 10^3/uL Immature Gran # (Auto) 0.42 (0.00-0.50) 10^3/uL Sodium 139 (138-146) mmol/L Potassium 3.6 (3.5-4.5) mmol/L Chloride 111 H (98-107) mmol/L Carbon Dioxide 17.3 L (21.0-32.0) mmol/L Anion Gap 14.3 (5-15) mmol/L BUN 49 H (7-18) mg/dL Creatinine 1.25 H (0.51-1.17) mg/dL Est Cr Clr Drug Dosing 56.78 mL/min Estimated GFR (MDRD) 57 mL/min Glucose 206 H (70-140) mg/dL Lactic Acid (0.4-2.0) mmol/L Calcium 8.8 (8.7-10.3) mg/dL Phosphorus 2.3 L (2.6-4.7) mg/dL Magnesium 2.2 (1.8-2.4) mg/dL Total Bilirubin 0.3 0.3 (0.2-1.0) mg/dL Direct Bilirubin 0.1 (0.0-0.2) mg/dL Indirect Bilirubin 0.2 mg/dL AST 55 H 50 H (15-37) U/L ALT 67 H 65 H (14-63) U/L Alkaline Phosphatase 96 93 (46-116) U/L Total Protein 7.0 6.9 (6.4-8.2) g/dL Albumin 1.97 L 1.95 L (3.40-5.00) g/dL Globulin 5.03 Albumin/Globulin Ratio 0.39 08/10/21 Range/Units 07:25 WBC (5.00-10.00) 10^3/uL RBC (4.50-6.00) 10^6/uL Hgb (13.0-17.0) g/dL Hct (40.0-52.0) % MCV (82.0-92.0) fL MCH (27.0-31.0) pg MCHC (32.0-36.0) g/dL RDW (11.5-14.5) % Plt Count (150-400) 10^3/uL MPV (7.4-10.4) fL Immature Gran % (Auto) (0.0-5.0) % Neut % (Auto) (50.0-70.0) % Lymph % (Auto) (20.0-40.0) % Benton % (Auto) (2.0-8.0) % Eos % (Auto) (1.0-3.0) % Baso % (Auto) (0.0-1.0) % Neut # (Auto) (2.50-7.00) 10^3/uL Lymph # (Auto) (1.00-4.00) 10^3/uL Benton # (Auto) (0.10-0.80) 10^3/uL Eos # (Auto) (0.10-0.30) 10^3/uL Baso # (Auto) (0.00-0.10) 10^3/uL Immature Gran # (Auto) (0.00-0.50) 10^3/uL Sodium (138-146) mmol/L Potassium (3.5-4.5) mmol/L Chloride (98-107) mmol/L Carbon Dioxide (21.0-32.0) mmol/L Anion Gap (5-15) mmol/L BUN (7-18) mg/dL Creatinine (0.51-1.17) mg/dL Est Cr Clr Drug Dosing mL/min Estimated GFR (MDRD) mL/min Glucose (70-140) mg/dL Lactic Acid 1.9 (0.4-2.0) mmol/L Calcium (8.7-10.3) mg/dL Phosphorus (2.6-4.7) mg/dL Magnesium (1.8-2.4) mg/dL Total Bilirubin (0.2-1.0) mg/dL Direct Bilirubin (0.0-0.2) mg/dL Indirect Bilirubin mg/dL AST (15-37) U/L ALT (14-63) U/L Alkaline Phosphatase (46-116) U/L Total Protein (6.4-8.2) g/dL Albumin (3.40-5.00) g/dL Globulin Albumin/Globulin Ratio Result Diagrams: 08/10/21 07:25 08/10/21 07:25 Da Results Last 24 hrs: Microbiology 08/10/21 11:00 Gram Stain - Final Blood - Arm, Right 08/08/21 20:30 Aerobic Blood Culture - Preliminary Blood - Venous - Lab Draw NO GROWTH AFTER 1 DAY Anaerobic Blood Culture - Preliminary Sepsis Event Note - Evaluation Sepsis Screening Result: Sepsis Risk - Focused Exam Vital Signs: Vital Signs Temp Temp Temp Pulse Resp BP Pulse Ox 08/10/21 10:45 95.5 F L 84 24 H 95 08/10/21 10:30 88 108/60 08/10/21 10:16 79 110/54 L 08/10/21 08:31 97.3 F 93 24 H 119/76 94 L 08/10/21 06:01 98.1 F 84 24 H 151/80 H 97 08/10/21 03:00 96.3 F L 77 24 H 138/69 96 - Problem List Review Problem List Initiated/Reviewed/Updated: Yes - My Orders Last 24 Hours: My Active Orders 08/09/21 12:27 Dietary Supplements [RC] WITHMEALSANDBED 08/09/21 14:30 Ascorbic Acid [Vitamin C] 1,000 mg PO BID Cholecalciferol (Vitamin D3) [Vitamin D3] 25 mcg PO DAILY Zinc Gluconate [Zinc] 200 mg PO DAILY 08/10/21 07:25 CRP, HIGH SENSITIVITY [REF] Routine 08/10/21 09:45 Nystatin [Nystop] 1 gm TOP BID Remdesivir 100 mg Sodium Chloride 0.9% [Normal Saline] 250 ml IV Q24H 08/10/21 11:05 Incentive Spirometry [RT Incentive Spirometry] [RC] Q1HWA 08/10/21 12:00 Levofloxacin/Dextrose 5%-Water [Levaquin in D5W 250 MG/50 ML] 250 mg Premix Bag 1 bag IV Q24H Phosphorus #1 [Neutra-Phos] 250 mg PO BID 08/10/21 13:00 Levofloxacin/Dextrose 5%-Water [Levaquin in D5W 500 MG/100 ML] 500 mg Premix Bag 1 bag IV Q24H 08/11/21 05:11 CBC WITH AUTO DIFF [HEME] AM CMP [COMPREHENSIVE METABOLIC PN,CMP] [CHEM] AM CRP [C-REACTIVE PROTEIN] [CHEM] AM MG [MAGNESIUM] [CHEM] AM PHOSPHORUS [CHEM] AM 08/11/21 10:00 HEPATIC FUNCTION PANEL,HFP [CHEM] DAILY 08/12/21 10:00 HEPATIC FUNCTION PANEL,HFP [CHEM] DAILY 08/13/21 10:00 HEPATIC FUNCTION PANEL,HFP [CHEM] DAILY - Plan Plan:: HPI summary: Marquis is a 71 yM patient who notified the [facility] clinic of possible COVID symtoms on 08/05/21. COVID test was [id number]. Patient had reported onset of symptoms initially on 07/26/21 with worsening of symptoms on 07/29 with onset of cough. Patient met the criteria for monoclonal antibodies given chronic conditions and age and was agreeable to receive this treatment. Patient received the BAM infusion the evening of 08/05/21 at [facility]. [place] home monitoring was also started via [facility] for symptom monitoring. O2 sat at home 87-88% per patient. Reports fever and chills. Patient states he started to feel worse yesterday and today with decreased appetite and fluid intake, fatigue, intermittent mild lightheadedness, cough and shortness of breath which increased this afternoon and this scared him prompting him to call his son to take him to the ER for evaluation. ED course: Patient tachycardic and hypotensive in ER. NS bolus in ER, followed by 150ml/hr. CXR suggestive of pneumonia with linear opacities. Troponin negative 42.800. WBC 17.59, neutrophils 91%, Hgb 12.7, Plt 243. Na 129, K 3.3, CO2 16.5, BUN 69, Banking Manager 2.25, GFR 29, AST 60. INR 1.0, PTT 39.1. CK 504. Mg 2.3. Troponin negative. EKG indicated sinus tach, otherwise normal. Hospital course: 08/08/21: Patient admitted to inpatient status tonight. Patient reports cough, shortness of breath. Denies CP, nausea, sweating. Reports decreased fluid intake and fatigue for the past few days. HR slightly tachycardic, improved from prior. Normotensive upon admission. Low grade temp 99. No indication of respiratory distress, patient conversational. Patient alert, oriented. Lung sounds dim with crackles, rhonchi to bases. Repeat labs ordered for am as below; additional labs of BNP, Mg, Phos. No known CHF - patient had an echo in 2014 with normal EF, no diastolic dysfunction at that time. 08/09/21: No calls overnight. Patient states he feels a little better today, he sat on the edge of the bed for breakfast after decreased appetite recently. Breathing improved, reports less SOB, non-productive cough. Lung sounds improved today, crackles to R mid-lung and base. Hemodynamically stable, afebrile. Renal indices improving though remain elevated; mild hypokalemia - PO supplementation today. BNP 169, last echo normal (2014). ABG's per Dr Ventura with normal pH 7.40. UA indicates moderate bacteria and WBC 5-10k, urine culture pending. Repeat labs in am CBC, CMP, CRP, Mg, Phos, LA. 08/10/21: Patient feeling better everyday, sitting up in recliner today. Continues to have cough, shortness of breath, fatigue and weakness though this is improving. Vitals stable, continues on supplemental oxygen now on NC at 4L. WBC 17.31, Na 139, K 3.6, Mg 2.2, Phos 2.3. BUN 49, Creatinine 1.25, CrCl improving. Slight elevation of LFT's, monitoring while on remdesevir; AST 50, ALT 65. BC result received and +ve 1/2 for gm -ve coccobacilli. Changed levaquin dosing to 750mg IV daily given improvement in renal indices. Incentive spirometer to 2000ml. Started nystatin powder for groin irritation. Last BM prior to admission on 08/08/21, patient denies need for laxatives at this time. Repeat labs in am CBC, CMP, CRP, Mg, Phos, CK. Hospitalization problems and plan: # COVID-19 infection # Acute hypoxic respiratory failure # Elevated D-dimer 3220 - unable to obtain CTA Chest to R/O PE due to ROBB, will start lovenox at therapeutic dosing 110mg subq BID # Elevated CK 504 -HOLD statin # Elevated CRP > 11.0 # Elevated PTT (mild) 39.7 - Continue Dexamethasone 6mg IV (total of 10 day course IV/PO) - Continue Lovenox 1mg/kg BID ~ 110mg subq BID - Continue remedesevir 100mg IV daily for up to 4 doses - Repeat CRP, CK Tuesday # Pneumonia - Patchy areas of linear opacification to bilateral bases R>L on CXR suggestive of developing pneumonia per radiology # Sepsis # Leukocytosis with neutrophilia - WBC 17.31 - suggestive of bacterial etiology # Acute hypoxia - O2 sat 96 on 6L NC; maintain O2 sat > 90%. Decreased to 4L NC and maintaining. # lactic acidosis - initial result 2.6 afternoon - Repeat lactic acid, normal, 1.9 - Continue levaquin 750mg IV, changed to daily dosing today (10 day course) - BC x 2 pending - /2 indicate possible gm -ve organism: Final report indicates gm -ve coccobacilli - Repeat CBC in am # ROBB - improving. BUN 49, Creatinine 1.25, GFR 57. # Dehydration - improving. # Tachycardia; resolved. # Hypokalemia, normal following PO supplementation yesterday. - Cardiac monitoring - Continue NS @ 125ml/hr, will decrease slightly given improving renal indices - Monitor I&O - Repeat CMP in am Hypophosphatemia; 2.3 - Neutraphos BID - Repeat Phos in am # Hypoalbuminemia; Albumin 1.95 - Continue protein dietary supplementation Chronic, stable conditions: # HTN - takes metoprolol 100mg in am, 50mg at HS, lisinopril 20mg PO daily, HCTZ 12.5mg PO daily (continue to hold anti-hypertensives) # HLD - takes lipitor 40mg PO daily - HOLD STATIN CK 504 # Hypothyroidism - continue levothyroxine 137mcg PO daily; TSH 2.28 (04/21/21) # Diabetes mellitus, TII - hold metformin due to ROBB. Last A1C 7.1%. Consider r estarting due to improved renal function. # GERD - continue prilosec 20mg PO daily # Gout - allopurinol 400mg PO daily (HOLD) # Obesity Hospitalization details: # FEN: NS 125ml/hr, K 3.4, ADA diet # PPX: lovenox 1mg/kg subq BID ~ 110mg, prilosec 20mg PO daily # Code status: FULL CODE - Discussed code status, patient wishes to be intubated if respiratory status deteriorates # Emergency contact: DaughterRosa [phone] # Disposition: Patient continues to meet inpatient criteria for IV hydration, anti-virals, antibiotics and oxygen therapy. Discharge planning to be based on clinical course. Anticipate a few more days as inpatient for ongoing cares.
[2021-08-11] MEDS: Sodium Chloride 0.9% 1,000 ML IV SCH (04:44)
[2021-08-11] MEDS: Pantoprazole 40 MG Tab.CR PO SCH (09:18)
[2021-08-11] MEDS: Cholecalciferol (Vitamin D3) 25 MCG Tab PO SCH (09:18)
[2021-08-11] MEDS: Zinc (Zinc Gluconate) 50 MG Tab PO SCH (09:19)
[2021-08-11] MEDS: Phosphorus #1 250 MG Tab PO SCH ×2 (09:19→20:33)
[2021-08-11] MEDS: Levothyroxine 112 MCG Tab PO SCH (09:20)
[2021-08-11] MEDS: Aspirin 81 MG Tab.Chew PO SCH (09:20)
[2021-08-11] MEDS: Levothyroxine 25 MCG Tab PO SCH (09:20)
[2021-08-11] MEDS: Dexamethasone 10 MG/ML SDV IVPUSH SCH (09:21)
[2021-08-11] MEDS: Ascorbic Acid 500 MG Tab PO SCH ×2 (09:21→20:32)
[2021-08-11] MEDS: Enoxaparin 150 MG/1 ML Syringe SUBCUT SCH ×2 (09:24→20:32)
[2021-08-11] MEDS: REMDESIVIR 100 MG in Sodium Chloride 0.9% 250 ML IV SCH (09:25)
[2021-08-11] MEDS: Nystatin Topical Powder 15 GM Bottle TOP SCH ×2 (09:28→20:33)
[2021-08-11 10:07] LABS: ANION GAP 14.1 mmol/L (5-15); CHLORIDE,CL 107 mmol/L (98-107); SODIUM,NA 138 mmol/L (136-145)
[2021-08-11] MEDS ORDERED: Sodium Chloride 0.9% 1,000 ML IV SCH (12:15)
--- NOTE | 2021-08-11 12:18 | PCM.PN ---
- General Info Date of Service: 08/11/21 Functional Status: Reports: Pain Controlled, Tolerating Diet, Ambulating, Urinating, Incentive Spirometry (2250ml). Denies: New Symptoms - Review of Systems General: Reports: Weakness (improving), Fatigue (improving) HEENT: Reports: No Symptoms Pulmonary: Reports: Shortness of Breath (improving) Cardiovascular: Reports: No Symptoms. Denies: Chest Pain, Palpitations Gastrointestinal: Reports: No Symptoms. Denies: Abdominal Pain, Diarrhea Genitourinary: Reports: No Symptoms Musculoskeletal: Reports: No Symptoms Skin: Reports: No Symptoms Neurological: Reports: No Symptoms Psychiatric: Reports: No Symptoms - Patient Data Vitals - Most Recent: Last Vital Signs Temp 96.6 F L 08/11/21 10:50 Pulse 70 08/11/21 10:50 Resp 18 08/11/21 10:50 BP 138/67 08/11/21 10:50 Pulse Ox 97 08/11/21 10:50 Weight - Most Recent: 258 lb 4.8 oz I&O - Last 24 Hours: Intake & Output 08/10/21 08/11/21 08/11/21 22:59 06:59 14:59 Intake Total 2511 1771 280 Output Total 750 550 Balance 1761 1221 280 Lab Results Last 24 Hours: Laboratory Results - last 24 hr 08/08/21 08/08/21 08/10/21 Range/Units 08:00 08:00 07:25 WBC (5.00-10.00) 10^3/uL RBC (4.50-6.00) 10^6/uL Hgb (13.0-17.0) g/dL Hct (40.0-52.0) % MCV (82.0-92.0) fL MCH (27.0-31.0) pg MCHC (32.0-36.0) g/dL RDW (11.5-14.5) % Plt Count (150-400) 10^3/uL MPV (7.4-10.4) fL Add Manual Diff Neutrophils % (Manual) (50-70) % Band Neutrophils % (4-12) % Lymphocytes % (Manual) (20-40) % Monocytes % (Manual) (2-8) % Platelet Estimate Sodium (136-145) mmol/L Potassium (3.5-5.1) mmol/L Chloride (98-107) mmol/L Carbon Dioxide (21.0-32.0) mmol/L Anion Gap (5-15) mmol/L BUN (7-18) mg/dL Creatinine (0.51-1.17) mg/dL Est Cr Clr Drug Dosing mL/min Estimated GFR (MDRD) mL/min Glucose (70-140) mg/dL Calcium (8.7-10.3) mg/dL Phosphorus (2.6-4.7) mg/dL Magnesium (1.8-2.4) mg/dL Total Bilirubin (0.2-1.0) mg/dL Direct Bilirubin (0.0-0.2) mg/dL AST (15-37) U/L ALT (14-63) U/L Alkaline Phosphatase (46-116) U/L Lactate Dehydrogenase 291 H (84-212) U/L Creatine Kinase (26-276) U/L C-Reactive Protein (0.0-0.9) mg/dL C-React Prot High Sens 147.97 mg/L Total Protein (6.4-8.2) g/dL Albumin (3.40-5.00) g/dL Procalcitonin 7.81 H ng/mL 08/11/21 08/11/21 Range/Units 07:10 07:15 WBC 14.32 H (5.00-10.00) 10^3/uL RBC 3.57 L (4.50-6.00) 10^6/uL Hgb 10.9 L (13.0-17.0) g/dL Hct 33.8 L (40.0-52.0) % MCV 94.7 H (82.0-92.0) fL MCH 30.5 (27.0-31.0) pg MCHC 32.2 (32.0-36.0) g/dL RDW 16.6 H (11.5-14.5) % Plt Count 331 (150-400) 10^3/uL MPV 10.7 H (7.4-10.4) fL Add Manual Diff Yes Neutrophils % (Manual) 91 H (50-70) % Band Neutrophils % 1 L (4-12) % Lymphocytes % (Manual) 6 L (20-40) % Monocytes % (Manual) 2 (2-8) % Platelet Estimate Increased Sodium 138 (136-145) mmol/L Potassium 4.2 (3.5-5.1) mmol/L Chloride 107 (98-107) mmol/L Carbon Dioxide 21.1 (21.0-32.0) mmol/L Anion Gap 14.1 (5-15) mmol/L BUN 40 H (7-18) mg/dL Creatinine 1.12 (0.51-1.17) mg/dL Est Cr Clr Drug Dosing 63.37 mL/min Estimated GFR (MDRD) > 60 mL/min Glucose 267 H (70-140) mg/dL Calcium 8.8 (8.7-10.3) mg/dL Phosphorus 3.3 (2.6-4.7) mg/dL Magnesium 1.6 L (1.8-2.4) mg/dL Total Bilirubin 0.3 (0.2-1.0) mg/dL Direct Bilirubin 0.1 (0.0-0.2) mg/dL AST 31 (15-37) U/L ALT 57 (14-63) U/L Alkaline Phosphatase 90 (46-116) U/L Lactate Dehydrogenase (84-212) U/L Creatine Kinase 74 (26-276) U/L C-Reactive Protein 7.3 H (0.0-0.9) mg/dL C-React Prot High Sens mg/L Total Protein 6.6 (6.4-8.2) g/dL Albumin 1.93 L (3.40-5.00) g/dL Procalcitonin ng/mL Da Results Last 24 Hours: Microbiology 08/09/21 00:45 Urine Culture - Final Urine, Midstream NO GROWTH AFTER 2 DAYS 08/08/21 20:37 Blood Culture Identification Panel - Preliminary Blood - Arm, Right Gram Positive Cocci 08/08/21 20:30 Aerobic Blood Culture - Preliminary Blood - Venous - Lab Draw NO GROWTH AFTER 2 DAYS Anaerobic Blood Culture - Preliminary 08/10/21 11:00 Gram Stain - Final Blood - Arm, Right Med Orders - Current: Current Medications Acetaminophen (Acetaminophen 325 Mg Tab) 650 mg PO Q4H PRN PRN Reason: Pain (Mild 1-3)/fever Ascorbic Acid (Ascorbic Acid 500 Mg Tab) 1,000 mg PO BID [facility] Last Admin: 08/11/21 09:21 Dose: 1,000 mg Documented by: Aspirin (Aspirin 81 Mg Tab.Chew) 81 mg PO DAILY [facility] Last Admin: 08/11/21 09:20 Dose: 81 mg Documented by: Cholecalciferol (Cholecalciferol (Vitamin D3) 25 Mcg Tab) 25 mcg PO DAILY [facility] Last Admin: 08/11/21 09:18 Dose: 25 mcg Documented by: Dexamethasone (Dexamethasone 10 Mg/Ml Sdv) 6 mg IVPUSH DAILY [facility] Last Admin: 08/11/21 09:21 Dose: 6 mg Documented by: Enoxaparin Sodium (Enoxaparin 150 Mg/1 Ml Syringe) 110 mg SUBCUT Q12H [facility] Last Admin: 08/11/21 09:24 Dose: 110 mg Documented by: Remdesivir 100 mg/ Sodium (Chloride) 250 mls @ 250 mls/hr IV Q24H [facility] Last Admin: 08/11/21 09:25 Dose: 250 mls/hr Documented by: Levofloxacin/Dextrose 500 mg/ (Premix) 100 mls @ 100 mls/hr IV Q24H [facility] Last Admin: 08/10/21 12:16 Dose: 100 mls/hr Documented by: Levofloxacin/Dextrose 250 mg/ (Premix) 50 mls @ 50 mls/hr IV Q24H [facility] Vancomycin HCl 1.25 gm/ Sodium (Chloride) 250 mls @ 125 mls/hr IV Q12H [facility] Last Admin: 08/11/21 10:49 Dose: 125 mls/hr Documented by: Sodium Chloride (Normal Saline) 1,000 mls @ 75 mls/hr IV ASDIRECTED [facility] Levothyroxine Sodium (Levothyroxine 112 Mcg Tab) 112 mcg PO DAILY [facility] Last Admin: 08/11/21 09:20 Dose: 112 mcg Documented by: Levothyroxine Sodium (Levothyroxine 25 Mcg Tab) 25 mcg PO DAILY [facility] Last Admin: 08/11/21 09:20 Dose: 25 mcg Documented by: Magnesium Oxide (Magnesium Oxide 500 Mg Tab) 500 mg PO DAILY [facility] Metformin HCl (Metformin 500 Mg Tab.Er) 1,000 mg PO DAILY [facility] Nystatin (Nystatin Topical Powder 15 Gm Bottle) 1 gm TOP BID [facility] Last Admin: 08/11/21 09:28 Dose: Not Given Documented by: Pantoprazole Sodium (Pantoprazole 40 Mg Tab.Cr) 40 mg PO DAILY [facility] Last Admin: 08/11/21 09:18 Dose: 40 mg Documented by: Sodium Phosphate (Phosphorus #1 250 Mg Tab) 250 mg PO BID [facility] Last Admin: 08/11/21 09:19 Dose: 250 mg Documented by: Vancomycin HCl (Pharmacy To Dose - Vancomycin) 1 dose .XX ASDIRECTED [facility] Zinc Gluconate (Zinc (Zinc Gluconate) 50 Mg Tab) 200 mg PO DAILY [facility] Stop: 08/13/21 14:30 Last Admin: 08/11/21 09:19 Dose: 200 mg Documented by: Discontinued Medications Sodium Chloride (Normal Saline) 1,000 mls @ 999 mls/hr IV .BOLUS ONE Stop: 08/08/21 18:00 Last Admin: 08/08/21 17:00 Dose: 999 mls/hr Documented by: Sodium Chloride (Normal Saline) 1,000 mls @ 150 mls/hr IV .BOLUS ONE Stop: 08/09/21 00:46 Last Admin: 08/08/21 18:07 Dose: 150 mls/hr Documented by: Sodium Chloride (Normal Saline) 1,000 mls @ 150 mls/hr IV ASDIRECTED [facility] Last Admin: 08/10/21 10:15 Dose: 150 mls/hr Documented by: Levofloxacin/Dextrose 250 mg/ (Premix) 50 mls @ 50 mls/hr IV Q48H [facility] Last Admin: 08/08/21 22:22 Dose: 50 mls/hr Documented by: Levofloxacin/Dextrose 500 mg/ (Premix) 100 mls @ 100 mls/hr IV Q24H [facility] Last Admin: 08/09/21 00:17 Dose: Not Given Documented by: Levofloxacin/Dextrose 500 mg/ (Premix) 100 mls @ 100 mls/hr IV Q48H [facility] Last Admin: 08/08/21 22:56 Dose: 100 mls/hr Documented by: Remdesivir 200 mg/ Sodium (Chloride) 250 mls @ 250 mls/hr IV ONETIME ONE Stop: 08/09/21 09:55 Last Admin: 08/09/21 11:15 Dose: 250 mls/hr Documented by: Levofloxacin/Dextrose 250 mg/ (Premix) 50 mls @ 50 mls/hr IV Q24H [facility] Last Admin: 08/10/21 13:21 Dose: 50 mls/hr Documented by: Sodium Chloride (Normal Saline) 1,000 mls @ 125 mls/hr IV ASDIRECTED [facility] Last Admin: 08/11/21 04:44 Dose: 125 mls/hr Documented by: Vancomycin HCl 1.25 gm/ Sodium (Chloride) 250 mls @ 125 mls/hr IV Q12H [facility] Vancomycin HCl 1.25 gm/ Sodium (Chloride) 250 mls @ 125 mls/hr IV Q12H [facility] Potassium Chloride (Potassium Chloride 20 Meq Tab.Er) 40 meq PO ONETIME ONE Stop: 08/09/21 09:54 Last Admin: 08/09/21 11:26 Dose: 40 meq Documented by: - Exam Quality Assessment: Supplemental Oxygen, DVT Prophylaxis. No: Urine Catheter General: Alert, Oriented, Cooperative, No Acute Distress HEENT: Pupils Equal, Mucous Membr. Moist/[place] Neck: Supple, Trachea Midline Lungs: Decreased Breath Sounds, Crackles (fine to bilateral bases, improved) Cardiovascular: Regular Rate, Regular Rhythm, No Murmurs GI/Abdominal Exam: Normal Bowel Sounds, Soft, Non-Tender, No Distention (Male) Exam: Deferred Back Exam: Normal Inspection, Full Range of Motion Extremities: Normal Inspection, Normal Range of Motion, Non-Tender, No Pedal [place], Normal Capillary Refill Peripheral Pulses: 2+: Dorsalis Pedis (L), Dorsalis Pedis (R) Skin: Warm, Dry, Intact Neurological: No New Focal Deficit Psy/Mental Status: Alert, Normal Affect, Normal Mood - Patient Data Lab Results Last 24 hrs: Laboratory Results - last 24 hr 08/08/21 08/08/21 08/10/21 Range/Units 08:00 08:00 07:25 WBC (5.00-10.00) 10^3/uL RBC (4.50-6.00) 10^6/uL Hgb (13.0-17.0) g/dL Hct (40.0-52.0) % MCV (82.0-92.0) fL MCH (27.0-31.0) pg MCHC (32.0-36.0) g/dL RDW (11.5-14.5) % Plt Count (150-400) 10^3/uL MPV (7.4-10.4) fL Add Manual Diff Neutrophils % (Manual) (50-70) % Band Neutrophils % (4-12) % Lymphocytes % (Manual) (20-40) % Monocytes % (Manual) (2-8) % Platelet Estimate Sodium (136-145) mmol/L Potassium (3.5-5.1) mmol/L Chloride (98-107) mmol/L Carbon Dioxide (21.0-32.0) mmol/L Anion Gap (5-15) mmol/L BUN (7-18) mg/dL Creatinine (0.51-1.17) mg/dL Est Cr Clr Drug Dosing mL/min Estimated GFR (MDRD) mL/min Glucose (70-140) mg/dL Calcium (8.7-10.3) mg/dL Phosphorus (2.6-4.7) mg/dL Magnesium (1.8-2.4) mg/dL Total Bilirubin (0.2-1.0) mg/dL Direct Bilirubin (0.0-0.2) mg/dL AST (15-37) U/L ALT (14-63) U/L Alkaline Phosphatase (46-116) U/L Lactate Dehydrogenase 291 H (84-212) U/L Creatine Kinase (26-276) U/L C-Reactive Protein (0.0-0.9) mg/dL C-React Prot High Sens 147.97 mg/L Total Protein (6.4-8.2) g/dL Albumin (3.40-5.00) g/dL Procalcitonin 7.81 H ng/mL 08/11/21 08/11/21 Range/Units 07:10 07:15 WBC 14.32 H (5.00-10.00) 10^3/uL RBC 3.57 L (4.50-6.00) 10^6/uL Hgb 10.9 L (13.0-17.0) g/dL Hct 33.8 L (40.0-52.0) % MCV 94.7 H (82.0-92.0) fL MCH 30.5 (27.0-31.0) pg MCHC 32.2 (32.0-36.0) g/dL RDW 16.6 H (11.5-14.5) % Plt Count 331 (150-400) 10^3/uL MPV 10.7 H (7.4-10.4) fL Add Manual Diff Yes Neutrophils % (Manual) 91 H (50-70) % Band Neutrophils % 1 L (4-12) % Lymphocytes % (Manual) 6 L (20-40) % Monocytes % (Manual) 2 (2-8) % Platelet Estimate Increased Sodium 138 (136-145) mmol/L Potassium 4.2 (3.5-5.1) mmol/L Chloride 107 (98-107) mmol/L Carbon Dioxide 21.1 (21.0-32.0) mmol/L Anion Gap 14.1 (5-15) mmol/L BUN 40 H (7-18) mg/dL Creatinine 1.12 (0.51-1.17) mg/dL Est Cr Clr Drug Dosing 63.37 mL/min Estimated GFR (MDRD) > 60 mL/min Glucose 267 H (70-140) mg/dL Calcium 8.8 (8.7-10.3) mg/dL Phosphorus 3.3 (2.6-4.7) mg/dL Magnesium 1.6 L (1.8-2.4) mg/dL Total Bilirubin 0.3 (0.2-1.0) mg/dL Direct Bilirubin 0.1 (0.0-0.2) mg/dL AST 31 (15-37) U/L ALT 57 (14-63) U/L Alkaline Phosphatase 90 (46-116) U/L Lactate Dehydrogenase (84-212) U/L Creatine Kinase 74 (26-276) U/L C-Reactive Protein 7.3 H (0.0-0.9) mg/dL C-React Prot High Sens mg/L Total Protein 6.6 (6.4-8.2) g/dL Albumin 1.93 L (3.40-5.00) g/dL Procalcitonin ng/mL Result Diagrams: 08/12/21 07:45 08/12/21 07:45 Da Results Last 24 hrs: Microbiology 08/09/21 00:45 Urine Culture - Final Urine, Midstream NO GROWTH AFTER 2 DAYS 08/08/21 20:37 Blood Culture Identification Panel - Preliminary Blood - Arm, Right Gram Positive Cocci 08/08/21 20:30 Aerobic Blood Culture - Preliminary Blood - Venous - Lab Draw NO GROWTH AFTER 2 DAYS Anaerobic Blood Culture - Preliminary 08/10/21 11:00 Gram Stain - Final Blood - Arm, Right Sepsis Event Note - Evaluation Sepsis Screening Result: No Definite Risk - Focused Exam Vital Signs: Vital Signs Temp Pulse Resp BP Pulse Ox Pulse Ox 08/11/21 10:50 96.6 F L 70 18 138/67 97 08/11/21 06:40 96 08/11/21 06:38 96.6 F L 79 22 H 150/81 H 96 08/11/21 02:54 96.4 F L 83 20 141/83 H 97 - Problem List Review Problem List Initiated/Reviewed/Updated: Yes - My Orders Last 24 Hours: My Active Orders 08/10/21 12:00 Phosphorus #1 [Neutra-Phos] 250 mg PO BID 08/10/21 13:00 Levofloxacin/Dextrose 5%-Water [Levaquin in D5W 500 MG/100 ML] 500 mg Premix Bag 1 bag IV Q24H 08/11/21 09:00 Pharmacy to Dose - Vancomycin 1 dose .XX ASDIRECTED 08/11/21 11:00 Vancomycin 1.25 gm Sodium Chloride 0.9% [Normal Saline] 250 ml IV Q12H 08/11/21 12:15 Magnesium Oxide 500 mg PO DAILY Sodium Chloride 0.9% @ 75 MLS/HR(1000ml) Sodium Chloride 0.9% [Normal Saline] 1,000 ml IV ASDIRECTED metFORMIN [Glucophage XR] 1,000 mg PO DAILY 08/11/21 14:00 Levofloxacin/Dextrose 5%-Water [Levaquin in D5W 250 MG/50 ML] 250 mg Premix Bag 1 bag IV Q24H 08/12/21 05:11 CBC WITH AUTO DIFF [HEME] AM CMP [COMPREHENSIVE METABOLIC PN,CMP] [CHEM] AM CRP [C-REACTIVE PROTEIN] [CHEM] AM MG [MAGNESIUM] [CHEM] AM PHOSPHORUS [CHEM] AM 08/12/21 10:00 HEPATIC FUNCTION PANEL,HFP [CHEM] DAILY 08/13/21 10:00 HEPATIC FUNCTION PANEL,HFP [CHEM] DAILY 08/13/21 10:30 VANCOMYCIN TROUGH [CHEM] Routine - Plan Plan:: HPI summary: Marquis is a 71 yM patient who notified the [facility] of possible COVID symtoms on 08/05/21. COVID test was [id number]. Patient had reported onset of symptoms initially on 07/26/21 with worsening of symptoms on 07/29 with onset of cough. Patient met the criteria for monoclonal antibodies given chronic conditions and age and was agreeable to receive this treatment. Patient received the BAM infusion the evening of 08/05/21 at [facility]. [place] home monitoring was also started via [facility] for symptom monitoring. O2 sat at home 87-88% per patient. Reports fever and chills. Patient states he started to feel worse yesterday and today with decreased appetite and fluid intake, fatigue, intermittent mild lightheadedness, cough and shortness of breath which increased this afternoon and this scared him prompting him to call his son to take him to the ER for evaluation. ED course: Patient tachycardic and hypotensive in ER. NS bolus in ER, followed by 150ml/hr. CXR suggestive of pneumonia with linear opacities. Troponin negative 42.800. WBC 17.59, neutrophils 91%, Hgb 12.7, Plt 243. Na 129, K 3.3, CO2 16.5, BUN 69, [place] 2.25, GFR 29, AST 60. INR 1.0, PTT 39.1. CK 504. Mg 2.3. Troponin negative. EKG indicated sinus tach, otherwise normal. Hospital course: 08/08/21: Patient admitted to inpatient status tonight. Patient reports cough, shortness of breath. Denies CP, nausea, sweating. Reports decreased fluid intake and fatigue for the past few days. HR slightly tachycardic, improved from prior. Normotensive upon admission. Low grade temp 99. No indication of respiratory distress, patient conversational. Patient alert, oriented. Lung sounds dim with crackles, rhonchi to bases. Repeat labs ordered for am as below; additional labs of BNP, Mg, Phos. No known CHF - patient had an echo in 2014 with normal EF, no diastolic dysfunction at that time. 08/09/21: No calls overnight. Patient states he feels a little better today, he sat on the edge of the bed for breakfast after decreased appetite recently. Breathing improved, reports less SOB, non-productive cough. Lung sounds improved today, crackles to R mid-lung and base. Hemodynamically stable, afebrile. Renal indices improving though remain elevated; mild hypokalemia - PO supplementation today. BNP 169, last echo normal (2014). ABG's per Dr Ventura with normal pH 7.40. UA indicates moderate bacteria and WBC 5-10k, urine culture pending. Repeat labs in am CBC, CMP, CRP, Mg, Phos, LA. 08/10/21: Patient feeling better everyday, sitting up in recliner today. Continues to have cough, shortness of breath, fatigue and weakness though this is improving. Vitals stable, continues on supplemental oxygen now on NC at 4L. WBC 17.31, Na 139, K 3.6, Mg 2.2, Phos 2.3. BUN 49, Creatinine 1.25, CrCl improving. Slight elevation of LFT's, monitoring while on remdesevir; AST 50, ALT 65. BC result received and +ve 1/2 for gm -ve coccobacilli. Changed levaquin dosing to 750mg IV daily given improvement in renal indices. Incentive spirometer to 2000ml. Started nystatin powder for groin irritation. Last BM prior to admission on 08/08/21, patient denies need for laxatives at this time. Repeat labs in am CBC, CMP, CRP, Mg, Phos, CK. 08/11/21: Patient reports appetite improving slowly. He continues to feel SOB, oxygen requirements decreased and IS to 2250ml. Occasional cough, no fevers, chills. Lung sounds with rhonchi bilaterally, exam otherwise unremarkable. Patient continuing to improve daily. Vitals stable. BC 1/2 +ve for gm + cocci, patient started on vancomycin to cover for this in addition to levaquin. Continuing COVID treatments as prior. Repeat labs in am CBC, CMP, Mg, Phos, CRP. Hospitalization problems and plan: # COVID-19 infection # Acute hypoxic respiratory failure # Elevated D-dimer 3220 - unable to obtain CTA Chest to R/O PE due to ROBB, on l ovenox at therapeutic dosing 110mg subq BID # Elevated CK 504; repeated today and normalized at 74. # Elevated CRP > 11.0; repeated today 7.3 # Elevated PTT (mild) 39.7 on admission - Continue Dexamethasone 6mg IV (total of 10 day course IV/PO) - Continue Lovenox 1mg/kg BID ~ 110mg subq BID - Continue remedesevir 100mg IV daily for up to 4 doses - Continue adjunct treatments of vitamin C, vitamin D and zinc # Pneumonia - Patchy areas of linear opacification to bilateral bases R>L on CXR suggestive of developing pneumonia per radiology # Sepsis; resolved. # Leukocytosis with neutrophilia - WBC 17.31 - suggestive of bacterial etiology # Acute hypoxia - O2 sat 96 on 6L NC; maintain O2 sat > 90%. Decreased to 3L NC, 96%. # lactic acidosis - resolved. - Continue levaquin 750mg IV, changed to daily dosing today (10 day course) - BC x 2 pending - 11/15 indicate possible gm -ve organism: Final report indicates gm -ve coccobacilli - started vancomycin today to cover for gm + co cci. - Repeat CBC in am # ROBB - improving. BUN 40, Creatinine 1.12. # Dehydration - improving. # Tachycardia; resolved. # Hypokalemia, normal following PO supplementation yesterday. - Cardiac monitoring - Decreased NS @ 75ml/hr, will decrease slightly given improving renal indices - Monitor I&O - Repeat CMP in am # Hypophosphatemia; 3.3 - Neutraphos BID - Repeat Phos in am # Hypomagnesemia, 1.6 today - magnesium oxide 500mg PO daily # Hypoalbuminemia; Albumin 1.95 - Continue protein dietary supplementation Chronic, stable conditions: # HTN - takes metoprolol 100mg in am, 50mg at HS, lisinopril 20mg PO daily, HCTZ 12.5mg PO daily (continue to hold anti-hypertensives). # HLD - takes lipitor 40mg PO daily - HOLD STATIN CK 504 # Hypothyroidism - continue levothyroxine 137mcg PO daily; TSH 2.28 (04/21/21) # Diabetes mellitus, TII - Last A1C 7.1%. Restart metformin as renal indices significantly improved. # GERD - continue prilosec 20mg PO daily # Gout - allopurinol 400mg PO daily (HOLD) Consider restarting. # Obesity Hospitalization details: # FEN: NS 75ml/hr, Mg 1.6 - PO supplementation, ADA diet # PPX: lovenox 1mg/kg subq BID ~ 110mg, prilosec 20mg PO daily # Code status: FULL CODE - Discussed code status, patient wishes to be intubated if respiratory status deteriorates # Emergency contact: DaughterRosa [phone]. Contacted patient's son, Joey per request ([phone]) and updated as to status. # Disposition: Patient continues to meet inpatient criteria for IV hydration, IV anti-virals, antibiotics and oxygen therapy. Discharge planning to be based on clinical course. Anticipate a few more days as inpatient for ongoing cares of hospital problems.
[2021-08-11] MEDS: metFORMIN 500 MG Tab.ER PO SCH (13:07)
[2021-08-11] MEDS: Magnesium Oxide 500 MG Tab PO SCH (13:07)
[2021-08-11] MEDS: Levofloxacin/Dextrose 5%-Water 500 MG in Premix Bag 1 BAG IV SCH (13:09)
[2021-08-11] MEDS: Levofloxacin/Dextrose 5%-Water 250 MG in Premix Bag 1 BAG IV SCH (14:36)
[2021-08-12] MEDS: Dexamethasone 10 MG/ML SDV IVPUSH SCH (08:12)
[2021-08-12] MEDS: Ascorbic Acid 500 MG Tab PO SCH ×2 (08:13→20:47)
[2021-08-12] MEDS: Zinc (Zinc Gluconate) 50 MG Tab PO SCH (08:13)
[2021-08-12] MEDS: metFORMIN 500 MG Tab.ER PO SCH (08:13)
[2021-08-12] MEDS: Cholecalciferol (Vitamin D3) 25 MCG Tab PO SCH (08:13)
[2021-08-12] MEDS: Enoxaparin 150 MG/1 ML Syringe SUBCUT SCH ×2 (08:13→20:48)
[2021-08-12] MEDS: Aspirin 81 MG Tab.Chew PO SCH (08:13)
[2021-08-12] MEDS: Magnesium Oxide 500 MG Tab PO SCH (08:14)
[2021-08-12] MEDS: Levothyroxine 112 MCG Tab PO SCH (08:14)
[2021-08-12] MEDS: Pantoprazole 40 MG Tab.CR PO SCH (08:14)
[2021-08-12] MEDS: Levothyroxine 25 MCG Tab PO SCH (08:14)
[2021-08-12] MEDS: Phosphorus #1 250 MG Tab PO SCH ×2 (08:14→20:48)
[2021-08-12] MEDS: Nystatin Topical Powder 15 GM Bottle TOP SCH ×2 (08:15→20:49)
[2021-08-12 08:34] LABS: ANION GAP 14.6 mmol/L (5-15); CHLORIDE,CL 108 mmol/L (98-107); SODIUM,NA 139 mmol/L (136-145)
[2021-08-12] MEDS: REMDESIVIR 100 MG in Sodium Chloride 0.9% 250 ML IV SCH (09:17)
[2021-08-12] MEDS ORDERED: Sodium Chloride 0.9% 1,000 ML IV SCH (10:15)
--- NOTE | 2021-08-12 12:02 | PCM.PN ---
- General Info Date of Service: 08/12/21 Functional Status: Reports: Pain Controlled, Tolerating Diet, Ambulating, Urinating, Incentive Spirometry (2250-2500ml). Denies: New Symptoms - Review of Systems General: Reports: No Symptoms HEENT: Reports: No Symptoms Pulmonary: Reports: Shortness of Breath, Cough Cardiovascular: Reports: No Symptoms Gastrointestinal: Reports: Decreased Appetite, Diarrhea (none today, reports a few looser stools yesterday). Denies: Nausea Genitourinary: Reports: No Symptoms Musculoskeletal: Reports: No Symptoms Skin: Reports: No Symptoms Neurological: Reports: No Symptoms Psychiatric: Reports: No Symptoms - Patient Data Vitals - Most Recent: Last Vital Signs Temp 96.5 F L 08/12/21 05:26 Pulse 79 08/12/21 05:26 Resp 20 08/12/21 05:26 BP 136/79 08/12/21 05:26 Pulse Ox 94 L 08/12/21 11:01 Weight - Most Recent: 258 lb 4.8 oz I&O - Last 24 Hours: Intake & Output 08/11/21 08/12/21 08/12/21 22:59 06:59 14:59 Intake Total 1299 1037 Output Total 700 550 Balance 599 487 Lab Results Last 24 Hours: Laboratory Results - last 24 hr 08/12/21 08/12/21 08/12/21 Range/Units 07:45 07:45 07:45 WBC 12.12 H (5.00-10.00) 10^3/uL RBC 3.60 L (4.50-6.00) 10^6/uL Hgb 10.8 L (13.0-17.0) g/dL Hct 33.7 L (40.0-52.0) % MCV 93.6 H (82.0-92.0) fL MCH 30.0 (27.0-31.0) pg MCHC 32.0 (32.0-36.0) g/dL RDW 16.8 H (11.5-14.5) % Plt Count 354 (150-400) 10^3/uL MPV 10.2 (7.4-10.4) fL Add Manual Diff Yes Neutrophils % (Manual) 82 H (50-70) % Band Neutrophils % 3 L (4-12) % Lymphocytes % (Manual) 7 L (20-40) % Atypical Lymphs % 0 Monocytes % (Manual) 5 (2-8) % Eosinophils % (Manual) 0 L (1-3) % Basophils % (Manual) 0 (0-1) % Metamyelocytes % 1 Myelocytes % 2 Platelet Estimate Increased Anisocytosis 1+ slight Sodium 139 (136-145) mmol/L Potassium 4.0 (3.5-5.1) mmol/L Chloride 108 H (98-107) mmol/L Carbon Dioxide 20.4 L (21.0-32.0) mmol/L Anion Gap 14.6 (5-15) mmol/L BUN 33 H (7-18) mg/dL Creatinine 0.97 (0.51-1.17) mg/dL Est Cr Clr Drug Dosing 73.17 mL/min Estimated GFR (MDRD) > 60 mL/min Glucose 181 H (70-140) mg/dL Calcium 8.5 L (8.7-10.3) mg/dL Phosphorus 2.9 (2.6-4.7) mg/dL Magnesium 1.5 L (1.8-2.4) mg/dL Total Bilirubin 0.4 0.4 (0.2-1.0) mg/dL Direct Bilirubin 0.1 (0.0-0.2) mg/dL Indirect Bilirubin 0.3 mg/dL AST 28 20 (15-37) U/L ALT 40 47 (14-63) U/L Alkaline Phosphatase 82 77 (46-116) U/L C-Reactive Protein 3.9 H (0.0-0.9) mg/dL Total Protein 5.9 L 5.9 L (6.4-8.2) g/dL Albumin 1.88 L 1.83 L (3.40-5.00) g/dL Globulin 4.02 Albumin/Globulin Ratio 0.46 Da Results Last 24 Hours: Microbiology 08/08/21 20:30 Aerobic Blood Culture - Preliminary Blood - Venous - Lab Draw NO GROWTH AFTER 3 DAYS Anaerobic Blood Culture - Preliminary 08/08/21 20:37 Blood Culture Identification Panel - Preliminary Blood - Arm, Right Streptococcus Pneumoniae 08/09/21 00:45 Urine Culture - Final Urine, Midstream NO GROWTH AFTER 2 DAYS Med Orders - Current: Current Medications Acetaminophen (Acetaminophen 325 Mg Tab) 650 mg PO Q4H PRN PRN Reason: Pain (Mild 1-3)/fever Ascorbic Acid (Ascorbic Acid 500 Mg Tab) 1,000 mg PO BID [facility] Last Admin: 08/12/21 08:13 Dose: 1,000 mg Documented by: Aspirin (Aspirin 81 Mg Tab.Chew) 81 mg PO DAILY [facility] Last Admin: 08/12/21 08:13 Dose: 81 mg Documented by: Cholecalciferol (Cholecalciferol (Vitamin D3) 25 Mcg Tab) 25 mcg PO DAILY [facility] Last Admin: 08/12/21 08:13 Dose: 25 mcg Documented by: Dexamethasone (Dexamethasone 10 Mg/Ml Sdv) 6 mg IVPUSH DAILY [facility] Last Admin: 08/12/21 08:12 Dose: 6 mg Documented by: Enoxaparin Sodium (Enoxaparin 150 Mg/1 Ml Syringe) 110 mg SUBCUT Q12H [facility] Last Admin: 08/12/21 08:13 Dose: 110 mg Documented by: Remdesivir 100 mg/ Sodium (Chloride) 250 mls @ 250 mls/hr IV Q24H [facility] Stop: 08/13/21 11:00 Last Admin: 08/12/21 09:17 Dose: 250 mls/hr Documented by: Levofloxacin/Dextrose 500 mg/ (Premix) 100 mls @ 100 mls/hr IV Q24H [facility] Last Admin: 08/11/21 13:09 Dose: 100 mls/hr Documented by: Levofloxacin/Dextrose 250 mg/ (Premix) 50 mls @ 50 mls/hr IV Q24H [facility] Last Admin: 08/11/21 14:36 Dose: 50 mls/hr Documented by: Vancomycin HCl 1.25 gm/ Sodium (Chloride) 250 mls @ 125 mls/hr IV Q12H [facility] Last Admin: 08/12/21 10:49 Dose: 125 mls/hr Documented by: Sodium Chloride (Normal Saline) 1,000 mls @ 75 mls/hr IV ASDIRECTED [facility] Last Infusion: 08/12/21 10:52 Dose: Infused Documented by: Sodium Chloride (Normal Saline) 1,000 mls @ 50 mls/hr IV ASDIRECTED [facility] Levothyroxine Sodium (Levothyroxine 112 Mcg Tab) 112 mcg PO DAILY [facility] Last Admin: 08/12/21 08:14 Dose: 112 mcg Documented by: Levothyroxine Sodium (Levothyroxine 25 Mcg Tab) 25 mcg PO DAILY [facility] Last Admin: 08/12/21 08:14 Dose: 25 mcg Documented by: Magnesium Oxide (Magnesium Oxide 500 Mg Tab) 500 mg PO DAILY [facility] Last Admin: 08/12/21 08:14 Dose: 500 mg Documented by: Metformin HCl (Metformin 500 Mg Tab.Er) 1,000 mg PO DAILY [facility] Last Admin: 08/12/21 08:13 Dose: 1,000 mg Documented by: Nystatin (Nystatin Topical Powder 15 Gm Bottle) 1 gm TOP BID [facility] Last Admin: 08/12/21 08:15 Dose: 1 applic Documented by: Pantoprazole Sodium (Pantoprazole 40 Mg Tab.Cr) 40 mg PO DAILY [facility] Last Admin: 08/12/21 08:14 Dose: 40 mg Documented by: Sodium Phosphate (Phosphorus #1 250 Mg Tab) 250 mg PO BID [facility] Last Admin: 08/12/21 08:14 Dose: 250 mg Documented by: Vancomycin HCl (Pharmacy To Dose - Vancomycin) 1 dose .XX ASDIRECTED [facility] Zinc Gluconate (Zinc (Zinc Gluconate) 50 Mg Tab) 200 mg PO DAILY [facility] Stop: 08/13/21 14:30 Last Admin: 08/12/21 08:13 Dose: 200 mg Documented by: Discontinued Medications Sodium Chloride (Normal Saline) 1,000 mls @ 999 mls/hr IV .BOLUS ONE Stop: 08/08/21 18:00 Last Admin: 08/08/21 17:00 Dose: 999 mls/hr Documented by: Sodium Chloride (Normal Saline) 1,000 mls @ 150 mls/hr IV .BOLUS ONE Stop: 08/09/21 00:46 Last Admin: 08/08/21 18:07 Dose: 150 mls/hr Documented by: Sodium Chloride (Normal Saline) 1,000 mls @ 150 mls/hr IV ASDIRECTED [facility] Last Admin: 08/10/21 10:15 Dose: 150 mls/hr Documented by: Levofloxacin/Dextrose 250 mg/ (Premix) 50 mls @ 50 mls/hr IV Q48H [facility] Last Admin: 08/08/21 22:22 Dose: 50 mls/hr Documented by: Levofloxacin/Dextrose 500 mg/ (Premix) 100 mls @ 100 mls/hr IV Q24H [facility] Last Admin: 08/09/21 00:17 Dose: Not Given Documented by: Levofloxacin/Dextrose 500 mg/ (Premix) 100 mls @ 100 mls/hr IV Q48H [facility] Last Admin: 08/08/21 22:56 Dose: 100 mls/hr Documented by: Remdesivir 200 mg/ Sodium (Chloride) 250 mls @ 250 mls/hr IV ONETIME ONE Stop: 08/09/21 09:55 Last Admin: 08/09/21 11:15 Dose: 250 mls/hr Documented by: Levofloxacin/Dextrose 250 mg/ (Premix) 50 mls @ 50 mls/hr IV Q24H [facility] Last Admin: 08/10/21 13:21 Dose: 50 mls/hr Documented by: Sodium Chloride (Normal Saline) 1,000 mls @ 125 mls/hr IV ASDIRECTED [facility] Last Infusion: 08/11/21 14:54 Dose: Infused Documented by: Vancomycin HCl 1.25 gm/ Sodium (Chloride) 250 mls @ 125 mls/hr IV Q12H [facility] Last Admin: 08/11/21 14:54 Dose: Not Given Documented by: Vancomycin HCl 1.25 gm/ Sodium (Chloride) 250 mls @ 125 mls/hr IV Q12H [facility] Potassium Chloride (Potassium Chloride 20 Meq Tab.Er) 40 meq PO ONETIME ONE Stop: 08/09/21 09:54 Last Admin: 08/09/21 11:26 Dose: 40 meq Documented by: - Exam Quality Assessment: DVT Prophylaxis. No: Supplemental Oxygen General: Alert, Oriented, Cooperative, No Acute Distress HEENT: Pupils Equal, Mucous Membr. Moist/[place] Neck: Supple, Trachea Midline Lungs: Decreased Breath Sounds, Rhonchi (few to bilateral bases) Cardiovascular: Regular Rate, Regular Rhythm, No Murmurs GI/Abdominal Exam: Normal Bowel Sounds, Soft, Non-Tender, No Distention (Male) Exam: Deferred Back Exam: Normal Inspection, Full Range of Motion Extremities: Normal Inspection, Normal Range of Motion, Non-Tender, Normal Capillary Refill, Pedal Edema (minimal edema noted to bilateral lower extremities) Peripheral Pulses: 2+: Dorsalis Pedis (L), Dorsalis Pedis (R) Skin: Warm, Dry, Intact Neurological: No New Focal Deficit Psy/Mental Status: Alert, Normal Affect, Normal Mood - Patient Data Lab Results Last 24 hrs: Laboratory Results - last 24 hr 09/08/12/21 08/12/21 Range/Units 07:45 07:45 07:45 WBC 12.12 H (5.00-10.00) 10^3/uL RBC 3.60 L (4.50-6.00) 10^6/uL Hgb 10.8 L (13.0-17.0) g/dL Hct 33.7 L (40.0-52.0) % MCV 93.6 H (82.0-92.0) fL MCH 30.0 (27.0-31.0) pg MCHC 32.0 (32.0-36.0) g/dL RDW 16.8 H (11.5-14.5) % Plt Count 354 (150-400) 10^3/uL MPV 10.2 (7.4-10.4) fL Add Manual Diff Yes Neutrophils % (Manual) 82 H (50-70) % Band Neutrophils % 3 L (4-12) % Lymphocytes % (Manual) 7 L (20-40) % Atypical Lymphs % 0 Monocytes % (Manual) 5 (2-8) % Eosinophils % (Manual) 0 L (1-3) % Basophils % (Manual) 0 (0-1) % Metamyelocytes % 1 Myelocytes % 2 Platelet Estimate Increased Anisocytosis 1+ slight Sodium 139 (136-145) mmol/L Potassium 4.0 (3.5-5.1) mmol/L Chloride 108 H (98-107) mmol/L Carbon Dioxide 20.4 L (21.0-32.0) mmol/L Anion Gap 14.6 (5-15) mmol/L BUN 33 H (7-18) mg/dL Creatinine 0.97 (0.51-1.17) mg/dL Est Cr Clr Drug Dosing 73.17 mL/min Estimated GFR (MDRD) > 60 mL/min Glucose 181 H (70-140) mg/dL Calcium 8.5 L (8.7-10.3) mg/dL Phosphorus 2.9 (2.6-4.7) mg/dL Magnesium 1.5 L (1.8-2.4) mg/dL Total Bilirubin 0.4 0.4 (0.2-1.0) mg/dL Direct Bilirubin 0.1 (0.0-0.2) mg/dL Indirect Bilirubin 0.3 mg/dL AST 28 20 (15-37) U/L ALT 40 47 (14-63) U/L Alkaline Phosphatase 82 77 (46-116) U/L C-Reactive Protein 3.9 H (0.0-0.9) mg/dL Total Protein 5.9 L 5.9 L (6.4-8.2) g/dL Albumin 1.88 L 1.83 L (3.40-5.00) g/dL Globulin 4.02 Albumin/Globulin Ratio 0.46 Result Diagrams: 08/12/21 07:45 08/12/21 07:45 Da Results Last 24 hrs: Microbiology 08/08/21 20:30 Aerobic Blood Culture - Preliminary Blood - Venous - Lab Draw NO GROWTH AFTER 3 DAYS Anaerobic Blood Culture - Preliminary 08/08/21 20:37 Blood Culture Identification Panel - Preliminary Blood - Arm, Right Streptococcus Pneumoniae 08/09/21 00:45 Urine Culture - Final Urine, Midstream NO GROWTH AFTER 2 DAYS Sepsis Event Note - Evaluation Sepsis Screening Result: No Definite Risk - Focused Exam Vital Signs: Vital Signs Temp Pulse Pulse Resp BP Pulse Ox Pulse Ox 08/12/21 11:01 08/12/21 11:00 08/12/21 09:20 08/12/21 05:30 96 08/12/21 05:26 96.5 F L 79 20 136/79 96 08/12/21 03:00 98.5 F 79 20 156/85 H 96 Pulse Ox 08/12/21 11:01 94 L 08/12/21 11:00 94 L 08/12/21 09:20 94 L 08/12/21 05:30 08/12/21 05:26 08/12/21 03:00 - Problem List Review Problem List Initiated/Reviewed/Updated: Yes - My Orders Last 24 Hours: My Active Orders 08/11/21 12:15 Magnesium Oxide 500 mg PO DAILY Sodium Chloride 0.9% [Normal Saline] 1,000 ml IV ASDIRECTED metFORMIN [Glucophage XR] 1,000 mg PO DAILY 08/11/21 14:00 Levofloxacin/Dextrose 5%-Water [Levaquin in D5W 250 MG/50 ML] 250 mg Premix Bag 1 bag IV Q24H 08/12/21 10:05 Cardiac Monitoring Discontinue [RC] Click to Edit 08/12/21 10:15 Sodium Chloride 0.9% [Normal Saline] 1,000 ml IV ASDIRECTED 08/13/21 10:00 HEPATIC FUNCTION PANEL,HFP [CHEM] DAILY 08/13/21 10:30 VANCOMYCIN TROUGH [CHEM] Routine - Plan Plan:: HPI summary: Marquis is a 71 yM patient who notified the [facility] clinic of possible COVID symtoms on 08/05/21. COVID test was [id number]. Patient had reported onset of symptoms initially on 07/26/21 with worsening of symptoms on 07/29 with onset of cough. Patient met the criteria for monoclonal antibodies given chronic conditions and age and was agreeable to receive this treatment. Patient received the BAM infusion the evening of 08/05/21 at [facility]. [place] home monitoring was also started via [employer] for symptom monitoring. O2 sat at home 87-88% per patient. Reports fever and chills. Patient states he started to feel worse yesterday and today with decreased appetite and fluid intake, fatigue, intermittent mild lightheadedness, cough and shortness of breath which increased this afternoon and this scared him prompting him to call his son to take him to the ER for evaluation. ED course: Patient tachycardic and hypotensive in ER. NS bolus in ER, followed by 150ml/hr. CXR suggestive of pneumonia with linear opacities. Troponin negative 42.800. WBC 17.59, neutrophils 91%, Hgb 12.7, Plt 243. Na 129, K 3.3, CO2 16.5, BUN 69, D[employer]ting [employer] 2.25, GFR 29, AST 60. INR 1.0, PTT 39.1. CK 504. Mg 2.3. Troponin negative. EKG indicated sinus tach, otherwise normal. Hospital course: 08/08/21: Patient admitted to inpatient status tonight. Patient reports cough, shortness of breath. Denies CP, nausea, sweating. Reports decreased fluid intake and fatigue for the past few days. HR slightly tachycardic, improved from prior. Normotensive upon admission. Low grade temp 99. No indication of respiratory distress, patient conversational. Patient alert, oriented. Lung sounds dim with crackles, rhonchi to bases. Repeat labs ordered for am as below; additional labs of BNP, Mg, Phos. No known CHF - patient had an echo in 2014 with normal EF, no diastolic dysfunction at that time. 9/26/21: No calls overnight. Patient states he feels a little better today, he sat on the edge of the bed for breakfast after decreased appetite recently. Breathing improved, reports less SOB, non-productive cough. Lung sounds imp roved today, crackles to R mid-lung and base. Hemodynamically stable, afebrile. Renal indices improving though remain elevated; mild hypokalemia - PO supplementation today. BNP 169, last echo normal (2014). ABG's per Dr Ventura with normal pH 7.40. UA indicates moderate bacteria and WBC 5-10k, urine culture pending. Repeat labs in am CBC, CMP, CRP, Mg, Phos, LA. 08/10/21: Patient feeling better everyday, sitting up in recliner today. Continues to have cough, shortness of breath, fatigue and weakness though this is improving. Vitals stable, continues on supplemental oxygen now on NC at 4L. WBC 17.31, Na 139, K 3.6, Mg 2.2, Phos 2.3. BUN 49, Creatinine 1.25, CrCl improving. Slight elevation of LFT's, monitoring while on remdesevir; AST 50, ALT 65. BC result received and +ve 1/2 for gm -ve coccobacilli. Changed levaquin dosing to 750mg IV daily given improvement in renal indices. Incentive spirometer to 2000ml. Started nystatin powder for groin irritation. Last BM prior to admission on 08/08/21, patient denies need for laxatives at this time. Repeat labs in am CBC, CMP, CRP, Mg, Phos, CK. 08/11/21: Patient reports appetite improving slowly. He continues to feel SOB, oxygen requirements decreased and IS to 2250ml. Occasional cough, no fevers, chills. Lung sounds with rhonchi bilaterally, exam otherwise unremarkable. Patient continuing to improve daily. Vitals stable. BC 1/2 +ve for gm + cocci, patient started on vancomycin to cover for this in addition to levaquin. Continuing COVID treatments as prior. Repeat labs in am CBC, CMP, Mg, Phos, CRP. 08/12/21: Patient on room air today and maintaining oxygen saturation. He reports having had a few looser stools yesterday, no diarrhea today thus far. Appetite remains decreased. Patient continues to report shortness of breath, though much improved. Trace edema to lower extremities, decreased IVF today. Consider DC IV fluids tomorrow if BUN continues to normalize. Lung sounds slightly diminished today. Repeat CBC, CMP, Mg, Phos in am. Hospitalization problems and plan: # COVID-19 infection # Acute hypoxic respiratory failure # Elevated D-dimer 3220 - unable to obtain CTA Chest to R/O PE due to ROBB, on lovenox at therapeutic dosing 110mg subq BID # Elevated CK 504; normalized at 74. # Elevated CRP > 11.0; repeated today 3.9 # Elevated PTT (mild) 39.7 on admission - Continue Dexamethasone 6mg IV (total of 10 day course IV/PO) - Continue Lovenox 1mg/kg BID ~ 110mg subq BID - Continue remedesevir 100mg IV daily for up to 4 doses - Continue adjunct treatments of vitamin C, vitamin D and zinc # Pneumonia - Patchy areas of linear opacification to bilateral bases R>L on CXR suggestive of developing pneumonia per radiology # Sepsis; resolved. # Leukocytosis with neutrophilia; improving - WBC 12.12 today. # Acute hypoxia - O2 sat 96 on 6L NC; maintain O2 sat > 90%. Decreased to 3L NC, 96%. # lactic acidosis - resolved. - Continue levaquin 750mg IV, changed to daily dosing today (10 day course) - BC x 2 pending - 11/15 indicate possible gm -ve organism: Final report indicates S. pneumoniae sp. - Continue vancomycin sensitivity pending - Repeat CBC in am # ROBB - improving. BUN 40, Creatinine 1.12. # Dehydration - improving. # Tachycardia; resolved. # Hypokalemia, normal following PO supplementation yesterday. - Cardiac monitoring - Decreased NS @ 50ml/hr, will continue to decrease slightly given improving renal indices - Monitor I&O - Repeat CMP in am # Hypophosphatemia; 2.9 - Neutraphos BID - Repeat Phos in am # Hypomagnesemia, 1.5 today - magnesium oxide 500mg PO daily # Hypoalbuminemia; - Continue protein dietary supplementation Chronic, stable conditions: # HTN - takes metoprolol 100mg in am, 50mg at HS, lisinopril 20mg PO daily, HCTZ 12.5mg PO daily (continue to hold anti-hypertensives). # HLD - takes lipitor 40mg PO daily - HOLD STATIN CK 504; CK normalized consider restarting. # Hypothyroidism - continue levothyroxine 137mcg PO daily; TSH 2.28 (04/21/21) # Diabetes mellitus, TII - Last A1C 7.1%. Restart metformin as renal indices significantly improved. # GERD - continue prilosec 20mg PO daily # Gout - allopurinol 400mg PO daily (HOLD) Consider restarting. # Obesity Hospitalization details: # FEN: NS 50ml/hr, Mg 1.5 - PO supplementation, ADA diet # PPX: lovenox 1mg/kg subq BID ~ 110mg, prilosec 20mg PO daily # Code status: FULL CODE - Discussed code status, patient wishes to be intubated if respiratory status deteriorates # Emergency contact: Rosa Mckeon [phone]. # Disposition: Patient continues to meet inpatient criteria for IV hydration, IV anti-virals, antibiotics and oxygen therapy. Discharge planning to be based on clinical course. Anticipate possible discharge tomorrow or 08/14/21 based on clinical course.
[2021-08-12] MEDS: Levofloxacin/Dextrose 5%-Water 500 MG in Premix Bag 1 BAG IV SCH (13:16)
[2021-08-12] MEDS: Levofloxacin/Dextrose 5%-Water 250 MG in Premix Bag 1 BAG IV SCH (14:33)
[2021-08-13 06:48] VITALS: PULSE 75
[2021-08-13 08:29] LABS: CHLORIDE,CL 105 mmol/L (98-107); SODIUM,NA 137 mmol/L (136-145)
[2021-08-13] MEDS: REMDESIVIR 100 MG in Sodium Chloride 0.9% 250 ML IV SCH (09:35)
[2021-08-13] MEDS: metFORMIN 500 MG Tab.ER PO SCH (09:37)
[2021-08-13] MEDS: Aspirin 81 MG Tab.Chew PO SCH (09:37)
[2021-08-13] MEDS: Phosphorus #1 250 MG Tab PO SCH (09:38)
[2021-08-13] MEDS: Levothyroxine 25 MCG Tab PO SCH (09:38)
[2021-08-13] MEDS: Pantoprazole 40 MG Tab.CR PO SCH (09:38)
[2021-08-13] MEDS: Levothyroxine 112 MCG Tab PO SCH (09:38)
[2021-08-13] MEDS: Ascorbic Acid 500 MG Tab PO SCH (09:39)
[2021-08-13] MEDS: Zinc (Zinc Gluconate) 50 MG Tab PO SCH (09:39)
[2021-08-13] MEDS: Magnesium Oxide 500 MG Tab PO SCH (09:40)
[2021-08-13] MEDS: Cholecalciferol (Vitamin D3) 25 MCG Tab PO SCH (09:40)
[2021-08-13] MEDS: Enoxaparin 150 MG/1 ML Syringe SUBCUT SCH (09:42)
[2021-08-13] MEDS: Dexamethasone 10 MG/ML SDV IVPUSH SCH (09:44)
[2021-08-13] MEDS: Nystatin Topical Powder 15 GM Bottle TOP SCH (09:45)
[2021-08-13] MEDS: Levofloxacin/Dextrose 5%-Water 500 MG in Premix Bag 1 BAG IV SCH (13:43)
[2021-08-13 14:48] VITALS: BP 149/84
[2021-08-13] MEDS: Levofloxacin/Dextrose 5%-Water 250 MG in Premix Bag 1 BAG IV SCH (14:56)
--- NOTE | 2021-08-13 23:30 | PCM.DCSUM1 ---
Discharge Summary - Hospital Course Free Text/Narrative:: Date of admission: 08/08/21 Date of discharge: 08/13/21 Admission diagnoses: # COVID-19 infection # Acute hypoxic respiratory failure # Pneumonia # Sepsis # Lactic acidosis # ROBB # Elevated D-dimer # Elevated CK # Hypokalemia # Hypophosphatemia # Hypomagnesemia # Hypoalbuminemia Discharge diagnoses: # COVID-19 infection # Acute hypoxic respiratory failure, improved # Pneumonia # Sepsis, resolved # Lactic acidosis, resolved # ROBB, resolved # Elevated D-dimer # Elevated CK, resolved # Hypokalemia, resolved # Hypophosphatemia, resolved # Hypomagnesemia # Hypoalbuminemia Chronic conditions: # HTN # GERD # Diabetes mellitus, type 2 # HLD # Hypothyroidism # Obesity # Gout Consultations: patient financial services specialist Procedures: None Hospital course: Mr. Hernandez is a 71yoM with a history notable for DMT2, HTN, and obesity who developed COVID-like symptoms on 07/26/21 with worsening on 07/29/21. He sought medical care on 08/05/21 when COVID testing was positive and he proceeded to receive monoclonal antibody treatment. [facility] monitoring was also started and on 08/08/21, O2 sat decreased to 87-88% and he began to feel worse with decreased appetite and fluid intake, fatigue, intermittent mild lightheadedness, cough and shortness of breath prompting him to call his son to take him to the ER for evaluation. In the ED, he was noted to be hypoxic, tachycardic and hypotensive. XR suggestive of pneumonia with linear opacities. He was admitted for inpatient care given respiratory distress. He received current standard cares for COVID-19 with associated hypoxia and inpatient status, including remdisivir, dexamethasone, and enoxaparin anticoagulation. Blood cultures grew Strep pneumoniae for which he was receiving levofloxacin and vancomycin. He had respiratory status improvement throughout his stay, but he was noted to have significant deconditioning and ongoing need for daily IV antibiotics in the setting of bacteremia; due to this and after discussions for rehabilitation, he agreed to swing bed stay for physical strengthening and ongoing IV antibiotics. Discharge and follow-up recommendations: - Discharge to swing bed status - Discharge Data Discharge Date: 08/13/21 Discharge Disposition: DC/Tfer W/I Hosp To Swing 61 Condition: Good - Referral to Home Health Primary Care Physician: PCP None - Discharge Plan Home Medications: Home Meds Aspirin [Children's Aspirin] 81 mg PO DAILY 03/16/15 [History] Levothyroxine Sodium [Synthroid] 137 mcg PO DAILY 03/16/15 [History] Lisinopril 20 mg PO BID 03/16/15 [History] Multivitamin [Multivitamins] 1 cap PO DAILY 03/16/15 [History] atorvaSTATin [Lipitor] 40 mg PO DAILY 03/16/15 [History] Allopurinol [Zyloprim] 300 mg PO DAILY 08/08/21 [History] hydroCHLOROthiazide [Hydrochlorothiazide] 12.5 mg PO DAILY 08/08/21 [History] Allopurinol [Zyloprim] 100 mg PO DAILY 08/14/21 [History] Metoprolol Succinate [Toprol XL 50mg] 100 mg PO DAILY 08/14/21 [History] Metoprolol Succinate [Toprol Xl] 50 mg PO 1800 08/14/21 [History] Omeprazole [Prilosec] 20 mg PO DAILY PRN 08/14/21 [History] metFORMIN [Glucophage XR] 1,000 mg PO DAILY 08/14/21 [History] - Discharge Summary/Plan Comment DC Time >30 min.: Yes Total # of Minutes for Discharge Time: 45 - General Info Subjective Update: Mr. Hernandez reports feeling ongoing improvement since admission, but with significant ongoing fatigue and shortness of breath, especially with exertion. Denies chest pain. Appetite improving. Voiding and stooling without difficulty. No other concerns. - Patient Data Vitals - Most Recent: Last Vital Signs Temp 36.4 C 08/13/21 14:47 Pulse 75 08/13/21 14:47 Resp 20 08/13/21 14:47 BP 149/84 H 08/13/21 14:47 Pulse Ox 95 08/13/21 14:47 Weight - Most Recent: 117.163 kg I&O - Last 24 hours: Intake & Output 08/13/21 08/13/21 08/14/21 14:59 22:59 06:59 Intake Total 1909 368 Output Total 1 Balance 191 367 Lab Results - Last 24 hrs: Laboratory Results - last 24 hr 08/13/21 08/13/21 08/13/21 Range/Units 08:00 08:00 10:28 WBC 14.22 H (5.00-10.00) 10^3/uL RBC 3.64 L (4.50-6.00) 10^6/uL Hgb 11.0 L (13.0-17.0) g/dL Hct 33.9 L (40.0-52.0) % MCV 93.1 H (82.0-92.0) fL MCH 30.2 (27.0-31.0) pg MCHC 32.4 (32.0-36.0) g/dL RDW 16.6 H (11.5-14.5) % Plt Count 355 (150-400) 10^3/uL MPV 10.0 (7.4-10.4) fL Add Manual Diff Yes Neutrophils % (Manual) 84 H (50-70) % Band Neutrophils % 2 L (4-12) % Lymphocytes % (Manual) 5 L (20-40) % Atypical Lymphs % 0 Monocytes % (Manual) 4 (2-8) % Eosinophils % (Manual) 0 L (1-3) % Basophils % (Manual) 0 (0-1) % Metamyelocytes % 2 Myelocytes % 3 Toxic Granulation 1+ slight Platelet Estimate Increased Anisocytosis 2+ moderate [place] Bodies Rare Sodium 137 (136-145) mmol/L Potassium 3.8 (3.5-5.1) mmol/L Chloride 105 (98-107) mmol/L Carbon Dioxide 22.8 (21.0-32.0) mmol/L Anion Gap 13.0 (5-15) mmol/L BUN 26 H (7-18) mg/dL Creatinine 0.89 (0.51-1.17) mg/dL Est Cr Clr Drug Dosing 79.74 mL/min Estimated GFR (MDRD) > 60 mL/min Glucose 170 H (70-140) mg/dL Calcium 8.3 L (8.7-10.3) mg/dL Phosphorus 2.8 (2.6-4.7) mg/dL Magnesium 1.1 L (1.8-2.4) mg/dL Total Bilirubin 0.6 (0.2-1.0) mg/dL AST 17 (15-37) U/L ALT 42 (14-63) U/L Alkaline Phosphatase 76 (46-116) U/L Total Protein 5.8 L (6.4-8.2) g/dL Albumin 1.80 L (3.40-5.00) g/dL Vancomycin Trough 14.9 L (18.0-26.0) ug/mL [facility]FIN[facility] Results - Last 24 hrs: Microbiology 08/08/21 20:30 Aerobic Blood Culture - Final Blood - Venous - Lab Draw NO GROWTH AFTER 5 DAYS Anaerobic Blood Culture - Preliminary Med Orders - Current: Current Medications Discontinued Medications Acetaminophen (Acetaminophen 325 Mg Tab) 650 mg PO Q4H PRN PRN Reason: Pain (Mild 1-3)/fever Ascorbic Acid (Ascorbic Acid 500 Mg Tab) 1,000 mg PO BID [facility] Last Admin: 08/13/21 09:39 Dose: 1,000 mg Documented by: Aspirin (Aspirin 81 Mg Tab.Chew) 81 mg PO DAILY [facility] Last Admin: 08/13/21 09:37 Dose: 81 mg Documented by: Cholecalciferol (Cholecalciferol (Vitamin D3) 25 Mcg Tab) 25 mcg PO DAILY [facility] Last Admin: 08/13/21 09:40 Dose: 25 mcg Documented by: Dexamethasone (Dexamethasone 10 Mg/Ml Sdv) 6 mg IVPUSH DAILY [facility] Last Admin: 08/13/21 09:44 Dose: 6 mg Documented by: Enoxaparin Sodium (Enoxaparin 150 Mg/1 Ml Syringe) 110 mg SUBCUT Q12H [facility] Last Admin: 08/13/21 09:42 Dose: 110 mg Documented by: Sodium Chloride (Normal Saline) 1,000 mls @ 999 mls/hr IV .BOLUS ONE Stop: 08/08/21 18:00 Last Admin: 08/08/21 17:00 Dose: 999 mls/hr Documented by: Sodium Chloride (Normal Saline) 1,000 mls @ 150 mls/hr IV .BOLUS ONE Stop: 08/09/21 00:46 Last Admin: 08/08/21 18:07 Dose: 150 mls/hr Documented by: Sodium Chloride (Normal Saline) 1,000 mls @ 150 mls/hr IV ASDIRECTED [facility] Last Admin: 08/10/21 10:15 Dose: 150 mls/hr Documented by: Levofloxacin/Dextrose 250 mg/ (Premix) 50 mls @ 50 mls/hr IV Q48H [facility] Last Admin: 08/08/21 22:22 Dose: 50 mls/hr Documented by: Levofloxacin/Dextrose 500 mg/ (Premix) 100 mls @ 100 mls/hr IV Q24H [facility] Last Admin: 08/09/21 00:17 Dose: Not Given Documented by: Levofloxacin/Dextrose 500 mg/ (Premix) 100 mls @ 100 mls/hr IV Q48H [facility] Last Admin: 08/08/21 22:56 Dose: 100 mls/hr Documented by: Remdesivir 200 mg/ Sodium (Chloride) 250 mls @ 250 mls/hr IV ONETIME ONE Stop: 08/09/21 09:55 Last Admin: 08/09/21 11:15 Dose: 250 mls/hr Documented by: Remdesivir 100 mg/ Sodium (Chloride) 250 mls @ 250 mls/hr IV Q24H [facility] Stop: 08/13/21 11:00 Last Admin: 08/13/21 09:35 Dose: 250 mls/hr Documented by: Levofloxacin/Dextrose 250 mg/ (Premix) 50 mls @ 50 mls/hr IV Q24H [facility] Last Admin: 08/10/21 13:21 Dose: 50 mls/hr Documented by: Levofloxacin/Dextrose 500 mg/ (Premix) 100 mls @ 100 mls/hr IV Q24H [facility] Last Admin: 08/13/21 13:43 Dose: 100 mls/hr Documented by: Sodium Chloride (Normal Saline) 1,000 mls @ 125 mls/hr IV ASDIRECTED [facility] Last Infusion: 08/11/21 14:54 Dose: Infused Documented by: Vancomycin HCl 1.25 gm/ Sodium (Chloride) 250 mls @ 125 mls/hr IV Q12H [facility] Last Admin: 08/11/21 14:54 Dose: Not Given Documented by: Vancomycin HCl 1.25 gm/ Sodium (Chloride) 250 mls @ 125 mls/hr IV Q12H [facility] Levofloxacin/Dextrose 250 mg/ (Premix) 50 mls @ 50 mls/hr IV Q24H [facility] Last Admin: 08/13/21 14:56 Dose: 50 mls/hr Documented by: Vancomycin HCl 1.25 gm/ Sodium (Chloride) 250 mls @ 125 mls/hr IV Q12H [facility] Last Admin: 08/13/21 16:32 Dose: Not Given Documented by: Sodium Chloride (Normal Saline) 1,000 mls @ 75 mls/hr IV ASDIRECTED [facility] Last Infusion: 08/12/21 10:52 Dose: Infused Documented by: Sodium Chloride (Normal Saline) 1,000 mls @ 50 mls/hr IV ASDIRECTED [facility] Last Admin: 08/12/21 14:34 Dose: 50 mls/hr Documented by: Levothyroxine Sodium (Levothyroxine 112 Mcg Tab) 112 mcg PO DAILY [facility] Last Admin: 08/13/21 09:38 Dose: 112 mcg Documented by: Levothyroxine Sodium (Levothyroxine 25 Mcg Tab) 25 mcg PO DAILY [facility] Last Admin: 08/13/21 09:38 Dose: 25 mcg Documented by: Magnesium Oxide (Magnesium Oxide 500 Mg Tab) 500 mg PO DAILY [facility] Last Admin: 08/13/21 09:40 Dose: 500 mg Documented by: Metformin HCl (Metformin 500 Mg Tab.Er) 1,000 mg PO DAILY [facility] Last Admin: 08/13/21 09:37 Dose: 1,000 mg Documented by: Nystatin (Nystatin Topical Powder 15 Gm Bottle) 1 gm TOP BID [facility] Last Admin: 08/13/21 09:45 Dose: Not Given Documented by: Pantoprazole Sodium (Pantoprazole 40 Mg Tab.Cr) 40 mg PO DAILY [facility] Last Admin: 08/13/21 09:38 Dose: 40 mg Documented by: Potassium Chloride (Potassium Chloride 20 Meq Tab.Er) 40 meq PO ONETIME ONE Stop: 08/09/21 09:54 Last Admin: 08/09/21 11:26 Dose: 40 meq Documented by: Sodium Phosphate (Phosphorus #1 250 Mg Tab) 250 mg PO BID [facility] Last Admin: 08/13/21 09:38 Dose: 250 mg Documented by: Vancomycin HCl (Pharmacy To Dose - Vancomycin) 1 dose .XX ASDIRECTED [facility] Zinc Gluconate (Zinc (Zinc Gluconate) 50 Mg Tab) 200 mg PO DAILY [facility] Stop: 08/13/21 14:30 Last Admin: 08/13/21 09:39 Dose: 200 mg Documented by: - Exam Physical Findings Comments:: GENERAL: Elderly white male lying in hospital bed in no acute distress. HEENT: Normocephalic, atraumatic. Conjunctiva clear. Nasal cannula in place. Mucous membranes moist, posterior pharynx unremarkable. NECK: Supple, no masses. CV: Regular rate and rhythm, no murmurs, rubs, or gallops. 2+ radial pulses. PULMONARY: Normal effort, clear to auscultation bilaterally, no wheezes, rales, or rhonchi. ABDOMEN: Positive bowel sounds, soft, nontender, nondistended. EXTREMITIES: No edema, cyanosis, or clubbing. MUSCULOSKELETAL: Moves all extremities well. NEUROLOGICAL: No obvious deficits. DERMATOLOGIC: No rashes or suspicious lesions in exposed areas. PSYCHIATRIC: Alert, interactive, appropriate affect.
== END 2021-08-13 18:32 | disposition swing bed (61) | DRG 871 ==
LOC: KA.ED 16:25 → UNDOADMIN 20:21 → KA.MS 20:21
PROVIDERS: ADMIT Physician Assistant; ATTEND Nurse Practitioner Family
PROC: 3E0333Z Introduction of Anti-inflammatory into Peripheral Vein, Percutaneous Approach (ICD-10-PCS; 2021-08-08)
PROC: XW033E5 Introduction of Remdesivir Anti-infective into Peripheral Vein, Percutaneous Approach, New Technology Group 5 (ICD-10-PCS; principal; 2021-08-09)
DX: A41.9 Sepsis, unspecified organism (principal); A40.3 Sepsis due to Streptococcus pneumoniae; R06.03 Acute respiratory distress; U07.1 COVID-19; E86.0 Dehydration; R65.20 Severe sepsis without septic shock; J96.01 Acute respiratory failure with hypoxia; J18.9 Pneumonia, unspecified organism; I10 Essential (primary) hypertension; N17.9 Acute kidney failure, unspecified; E87.6 Hypokalemia; E83.42 Hypomagnesemia; E88.09 Other disorders of plasma-protein metabolism, not elsewhere classified; E83.39 Other disorders of phosphorus metabolism; E66.9 Obesity, unspecified; K21.9 Gastro-esophageal reflux disease without esophagitis; E78.5 Hyperlipidemia, unspecified; E03.9 Hypothyroidism, unspecified; M10.9 Gout, unspecified; H54.7 Unspecified visual loss; E78.00 Pure hypercholesterolemia, unspecified; M19.90 Unspecified osteoarthritis, unspecified site; E11.9 Type 2 diabetes mellitus without complications; Z79.82 Long term (current) use of aspirin; Z79.890 Hormone replacement therapy; Z79.899 Other long term (current) drug therapy; Z87.891 Personal history of nicotine dependence; Z98.49 Cataract extraction status, unspecified eye
CPT/HCPCS: 36415; 36600; 71045; 80048; 80053; 80076; 80202; 81001; 82248; 82550; 82803; 83605; 83615; 83735; 83880; 84100; 84145; 84484; 85025; 85379; 85610; 85730; 86140; 86141; 87040; 87086; 87186; 87205; 93005; 99284; 99285-25; A9270-GY; J1100; J1650; J1956; J3370; J7030; J7050

== ENCOUNTER 2021-08-13 11:09 | Inpatient (IN) | payer MEDICARE, BC ==
[2021-08-13] MEDS ORDERED: Acetaminophen 325 MG Tab PO PRN (18:34)
[2021-08-13] MEDS: Enoxaparin 150 MG/1 ML Syringe SUBCUT SCH (21:17)
[2021-08-13] MEDS: Phosphorus #1 250 MG Tab PO SCH (21:18)
[2021-08-13] MEDS: Ascorbic Acid 500 MG Tab PO SCH (21:18)
[2021-08-13] MEDS: Nystatin Topical Powder 15 GM Bottle TOP SCH (21:23)
--- NOTE | 2021-08-13 23:29 | PCM.HP.2 ---
H&P History of Present Illness - General Date of Service: 08/13/21 Admit Problem/Dx: Admission Diagnosis/Problem Admission Diagnosis/Problem Sepsis Source of Information: Patient, Old Records, RN Notes Reviewed History Limitations: Reports: No Limitations - History of Present Illness Initial Comments - Free Text/Narative: Mr. Hernandez is a 71yoM with a history notable for DMT2, HTN, and obesity who developed COVID-like symptoms on 07/26/21 with worsening on 07/29/21. He sought medical care on 08/05/21 when COVID testing was positive and he proceeded to receive monoclonal antibody treatment. [facility] home monitoring was also started and on 08/08/21, O2 sat decreased to 87-88% and he began to feel worse with decreased appetite and fluid intake, fatigue, intermittent mild lightheadedness, cough and shortness of breath prompting him to call his son to take him to the ER for evaluation. In the ED, he was noted to be hypoxic, tachycardic and hypotensive. XR suggestive of pneumonia with linear opacities. He was admitted for inpatient care given respiratory distress. He received current standard cares for COVID-19 with associated hypoxia and inpatient status, including remdisivir, dexamethasone, and enoxaparin anticoagulation. Blood cultures grew Strep pneumoniae for which he was receiving levofloxacin and vancomycin. He had respiratory status improvement throughout his stay, but he was noted to have significant deconditioning and ongoing need for daily IV antibiotics in the setting of bacteremia; due to this and after discussions for rehabilitation, he agreed to swing bed stay for physical strengthening and ongoing IV antibiotics. - Related Data Allergies/Adverse Reactions: Allergies Allergy/AdvReac Type Severity Reaction Status Date / Time No Known Allergies Allergy Verified 08/13/21 23:29 Home Medications: Home Meds Aspirin [Children's Aspirin] 81 mg PO DAILY 03/16/15 [History] Levothyroxine Sodium [Synthroid] 137 mcg PO DAILY 03/16/15 [History] Lisinopril 20 mg PO BID 03/16/15 [History] Multivitamin [Multivitamins] 1 cap PO DAILY 03/16/15 [History] atorvaSTATin [Lipitor] 40 mg PO DAILY 03/16/15 [History] Allopurinol [Zyloprim] 300 mg PO DAILY 08/08/21 [History] hydroCHLOROthiazide [Hydrochlorothiazide] 12.5 mg PO DAILY 08/08/21 [History] Allopurinol [Zyloprim] 100 mg PO DAILY 08/14/21 [History] Metoprolol Succinate [Toprol XL 50mg] 100 mg PO DAILY 08/14/21 [History] Metoprolol Succinate [Toprol Xl] 50 mg PO 1800 08/14/21 [History] Omeprazole [Prilosec] 20 mg PO DAILY PRN 08/14/21 [History] metFORMIN [Glucophage XR] 1,000 mg PO DAILY 08/14/21 [History] Past Medical History HEENT History: Reports: Cataract, Impaired Vision Cardiovascular History: Reports: High Cholesterol, Hypertension Gastrointestinal History: Reports: GERD Musculoskeletal History: Reports: Arthritis, Gout Endocrine/Metabolic History: Reports: Diabetes, Type II, Hypothyroidism, Obesity/BMI 30+ - Infectious Disease History Infectious Disease History: Reports: Chicken Pox, Measles, Mumps - Past Surgical History HEENT Surgical History: Reports: Cataract Surgery Cardiovascular Surgical History: Reports: None GI Surgical History: Reports: None Musculoskeletal Surgical History: Reports: Arthroscopic Knee, Shoulder Surgery Other Musculoskeletal Surgeries/Procedures:: right knee ACL repair. bilateral shoulder surgery Social & Family History - Family History Family Medical History: No Pertinent Family History Cardiac: Reports: CAD Neurological: Reports: Parkinson's - Tobacco Use Tobacco Use Status *Q: Former Tobacco User Used Tobacco, but Quit: Yes Month/Year Tobacco Last Used: 1999 - Caffeine Use Caffeine Use: Reports: Coffee, Soda - Recreational Drug Use Recreational Drug Use: No H&P Review of Systems - Review of Systems: Review Of Systems: Comprehensive ROS is negative, except as noted in HPI. Exam - Exam Exam: See Below - Vital Signs Vital Signs: Last Vital Signs Temp 36.4 C 08/13/21 18:34 Pulse 75 08/13/21 18:34 Resp 20 08/13/21 18:34 BP 149/84 H 08/13/21 18:34 Pulse Ox 95 08/13/21 18:34 Weight: 124.148 kg - Exam Physical Exam Comments:: GENERAL: Elderly white male lying in hospital bed in no acute distress. HEENT: Normocephalic, atraumatic. Conjunctiva clear. Nasal cannula in place. Mucous membranes moist, posterior pharynx unremarkable. NECK: Supple, no masses. CV: Regular rate and rhythm, no murmurs, rubs, or gallops. 2+ radial pulses. PULMONARY: Normal effort, clear to auscultation bilaterally, no wheezes, rales, or rhonchi. ABDOMEN: Positive bowel sounds, soft, nontender, nondistended. EXTREMITIES: No edema, cyanosis, or clubbing. MUSCULOSKELETAL: Moves all extremities well. NEUROLOGICAL: No obvious deficits. DERMATOLOGIC: No rashes or suspicious lesions in exposed areas. PSYCHIATRIC: Alert, interactive, appropriate affect. - Patient Data Result Diagrams: 08/16/21 08:00 08/16/21 08:00 Sepsis Event Note - Evaluation Sepsis Screening Result: No Definite Risk - Focused Exam Vital Signs: Vital Signs Temp Pulse Resp BP Pulse Ox Pulse Ox 08/13/21 18:34 36.4 C 75 20 149/84 H 95 95 Problem List Initiated/Reviewed/Updated: Yes Orders Last 24hrs: Active Orders 24 hr Category Date Time Status Patient Status [ADT] Routine ADT 08/13/21 18:34 Active Dietary Supplements [RC] WITHMEALSANDBED Care 08/13/21 18:34 Active Incentive Spirometry [RT Incentive Spirometry] [RC] Care 08/13/21 18:34 Active Q1HWA Intake and Output [RC] QSHIFT Care 08/13/21 18:34 Active Oxygen Therapy [RC] PRN Care 08/13/21 18:34 Active Up With Assistance [RC] ASDIRECTED Care 08/13/21 18:34 Active VTE/DVT Education [RC] PER UNIT ROUTINE Care 08/13/21 18:34 Active Vital Signs [RC] 07,19 Care 08/13/21 18:34 Active Consult to Physical Therapy [PT Evaluation and Cons 08/13/21 18:34 Active Treatment] [CONS] Routine [place] [employer] Diet [DIET] Diet 08/13/21 Breakfast Active Acetaminophen [TylenoL] Med 08/13/21 18:34 Active 650 mg PO Q4H PRN Ascorbic Acid [Vitamin C] Med 08/13/21 21:00 Active 1,000 mg PO BID Aspirin Med 08/14/21 09:00 Active 81 mg PO DAILY Cholecalciferol (Vitamin D3) [Vitamin D3] Med 08/14/21 09:00 Active 25 mcg PO DAILY Enoxaparin [Lovenox] Med 08/13/21 21:00 Active 120 mg SUBCUT Q12H Levofloxacin/Dextrose 5%-Water [Levaquin in D5W 250 MG/ Med 08/14/21 14:00 Active 50 ML] 250 mg Premix Bag 1 bag IV Q24H Levofloxacin/Dextrose 5%-Water [Levaquin in D5W 500 MG/ Med 08/14/21 13:00 Active 100 ML] 500 mg Premix Bag 1 bag IV Q24H Levothyroxine Med 08/14/21 07:30 Active 112 mcg PO ACBREAKFAST Levothyroxine Med 08/14/21 07:30 Active 25 mcg PO ACBREAKFAST Magnesium Oxide Med 08/14/21 09:00 Active 500 mg PO DAILY Nystatin [Nystop] Med 08/13/21 21:00 Active 0 gm TOP BID Pantoprazole [ProTONIX] Med 08/14/21 07:30 Active 40 mg PO ACBREAKFAST Phosphorus #1 [Neutra-Phos] Med 08/13/21 21:00 Active 250 mg PO BID dexAMETHasone [Decadron] Med 08/14/21 09:00 Active 6 mg IVPUSH DAILY metFORMIN [Glucophage XR] Med 08/14/21 09:00 Active 1,000 mg PO DAILY Resuscitation Status Routine Resus Stat 08/13/21 18:34 Ordered Medication Orders Acetaminophen (Acetaminophen 325 Mg Tab) 650 mg PO Q4H PRN PRN Reason: Pain (Mild 1-3)/fever Ascorbic Acid (Ascorbic Acid 500 Mg Tab) 1,000 mg PO BID [facility] Last Admin: 08/13/21 21:18 Dose: 1,000 mg Documented by: FLIP Aspirin (Aspirin 81 Mg Tab.Chew) 81 mg PO DAILY [facility] Cholecalciferol (Cholecalciferol (Vitamin D3) 25 Mcg Tab) 25 mcg PO DAILY [facility] Dexamethasone (Dexamethasone 10 Mg/Ml Sdv) 6 mg IVPUSH DAILY [facility] Enoxaparin Sodium (Enoxaparin 150 Mg/1 Ml Syringe) 120 mg SUBCUT Q12H [facility] Last Admin: 08/13/21 21:17 Dose: 120 mg Documented by: FLIP Levofloxacin/Dextrose 500 mg/ (Premix) 100 mls @ 100 mls/hr IV Q24H [facility] Levofloxacin/Dextrose 250 mg/ (Premix) 50 mls @ 50 mls/hr IV Q24H [facility] Levothyroxine Sodium (Levothyroxine 25 Mcg Tab) 25 mcg PO ACBREAKFAST [facility] Levothyroxine Sodium (Levothyroxine 112 Mcg Tab) 112 mcg PO ACBREAKFAST [facility] Magnesium Oxide (Magnesium Oxide 500 Mg Tab) 500 mg PO DAILY [facility] Metformin HCl (Metformin 500 Mg Tab.Er) 1,000 mg PO DAILY [facility] Nystatin (Nystatin Topical Powder 15 Gm Bottle) 0 gm TOP BID [facility] Last Admin: 08/13/21 21:23 Dose: 1 applic Documented by: FLIP Pantoprazole Sodium (Pantoprazole 40 Mg Tab.Cr) 40 mg PO ACBREAKFAST [facility] Sodium Phosphate (Phosphorus #1 250 Mg Tab) 250 mg PO BID [facility] Last Admin: 08/13/21 21:18 Dose: 250 mg Documented by: FLIP Assessment/Plan Comment:: HPI summary: Mr. Hernandez is a 71yoM with a history notable for DMT2, HTN, and obesity who developed COVID-like symptoms on 07/26/21 with worsening on 07/29/21. He sought medical care on 08/05/21 when COVID testing was positive and he proceeded to receive monoclonal antibody treatment. [facility] monitoring was also started and on 08/08/21, O2 sat decreased to 87-88% and he began to feel worse with decr eased appetite and fluid intake, fatigue, intermittent mild lightheadedness, cough and shortness of breath prompting him to call his son to take him to the ER for evaluation. In the ED, he was noted to be hypoxic, tachycardic and hypotensive. XR suggestive of pneumonia with linear opacities. He was admitted for inpatient care given respiratory distress. He received current standard cares for COVID-19 with associated hypoxia and inpatient status, including remdisivir, dexamethasone, and enoxaparin anticoagulation. Blood cultures grew Strep pneumoniae for which he was receiving levofloxacin and vancomycin. He had respiratory status improvement throughout his stay, but he was noted to have s ignificant deconditioning and ongoing need for daily IV antibiotics in the setting of bacteremia; due to this and after discussions for rehabilitation, he agreed to swing bed stay for physical strengthening and ongoing IV antibiotics. Hospitalization problems and plan: # Deconditioning # Acute hypoxic respiratory failure - Referral to PT for strengthening and oxygen conservation - Titrate oxygen to saturations of 90% or greater # COVID-19 - Finish 10-day courses of dexamethasone and vitamin C - Continue vitamin D # Bacteremia, Strep pneumoniae # Pneumonia - Continue levofloxacin 750mg daily IV for another 2 days and then plan to switch to oral to complete at least 10 day antibiotic course - Await repeat blood culture # Elevated D-dimer - Continue enoxaparin at therapeutic dosing for DVT ppx/treatment - Plan to recheck D-dimer and possible CT angiogram # Hypomagnesemia # Hypophosphatemia # Hypoalbuminemia - Recheck CMP and Mg with next labs Chronic, stable conditions: # HTN: Continue holding home regimen of lisinopril 20mg BID, HCTZ 12.5mg daily, metoprolol succinate 100mg qAM/50mg qPM. Consider re-starting based on BP trend. # GERD: Continue PPI daily. # Diabetes mellitus, type 2: Continue metformin 1000mg daily. Check A1c with next labs. # HLD: Restart atorvastatin 40mg daily. Continue ASA 81mg daily. # Hypothyroidism: TSH from 01/2021 wnl. Continue levothyroxine 137mcg daily. # BMI 38 # Gout: Uric acid from 01/2021 <6. Restart allopurinol 400mg daily. Hospitalization details: # FEN: D/c IVF. Electrolytes normal. Diabetic diet. # PPX: Enoxaparin at therapeutic dosing for DVT ppx/treatment; see above. # Code status: FULL. # Emergency contact: Daughter Rosa ([phone]). # Disposition: Admit to swing bed status. Anticipate discharge to home when clinically improved and closer to baseline functional status.
[2021-08-14] MEDS: Levothyroxine 112 MCG Tab PO SCH ×2 (05:41→06:31)
[2021-08-14] MEDS: Pantoprazole 40 MG Tab.CR PO SCH ×2 (05:42→06:31)
[2021-08-14] MEDS: Levothyroxine 25 MCG Tab PO SCH ×2 (05:42→06:31)
[2021-08-14] MEDS: metFORMIN 500 MG Tab.ER PO SCH (08:54)
[2021-08-14] MEDS: Ascorbic Acid 500 MG Tab PO SCH ×3 (08:54→20:11)
[2021-08-14] MEDS: Phosphorus #1 250 MG Tab PO SCH ×3 (08:55→20:10)
[2021-08-14] MEDS: Aspirin 81 MG Tab.Chew PO SCH (08:55)
[2021-08-14] MEDS: Magnesium Oxide 500 MG Tab PO SCH (08:55)
[2021-08-14] MEDS: Dexamethasone 10 MG/ML SDV IVPUSH SCH (08:55)
[2021-08-14] MEDS: Nystatin Topical Powder 15 GM Bottle TOP SCH ×2 (08:55→20:10)
[2021-08-14] MEDS: Cholecalciferol (Vitamin D3) 25 MCG Tab PO SCH (08:55)
[2021-08-14] MEDS: Enoxaparin 150 MG/1 ML Syringe SUBCUT SCH ×3 (08:57→20:10)
[2021-08-14] MEDS: Levofloxacin/Dextrose 5%-Water 500 MG in Premix Bag 1 BAG IV SCH (13:13)
[2021-08-14] MEDS: Sodium Chloride 0.9% 100 ML IV SCH (13:13)
[2021-08-14] MEDS: Levofloxacin/Dextrose 5%-Water 250 MG in Premix Bag 1 BAG IV SCH (14:10)
[2021-08-15] MEDS: Levothyroxine 25 MCG Tab PO SCH ×2 (05:59→06:45)
[2021-08-15] MEDS: Pantoprazole 40 MG Tab.CR PO SCH ×2 (05:59→06:45)
[2021-08-15] MEDS: Levothyroxine 112 MCG Tab PO SCH ×2 (05:59→06:45)
[2021-08-15] MEDS: Ascorbic Acid 500 MG Tab PO SCH ×2 (08:06→20:00)
[2021-08-15] MEDS: metFORMIN 500 MG Tab.ER PO SCH (08:06)
[2021-08-15] MEDS: Aspirin 81 MG Tab.Chew PO SCH (08:06)
[2021-08-15] MEDS: Magnesium Oxide 500 MG Tab PO SCH (08:06)
[2021-08-15] MEDS: Phosphorus #1 250 MG Tab PO SCH ×2 (08:06→20:00)
[2021-08-15] MEDS: Cholecalciferol (Vitamin D3) 25 MCG Tab PO SCH (08:06)
[2021-08-15] MEDS: Nystatin Topical Powder 15 GM Bottle TOP SCH ×2 (08:07→20:01)
[2021-08-15] MEDS: Dexamethasone 10 MG/ML SDV IVPUSH SCH (08:07)
[2021-08-15] MEDS: Enoxaparin 150 MG/1 ML Syringe SUBCUT SCH (08:11)
[2021-08-15] MEDS ORDERED: FLU Vacc QS2021(65UP)/MF59C/PF 60 MCG/0.5 ML Syringe IM ONE (10:30)
[2021-08-15] MEDS: Lisinopril 20 MG Tab PO SCH (10:43)
[2021-08-15] MEDS: Levofloxacin/Dextrose 5%-Water 500 MG in Premix Bag 1 BAG IV SCH (12:11)
[2021-08-15] MEDS: Sodium Chloride 0.9% 100 ML IV SCH (13:10)
[2021-08-15] MEDS: Levofloxacin/Dextrose 5%-Water 250 MG in Premix Bag 1 BAG IV SCH (13:10)
[2021-08-15] MEDS: Metoprolol Succinate 50 MG Tab.ER PO SCH (18:04)
[2021-08-16] MEDS: Levothyroxine 112 MCG Tab PO SCH ×2 (05:28→06:33)
[2021-08-16] MEDS: Pantoprazole 40 MG Tab.CR PO SCH ×2 (05:28→06:33)
[2021-08-16] MEDS: Levothyroxine 25 MCG Tab PO SCH ×2 (05:28→06:33)
[2021-08-16 08:35] LABS: HEMOGLOBIN A1C 8.3 % (4.3-5.7)
[2021-08-16] MEDS: Enoxaparin 40 MG/0.4 ML Syringe SUBCUT SCH (08:38)
[2021-08-16] MEDS: Allopurinol 100 MG Tab PO SCH (08:38)
[2021-08-16] MEDS: atorvaSTATin 40 MG Tab PO SCH (08:39)
[2021-08-16] MEDS: Phosphorus #1 250 MG Tab PO SCH ×2 (08:39→20:27)
[2021-08-16] MEDS: Magnesium Oxide 500 MG Tab PO SCH (08:39)
[2021-08-16] MEDS: Lisinopril 20 MG Tab PO SCH (08:39)
[2021-08-16] MEDS: Dexamethasone 4 MG Tab PO SCH (08:39)
[2021-08-16] MEDS: Ascorbic Acid 500 MG Tab PO SCH ×2 (08:39→20:27)
[2021-08-16] MEDS: Cholecalciferol (Vitamin D3) 25 MCG Tab PO SCH (08:40)
[2021-08-16] MEDS: Aspirin 81 MG Tab.Chew PO SCH (08:40)
[2021-08-16] MEDS: Nystatin Topical Powder 15 GM Bottle TOP SCH ×2 (08:42→20:28)
[2021-08-16 08:43] LABS: ANION GAP 12.4 mmol/L (5-15); CHLORIDE,CL 100 mmol/L (98-107); SODIUM,NA 134 mmol/L (136-145)
[2021-08-16] MEDS ORDERED: metFORMIN 500 MG Tab.ER PO SCH (09:00)
[2021-08-16] MEDS ORDERED: Non-Formulary Medication 1 Each (Allopurinol [Zyloprim] 300 MG Tablet) PO SCH (09:00)
[2021-08-16] MEDS ORDERED: Loperamide 2 MG Cap PO PRN (12:19)
[2021-08-16] MEDS: Levofloxacin/Dextrose 5%-Water 500 MG in Premix Bag 1 BAG IV SCH (12:57)
--- NOTE | 2021-08-16 14:15 | PCM.PN ---
- General Info Date of Service: 08/16/21 Subjective Update: Mr. Hernandez reports ongoing improvement in overall status in the past few days. Shortness of breath persistent, but improving. Eating, voiding, and stooling without difficulty. Motivated to start walking and attempting to regain strength. Hopes to return home when stronger. - Patient Data Vitals - Most Recent: Last Vital Signs Temp 36.1 C 08/16/21 05:58 Pulse 68 08/16/21 05:58 Resp 20 08/16/21 05:58 BP 123/70 08/16/21 08:39 Pulse Ox 95 08/16/21 05:58 Weight - Most Recent: 121.194 kg I&O - Last 24 Hours: Intake & Output 08/15/21 08/16/21 08/16/21 22:59 06:59 14:59 Intake Total 850 100 Balance 850 100 Lab Results Last 24 Hours: Laboratory Results - last 24 hr 08/16/21 08/16/21 Range/Units 08:00 08:00 WBC 10.23 H (5.00-10.00) 10^3/uL RBC 3.88 L (4.50-6.00) 10^6/uL Hgb 11.9 L (13.0-17.0) g/dL Hct 36.9 L (40.0-52.0) % MCV 95.1 H (82.0-92.0) fL MCH 30.7 (27.0-31.0) pg MCHC 32.2 (32.0-36.0) g/dL RDW 16.8 H (11.5-14.5) % Plt Count 294 (150-400) 10^3/uL MPV 10.3 (7.4-10.4) fL Add Manual Diff Yes Neutrophils % (Manual) 78 H (50-70) % Band Neutrophils % 5 (4-12) % Lymphocytes % (Manual) 7 L (20-40) % Monocytes % (Manual) 8 (2-8) % Eosinophils % (Manual) 2 (1-3) % Platelet Estimate Adequate Sodium 134 L (136-145) mmol/L Potassium 4.4 (3.5-5.1) mmol/L Chloride 100 (98-107) mmol/L Carbon Dioxide 26.0 (21.0-32.0) mmol/L Anion Gap 12.4 (5-15) mmol/L BUN 23 H (7-18) mg/dL Creatinine 0.92 (0.51-1.17) mg/dL Est Cr Clr Drug Dosing 77.14 mL/min Estimated GFR (MDRD) > 60 mL/min Glucose 112 (70-140) mg/dL Hemoglobin A1c 8.3 H (4.3-5.7) % Calcium 8.2 L (8.7-10.3) mg/dL Phosphorus 3.8 (2.6-4.7) mg/dL Magnesium 1.5 L (1.8-2.4) mg/dL Total Bilirubin 0.5 (0.2-1.0) mg/dL AST 16 (15-37) U/L ALT 32 (14-63) U/L Alkaline Phosphatase 76 (46-116) U/L C-Reactive Protein 0.7 (0.0-0.9) mg/dL Total Protein 5.0 L (6.4-8.2) g/dL Albumin 2.10 L (3.40-5.00) g/dL Da Results Last 24 Hours: Microbiology 08/15/21 07:30 Aerobic Blood Culture - Preliminary Blood NO GROWTH AFTER 1 DAY Anaerobic Blood Culture - Preliminary NO GROWTH AFTER 1 DAY Med Orders - Current: Current Medications Acetaminophen (Acetaminophen 325 Mg Tab) 650 mg PO Q4H PRN PRN Reason: Pain (Mild 1-3)/fever Allopurinol (Allopurinol 100 Mg Tab) 400 mg PO DAILY [facility] Last Admin: 08/16/21 08:38 Dose: 400 mg Documented by: Ascorbic Acid (Ascorbic Acid 500 Mg Tab) 1,000 mg PO BID [facility] Stop: 08/17/21 22:00 Last Admin: 08/16/21 08:39 Dose: 1,000 mg Documented by: Aspirin (Aspirin 81 Mg Tab.Chew) 81 mg PO DAILY [facility] Last Admin: 08/16/21 08:40 Dose: 81 mg Documented by: Atorvastatin Calcium (Atorvastatin 40 Mg Tab) 40 mg PO DAILY [facility] Last Admin: 08/16/21 08:39 Dose: 40 mg Documented by: Cholecalciferol (Cholecalciferol (Vitamin D3) 25 Mcg Tab) 25 mcg PO DAILY [facility] Last Admin: 08/16/21 08:40 Dose: 25 mcg Documented by: Dexamethasone (Dexamethasone 4 Mg Tab) 6 mg PO DAILY [facility] Stop: 08/17/21 10:00 Last Admin: 08/16/21 08:39 Dose: 6 mg Documented by: Enoxaparin Sodium (Enoxaparin 40 Mg/0.4 Ml Syringe) 40 mg SUBCUT DAILY [facility] Last Admin: 08/16/21 08:38 Dose: 40 mg Documented by: Levofloxacin/Dextrose 500 mg/ (Premix) 100 mls @ 100 mls/hr IV Q24H [facility] Stop: 08/16/21 15:00 Last Admin: 08/16/21 12:57 Dose: 100 mls/hr Documented by: Levofloxacin/Dextrose 250 mg/ (Premix) 50 mls @ 50 mls/hr IV Q24H [facility] Stop: 08/16/21 16:00 Last Admin: 08/15/21 13:10 Dose: 50 mls/hr Documented by: Sodium Chloride (Normal Saline) 100 mls @ 50 mls/hr IV ASDIRECTED [facility] Last Admin: 08/15/21 13:10 Dose: 50 mls/hr Documented by: Levofloxacin (Levofloxacin 500 Mg Tab) 750 mg PO Q24H [facility] Stop: 08/19/21 13:01 Levothyroxine Sodium (Levothyroxine 25 Mcg Tab) 25 mcg PO ACBREAKFAST [facility] Last Admin: 08/16/21 06:33 Dose: Not Given Documented by: Levothyroxine Sodium (Levothyroxine 112 Mcg Tab) 112 mcg PO ACBREAKFAST [facility] Last Admin: 08/16/21 06:33 Dose: Not Given Documented by: Lisinopril (Lisinopril 20 Mg Tab) 20 mg PO DAILY [facility] Last Admin: 08/16/21 08:39 Dose: 20 mg Documented by: Loperamide HCl (Loperamide 2 Mg Cap) 2 mg PO ASDIRECTED PRN PRN Reason: Diarrhea Magnesium Chloride (Magnesium Chloride 64 Mg Tab.Er) 64 mg PO BID [facility] Metformin HCl (Metformin 500 Mg Tab.Er) 1,000 mg PO BIDMEALS [facility] Metoprolol Succinate (Metoprolol Succinate 50 Mg Tab.Er) 50 mg PO 1800 [facility] Last Admin: 08/15/21 18:04 Dose: 50 mg Documented by: Nystatin (Nystatin Topical Powder 15 Gm Bottle) 0 gm TOP BID [facility] Last Admin: 08/16/21 08:42 Dose: Not Given Documented by: Pantoprazole Sodium (Pantoprazole 40 Mg Tab.Cr) 40 mg PO ACBREAKFAST [facility] Last Admin: 08/16/21 06:33 Dose: Not Given Documented by: Sodium Phosphate (Phosphorus #1 250 Mg Tab) 250 mg PO BID [facility] Last Admin: 08/16/21 08:39 Dose: 250 mg Documented by: Discontinued Medications Aspirin (Aspirin 81 Mg Tab.Chew) 81 mg PO DAILY [facility] Last Admin: 08/15/21 08:06 Dose: 81 mg Documented by: Dexamethasone (Dexamethasone 10 Mg/Ml Sdv) 6 mg IVPUSH DAILY [facility] Last Admin: 08/15/21 08:07 Dose: 6 mg Documented by: Enoxaparin Sodium (Enoxaparin 150 Mg/1 Ml Syringe) 120 mg SUBCUT Q12H [facility] Last Admin: 08/15/21 08:11 Dose: 120 mg Documented by: Influenza Virus Vaccine (Pharmacy To Dose - Influenza Vaccine) 1 each IM ONETIME ONE Stop: 08/15/21 10:16 Influenza Virus Vaccine (Flu Vacc Ux0626(65up)/Mf59c/Pf 60 Mcg/0.5 Ml Syringe) 60 mcg IM .ONCE ONE Stop: 08/15/21 10:31 Last Admin: 08/15/21 10:42 Dose: 60 mcg Documented by: Magnesium Oxide (Magnesium Oxide 500 Mg Tab) 500 mg PO DAILY [facility] Last Admin: 08/16/21 08:39 Dose: 500 mg Documented by: Metformin HCl (Metformin 500 Mg Tab.Er) 1,000 mg PO DAILY [facility] Last Admin: 08/15/21 08:06 Dose: 1,000 mg Documented by: Metformin HCl (Metformin 500 Mg Tab.Er) 1,000 mg PO DAILY [facility] Last Admin: 08/16/21 08:40 Dose: 1,000 mg Documented by: Non-Formulary Medication (Levothyroxine Sodium [Synthroid]) 137 mcg PO DAILY [facility] Non-Formulary Medication (Allopurinol [Zyloprim]) 300 mg PO DAILY [facility] - Exam Physical Findings Comments:: GENERAL: Elderly white male sitting on hospital bed in no acute distress. HEENT: Normocephalic, atraumatic. Conjunctiva clear. Nasal cannula in place. Mucous membranes moist, posterior pharynx unremarkable. NECK: Supple, no masses. CV: Regular rate and rhythm, no murmurs, rubs, or gallops. 2+ radial pulses. PULMONARY: Normal effort, clear to auscultation bilaterally, no wheezes, rales, or rhonchi. ABDOMEN: Positive bowel sounds, soft, nontender, nondistended. EXTREMITIES: No edema, cyanosis, or clubbing. MUSCULOSKELETAL: Moves all extremities well. NEUROLOGICAL: No obvious deficits. DERMATOLOGIC: No rashes or suspicious lesions in exposed areas. PSYCHIATRIC: Alert, interactive, appropriate affect. - Patient Data Lab Results Last 24 hrs: Laboratory Results - last 24 hr 08/16/21 08/16/21 Range/Units 08:00 08:00 WBC 10.23 H (5.00-10.00) 10^3/uL RBC 3.88 L (4.50-6.00) 10^6/uL Hgb 11.9 L (13.0-17.0) g/dL Hct 36.9 L (40.0-52.0) % MCV 95.1 H (82.0-92.0) fL MCH 30.7 (27.0-31.0) pg MCHC 32.2 (32.0-36.0) g/dL RDW 16.8 H (11.5-14.5) % Plt Count 294 (150-400) 10^3/uL MPV 10.3 (7.4-10.4) fL Add Manual Diff Yes Neutrophils % (Manual) 78 H (50-70) % Band Neutrophils % 5 (4-12) % Lymphocytes % (Manual) 7 L (20-40) % Monocytes % (Manual) 8 (2-8) % Eosinophils % (Manual) 2 (1-3) % Platelet Estimate Adequate Sodium 134 L (136-145) mmol/L Potassium 4.4 (3.5-5.1) mmol/L Chloride 100 (98-107) mmol/L Carbon Dioxide 26.0 (21.0-32.0) mmol/L Anion Gap 12.4 (5-15) mmol/L BUN 23 H (7-18) mg/dL Creatinine 0.92 (0.51-1.17) mg/dL Est Cr Clr Drug Dosing 77.14 mL/min Estimated GFR (MDRD) > 60 mL/min Glucose 112 (70-140) mg/dL Hemoglobin A1c 8.3 H (4.3-5.7) % Calcium 8.2 L (8.7-10.3) mg/dL Phosphorus 3.8 (2.6-4.7) mg/dL Magnesium 1.5 L (1.8-2.4) mg/dL Total Bilirubin 0.5 (0.2-1.0) mg/dL AST 16 (15-37) U/L ALT 32 (14-63) U/L Alkaline Phosphatase 76 (46-116) U/L C-Reactive Protein 0.7 (0.0-0.9) mg/dL Total Protein 5.0 L (6.4-8.2) g/dL Albumin 2.10 L (3.40-5.00) g/dL Result Diagrams: 08/16/21 08:00 08/16/21 08:00 Da Results Last 24 hrs: Microbiology 08/15/21 07:30 Aerobic Blood Culture - Preliminary Blood NO GROWTH AFTER 1 DAY Anaerobic Blood Culture - Preliminary NO GROWTH AFTER 1 DAY Sepsis Event Note - Evaluation Sepsis Screening Result: No Definite Risk - Focused Exam Vital Signs: Vital Signs Temp Pulse Resp BP BP Pulse Ox 08/16/21 08:39 123/70 08/16/21 05:58 36.1 C 68 20 116/68 95 - Problem List Review Problem List Initiated/Reviewed/Updated: Yes - My Orders Last 24 Hours: My Active Orders 08/15/21 18:00 Metoprolol Succinate [Toprol XL] 50 mg PO 1800 08/16/21 09:00 Aspirin 81 mg PO DAILY Enoxaparin [Lovenox] 40 mg SUBCUT DAILY allopurinoL [Zyloprim] 400 mg PO DAILY atorvaSTATin [Lipitor] 40 mg PO DAILY dexAMETHasone 6 mg PO DAILY 08/16/21 12:19 Loperamide [Imodium] 2 mg PO ASDIRECTED PRN 08/16/21 18:00 metFORMIN [Glucophage XR] 1,000 mg PO BIDMEALS 08/16/21 21:00 Magnesium Chloride [Mag-64] 64 mg PO BID 08/17/21 08:00 Consult to Physical Therapy [PT Evaluation and Treatment] [CONS] Routine 08/17/21 13:00 levoFLOXacin [Levaquin] 750 mg PO Q24H 08/24/21 05:11 BMP [BASIC METABOLIC PANEL,BMP] [CHEM] AM CBC WITH AUTO DIFF [HEME] AM MAGNESIUM [CHEM] AM - Assessment Assessment:: HPI summary: Mr. Hernandez is a 71yoM with a history notable for DMT2, HTN, and obesity who developed COVID-like symptoms on 07/26/21 with worsening on 07/29/21. He sought medical care on 08/05/21 when COVID testing was positive and he proceeded to receive monoclonal antibody treatment. [place] home monitoring was also started and on 08/08/21, O2 sat decreased to 87-88% and he began to feel worse with decreased appetite and fluid intake, fatigue, intermittent mild lightheadedness, cough and shortness of breath prompting him to call his son to take him to the ER for evaluation. In the ED, he was noted to be hypoxic, tachycardic and hypotensive. XR suggestive of pneumonia with linear opacities. He was admitted for inpatient care given respiratory distress. He received current standard cares for COVID-19 with associated hypoxia and inpatient status, including remdisivir, dexamethasone, and enoxaparin anticoagulation. Blood cultures grew Strep pneumoniae for which he was receiving levofloxacin and vancomycin. He had respiratory status improvement throughout his stay, but he was noted to have significant deconditioning and ongoing need for daily IV antibiotics in the setting of bacteremia; due to this and after discussions for rehabilitation, he agreed to swing bed stay for physical strengthening and ongoing IV antibiotics. Swing bed course: 08/16/21: Status improving. Previously ordered/collected repeat blood culture not completed, so obtained again and currently without growth x1 day. A1c obtained = 8.3%. D-dimer inadvertantly not obtained with labs today for follow-up, so will obtain tomorrow to guide if CT chest needs to be completed to de-escalate enoxaparin dosing. Hospitalization problems and plan: # Deconditioning # Acute hypoxic respiratory failure - Referral to PT for strengthening and oxygen conservation (was previously deferred to to ongoing infectious precautions precluding leaving patient room) - Titrate oxygen to saturations of 90% or greater # COVID-19 - Finish 10-day courses of dexamethasone and vitamin C - Continue vitamin D # Bacteremia, Strep pneumoniae # Pneumonia - Levofloxacin 750mg daily, 7th IV dose today; switch to oral to complete 10 day antibiotic course - Await repeat blood culture # Elevated D-dimer - Recheck D-dimer; if positive, obtain CT angiogram - De-escalate enoxaparin to prophylactic dosing if no evidence of PE # Hypomagnesemia, persistent - Change magnesium to MgCl 64mg BID - Recheck in 1 week # Hypophosphatemia, resolved - Discontinue NeutraPhos - Recheck in 1 week # Hypoalbuminemia - Recheck in 1 week Chronic, stable conditions: # HTN: BPs increasing; pulse in the 80s-90s. Restart lisinopril 20mg daily (was on 20mg BID previously) and metoprolol 50mg qPM (was on 100mg qAM/50mg qPM previously). Continue holding HCTZ 12.5mg daily. # GERD: Controlled. Continue PPI daily. # Diabetes mellitus, type 2: A1c Continue metformin 1000mg daily. Check A1c with next labs. # HLD: Lipid panel from 01/2021 with LDL 77. Continue atorvastatin 40mg daily, ASA 81mg daily. # Hypothyroidism: TSH from 01/2021 wnl. Continue levothyroxine 137mcg daily. # BMI 38 # Gout: Uric acid from 01/2021 <6. Restart allopurinol 400mg daily. Hospitalization details: # FEN: No IVF. Electrolytes normal. Diabetic diet. # PPX: Enoxaparin as above. # Code status: FULL. # Emergency contact: Daughter Rosa ([phone]). # Disposition: Continue swing bed status. Anticipate discharge to home when clinically improved and closer to baseline functional status.
[2021-08-16] MEDS: Levofloxacin/Dextrose 5%-Water 250 MG in Premix Bag 1 BAG IV SCH (14:18)
[2021-08-16] MEDS: metFORMIN 500 MG Tab.ER PO SCH (17:36)
[2021-08-16] MEDS: Metoprolol Succinate 50 MG Tab.ER PO SCH (17:36)
[2021-08-16] MEDS: Magnesium Chloride 64 MG Tab.ER PO SCH (20:27)
[2021-08-17] MEDS: Levothyroxine 112 MCG Tab PO SCH ×2 (05:13→06:30)
[2021-08-17] MEDS: Pantoprazole 40 MG Tab.CR PO SCH ×2 (05:14→06:30)
[2021-08-17] MEDS: Levothyroxine 25 MCG Tab PO SCH ×2 (05:14→06:30)
[2021-08-17] MEDS: Ascorbic Acid 500 MG Tab PO SCH ×2 (08:05→20:28)
[2021-08-17] MEDS: metFORMIN 500 MG Tab.ER PO SCH ×3 (08:05→17:39)
[2021-08-17] MEDS: Allopurinol 100 MG Tab PO SCH (08:05)
[2021-08-17] MEDS: Magnesium Chloride 64 MG Tab.ER PO SCH ×2 (08:05→20:28)
[2021-08-17] MEDS: Dexamethasone 4 MG Tab PO SCH (08:06)
[2021-08-17] MEDS: Lisinopril 20 MG Tab PO SCH (08:06)
[2021-08-17] MEDS: Enoxaparin 40 MG/0.4 ML Syringe SUBCUT SCH (08:06)
[2021-08-17] MEDS: atorvaSTATin 40 MG Tab PO SCH (08:06)
[2021-08-17] MEDS: Nystatin Topical Powder 15 GM Bottle TOP SCH ×2 (08:07→21:00)
[2021-08-17] MEDS: Aspirin 81 MG Tab.Chew PO SCH (08:07)
[2021-08-17] MEDS: Cholecalciferol (Vitamin D3) 25 MCG Tab PO SCH (08:07)
[2021-08-17] MEDS ORDERED: Iopamidol 755 Mg/ML 75 ML Bottle IVPUSH ONE (08:50)
[2021-08-17] MEDS ORDERED: Sodium Chloride 0.9% 50 ML IV SCH (09:00)
--- NOTE | 2021-08-17 10:29 | CT ---
[id number] CT/CTA Chest Exam: CTA Chest Clinical Data: ELEVATED D-DIMER COVID COMPARISON: CORRELATION IS MADE WITH THE RECENT CHEST RADIOGRAPH FINDINGS: Bilateral infiltrates are seen consistent with the history. There are no pulmonary emboli There are atheromatous calcifications There is no adrenal mass IMPRESSION: NO PULMONARY EMBOLI. BILATERAL PNEUMONIA Royce Campbell MD 08/17/21 [id number] Thank you for allowing us to participate in the care of your patient.
[2021-08-17] MEDS: Levofloxacin 500 MG Tab PO SCH (13:51)
[2021-08-17] MEDS: Metoprolol Succinate 50 MG Tab.ER PO SCH (17:27)
[2021-08-18] MEDS: Pantoprazole 40 MG Tab.CR PO SCH ×2 (05:15→06:32)
[2021-08-18] MEDS: Levothyroxine 112 MCG Tab PO SCH ×2 (05:15→06:32)
[2021-08-18] MEDS: Levothyroxine 25 MCG Tab PO SCH ×2 (05:15→06:32)
[2021-08-18] MEDS: Magnesium Chloride 64 MG Tab.ER PO SCH ×2 (07:59→20:46)
[2021-08-18] MEDS: Aspirin 81 MG Tab.Chew PO SCH (07:59)
[2021-08-18] MEDS: atorvaSTATin 40 MG Tab PO SCH (07:59)
[2021-08-18] MEDS: Allopurinol 100 MG Tab PO SCH (08:00)
[2021-08-18] MEDS: Cholecalciferol (Vitamin D3) 25 MCG Tab PO SCH (08:00)
[2021-08-18] MEDS: Lisinopril 20 MG Tab PO SCH (08:03)
[2021-08-18] MEDS: Enoxaparin 40 MG/0.4 ML Syringe SUBCUT SCH (08:03)
[2021-08-18] MEDS: Nystatin Topical Powder 15 GM Bottle TOP SCH (08:08)
[2021-08-18] MEDS: Levofloxacin 500 MG Tab PO SCH (13:05)
[2021-08-18] MEDS ORDERED: Nystatin Topical Powder 15 GM Bottle TOP PRN (13:25)
[2021-08-18] MEDS: Metoprolol Succinate 50 MG Tab.ER PO SCH (18:30)
[2021-08-19] MEDS: Levothyroxine 112 MCG Tab PO SCH (07:23)
[2021-08-19] MEDS: Levothyroxine 25 MCG Tab PO SCH (07:23)
[2021-08-19] MEDS: Pantoprazole 40 MG Tab.CR PO SCH (07:23)
[2021-08-19] MEDS: Enoxaparin 40 MG/0.4 ML Syringe SUBCUT SCH (08:26)
[2021-08-19] MEDS: Allopurinol 100 MG Tab PO SCH (08:26)
[2021-08-19] MEDS: Aspirin 81 MG Tab.Chew PO SCH (08:26)
[2021-08-19] MEDS: Lisinopril 20 MG Tab PO SCH (08:26)
[2021-08-19] MEDS: Magnesium Chloride 64 MG Tab.ER PO SCH (08:27)
[2021-08-19] MEDS: atorvaSTATin 40 MG Tab PO SCH (08:27)
[2021-08-19] MEDS: Cholecalciferol (Vitamin D3) 25 MCG Tab PO SCH (08:27)
[2021-08-19 10:56] LABS: ANION GAP 11.5 mmol/L (5-15); CHLORIDE,CL 99 mmol/L (98-107); SODIUM,NA 132 mmol/L (136-145)
[2021-08-19] MEDS: Levofloxacin 500 MG Tab PO SCH (12:56)
--- NOTE | 2021-08-19 13:16 | PCM.DCSUM1 ---
Discharge Summary - Hospital Course Free Text/Narrative:: Date of admission: 08/13/21 to swing bed status Date of discharge: 08/19/21 Admission diagnoses: # Deconditioning # Acute hypoxic respiratory failure # COVID-19 # Bacteremia, Strep pneumoniae # Pneumonia # Elevated D-dimer # Hypomagnesemia # Hypophosphatemia # Hypoalbuminemia Discharge diagnoses: # Deconditioning, improved # Acute hypoxic respiratory failure, resolved # COVID-19 # Bacteremia, Strep pneumoniae, resolved # Pneumonia, resolved # Elevated D-dimer # Hypomagnesemia, persistent # Hypophosphatemia, resolved # Hypoalbuminemia Chronic, stable conditions: # HTN: Lisinopril 20mg daily (was on 20mg BID previously) and metoprolol 50mg qPM (was on 100mg qAM/50mg qPM previously) restarted. Holding HCTZ 12.5mg daily. # GERD: Controlled. PPI daily. # Diabetes mellitus, type 2: A1c 8.3%. Metformin increased to 1000mg BID. # HLD: Lipid panel from 01/2021 with LDL 77. Atorvastatin 40mg daily, ASA 81mg daily. # Hypothyroidism: TSH from 01/2021 wnl. Levothyroxine 137mcg daily. # BMI 38 # Gout: Uric acid from 01/2021 <6. Allopurinol 400mg daily. Consultations: Physical therapy Case management/social work Procedures: None Hospital course: Mr. Hernandez is a 71yoM with a history notable for DMT2, HTN, and obesity who developed COVID-like symptoms on 07/26/21 with worsening on 07/29/21. He sought medical care on 08/05/21 when COVID testing was positive and he proceeded to receive monoclonal antibody treatment. [place] home monitoring was also started and on 08/08/21, O2 sat decreased to 87-88% and he began to feel worse with decreased appetite and fluid intake, fatigue, intermittent mild lightheadedness, cough and shortness of breath prompting him to call his son to take him to the ER for evaluation. In the ED, he was noted to be hypoxic, tachycardic and hypotensive. XR suggestive of pneumonia with linear opacities. He was admitted for inpatient care given respiratory distress. He received current standard cares for COVID-19 with associated hypoxia and inpatient status, including remdisivir, dexamethasone, and enoxaparin anticoagulation. Blood cultures grew Strep pneumoniae for which he was receiving levofloxacin and vancomycin. He had respiratory status improvement throughout his stay, but he was noted to have significant deconditioning and ongoing need for daily IV antibiotics in the setting of bacteremia; due to this and after discussions for rehabilitation, he agreed to swing bed stay for physical strengthening and ongoing IV antibiotics. During his swing bed stay, he made steady progress in respiratory status and physical conditioning. Previously ordered/collected repeat blood culture not completed, so obtained again and currently without growth. 10-day course of levofloxacin was completed. Subsequent d-dimer obtained and elevated so CT chest completed revealing no PE, so enoxaparin de-escalated. A1c obtained = 8.3%. Magnesium also noted to be deficient. Given his improvement in status, he was deemed ready for discharge to home, with referral for home health/therapy services. Discharge and follow-up recommendations: - Discharge to home with home health (see [id number] certification below) - Medication changes at discharge: - Discontinue hydrochlorothiaziade - Change lisinopril to 20mg daily - Change metoprolol succinate to 50mg qPM - Increase metformin to 1000mg BID - Start magnesium chloride 64mg BID - Follow-up with myself on 08/26/21 in [place] per patient request - Discharge Data Discharge Date: 08/19/21 Discharge Disposition: Home, W Home Health Agency 06 Condition: Good - Referral to Home Health Date of Face to Face Encounter: 08/19/21 Reason for Homebound Status: Develop in home therapy program to address strength/endurance, fatigue, and weakness due to recent COVID-19 infection and associated dyspnea. Primary Care Physician: PCP None Skilled Need: nursing, PT, OT - Patient Summary/Data Consults: Consultations 08/17/21 08:00 Consult to Physical Therapy [PT Evaluation and Treatment] [CONS] Routine - Patient Instructions Diet: Usual Diet as Tolerated Activity: As Tolerated - Discharge Plan *PRESCRIPTION DRUG MONITORING PROGRAM REVIEWED*: Not Applicable *COPY OF PRESCRIPTION DRUG MONITORING REPORT IN PATIENT JONO: Not Applicable Prescriptions/Med Rec: metFORMIN [Glucophage XR] 1,000 mg PO BIDMEALS #180 tab.er Magnesium Chloride [Mag-64] 64 mg PO BID #60 tab.er Home Medications: Home Meds Aspirin [Children's Aspirin] 81 mg PO DAILY 03/16/15 [History] Levothyroxine Sodium [Synthroid] 137 mcg PO DAILY 03/16/15 [History] Multivitamin [Multivitamins] 1 cap PO DAILY 03/16/15 [History] atorvaSTATin [Lipitor] 40 mg PO DAILY 03/16/15 [History] Allopurinol [Zyloprim] 300 mg PO DAILY 08/08/21 [History] Allopurinol [Zyloprim] 100 mg PO DAILY 08/14/21 [History] Metoprolol Succinate [Toprol Xl] 50 mg PO 1800 08/14/21 [History] Omeprazole [Prilosec] 20 mg PO DAILY PRN 08/14/21 [History] Magnesium Chloride [Mag-64] 64 mg PO BID #60 tab.er 08/19/21 [Rx] lisinopriL [Prinivil] 20 mg PO DAILY tablet 08/19/21 [Rx] metFORMIN [Glucophage XR] 1,000 mg PO BIDMEALS #180 tab.er 08/19/21 [Rx] Referrals: [facility] [Outside] Gail Alcocer MD [Physician] - 08/26/21 (Schedule appt in [place]) - Discharge Summary/Plan Comment DC Time >30 min.: Yes Total # of Minutes for Discharge Time: 35 - General Info Subjective Update: Mr. Hernandez reports feeling ready for discharge. Has gained quite a bit of strength and feels he will be safe at home. Daughter is staying with him through the upcoming weekend and then home health is slated to have first visit on Tuesday next week. Shortness of breath persistent, but improving. Eating, voiding, and stooling without difficulty. - Patient Data Vitals - Most Recent: Last Vital Signs Temp 35.7 C L 08/19/21 08:25 Pulse 71 08/19/21 08:25 Resp 18 08/19/21 08:25 BP 108/64 08/19/21 08:26 Pulse Ox 94 L 08/19/21 08:25 Weight - Most Recent: 121.194 kg I&O - Last 24 hours: Intake & Output 08/18/21 08/19/21 08/19/21 22:59 06:59 14:59 Intake Total 360 40 Balance 360 40 Lab Results - Last 24 hrs: Laboratory Results - last 24 hr 08/19/21 08/19/21 Range/Units 10:25 10:25 WBC 9.28 (5.00-10.00) 10^3/uL RBC 4.02 L (4.50-6.00) 10^6/uL Hgb 12.3 L (13.0-17.0) g/dL Hct 38.0 L (40.0-52.0) % MCV 94.5 H (82.0-92.0) fL MCH 30.6 (27.0-31.0) pg MCHC 32.4 (32.0-36.0) g/dL RDW 16.6 H (11.5-14.5) % Plt Count 278 (150-400) 10^3/uL MPV 10.4 (7.4-10.4) fL Add Manual Diff Yes Neutrophils % (Manual) 81 H (50-70) % Band Neutrophils % 2 L (4-12) % Lymphocytes % (Manual) 16 L (20-40) % Metamyelocytes % 1.0 Platelet Estimate Adequate Target Cells 1+ slight Sodium 132 L (136-145) mmol/L Potassium 4.3 (3.5-5.1) mmol/L Chloride 99 (98-107) mmol/L Carbon Dioxide 25.8 (21.0-32.0) mmol/L Anion Gap 11.5 (5-15) mmol/L BUN 23 H (7-18) mg/dL Creatinine 1.07 (0.51-1.17) mg/dL Est Cr Clr Drug Dosing 66.33 mL/min Estimated GFR (MDRD) > 60 mL/min Glucose 213 H (70-140) mg/dL Calcium 8.5 L (8.7-10.3) mg/dL Magnesium 1.5 L (1.8-2.4) mg/dL DELFINA Results - Last 24 hrs: Microbiology 08/15/21 07:30 Aerobic Blood Culture - Preliminary Blood NO GROWTH AFTER 4 DAYS Anaerobic Blood Culture - Preliminary NO GROWTH AFTER 4 DAYS Med Orders - Current: Current Medications Acetaminophen (Acetaminophen 325 Mg Tab) 650 mg PO Q4H PRN PRN Reason: Pain (Mild 1-3)/fever Allopurinol (Allopurinol 100 Mg Tab) 400 mg PO DAILY CARLOS Last Admin: 08/19/21 08:26 Dose: 400 mg Documented by: Aspirin (Aspirin 81 Mg Tab.Chew) 81 mg PO DAILY [facility] Last Admin: 08/19/21 08:26 Dose: 81 mg Documented by: Atorvastatin Calcium (Atorvastatin 40 Mg Tab) 40 mg PO DAILY [facility] Last Admin: 08/19/21 08:27 Dose: 40 mg Documented by: Cholecalciferol (Cholecalciferol (Vitamin D3) 25 Mcg Tab) 25 mcg PO DAILY [facility] Last Admin: 08/19/21 08:27 Dose: 25 mcg Documented by: Enoxaparin Sodium (Enoxaparin 40 Mg/0.4 Ml Syringe) 40 mg SUBCUT DAILY [facility] Last Admin: 08/19/21 08:26 Dose: 40 mg Documented by: Sodium Chloride (Normal Saline) 50 mls @ 200 mls/min IV ASDIRECTED [facility] Last Admin: 08/17/21 09:25 Dose: 200 mls/min Documented by: Levothyroxine Sodium (Levothyroxine 25 Mcg Tab) 25 mcg PO ACBREAKFAST [facility] Last Admin: 08/19/21 07:23 Dose: 25 mcg Documented by: Levothyroxine Sodium (Levothyroxine 112 Mcg Tab) 112 mcg PO ACBREAKFAST [facility] Last Admin: 08/19/21 07:23 Dose: 112 mcg Documented by: Lisinopril (Lisinopril 20 Mg Tab) 20 mg PO DAILY [facility] Last Admin: 08/19/21 08:26 Dose: 20 mg Documented by: Loperamide HCl (Loperamide 2 Mg Cap) 2 mg PO ASDIRECTED PRN PRN Reason: Diarrhea Last Admin: 08/16/21 14:20 Dose: 2 mg Documented by: Magnesium Chloride (Magnesium Chloride 64 Mg Tab.Er) 64 mg PO BID [facility] Last Admin: 08/19/21 08:27 Dose: 64 mg Documented by: Metformin HCl (Metformin 500 Mg Tab.Er) 1,000 mg PO BIDMEALS [facility] Last Admin: 08/17/21 17:39 Dose: Not Given Documented by: Metoprolol Succinate (Metoprolol Succinate 50 Mg Tab.Er) 50 mg PO 1800 [facility] Last Admin: 08/18/21 18:30 Dose: 50 mg Documented by: Nystatin (Nystatin Topical Powder 15 Gm Bottle) 1 gm TOP BID PRN PRN Reason: Rash Pantoprazole Sodium (Pantoprazole 40 Mg Tab.Cr) 40 mg PO ACBREAKFAST [facility] Last Admin: 08/19/21 07:23 Dose: 40 mg Documented by: Discontinued Medications Ascorbic Acid (Ascorbic Acid 500 Mg Tab) 1,000 mg PO BID [facility] Stop: 08/17/21 22:00 Last Admin: 08/17/21 20:28 Dose: 1,000 mg Documented by: Aspirin (Aspirin 81 Mg Tab.Chew) 81 mg PO DAILY [facility] Last Admin: 08/15/21 08:06 Dose: 81 mg Documented by: Dexamethasone (Dexamethasone 10 Mg/Ml Sdv) 6 mg IVPUSH DAILY [facility] Last Admin: 08/15/21 08:07 Dose: 6 mg Documented by: Dexamethasone (Dexamethasone 4 Mg Tab) 6 mg PO DAILY [facility] Stop: 08/17/21 10:00 Last Admin: 08/17/21 08:06 Dose: 6 mg Documented by: Enoxaparin Sodium (Enoxaparin 150 Mg/1 Ml Syringe) 120 mg SUBCUT Q12H [facility] Last Admin: 08/15/21 08:11 Dose: 120 mg Documented by: Levofloxacin/Dextrose 500 mg/ (Premix) 100 mls @ 100 mls/hr IV Q24H [facility] Stop: 08/16/21 15:00 Last Admin: 08/16/21 12:57 Dose: 100 mls/hr Documented by: Levofloxacin/Dextrose 250 mg/ (Premix) 50 mls @ 50 mls/hr IV Q24H [facility] Stop: 08/16/21 16:00 Last Admin: 08/16/21 14:18 Dose: 50 mls/hr Documented by: Sodium Chloride (Normal Saline) 100 mls @ 50 mls/hr IV ASDIRECTED [facility] Last Admin: 08/15/21 13:10 Dose: 50 mls/hr Documented by: Influenza Virus Vaccine (Pharmacy To Dose - Influenza Vaccine) 1 each IM ONETIME ONE Stop: 08/15/21 10:16 Influenza Virus Vaccine (Flu Vacc Uv4717(65up)/Mf59c/Pf 60 Mcg/0.5 Ml Syringe) 60 mcg IM .ONCE ONE Stop: 08/15/21 10:31 Last Admin: 08/15/21 10:42 Dose: 60 mcg Documented by: Iopamidol (Iopamidol 755 Mg/Ml 75 Ml Bottle) 75 ml IVPUSH ONETIME ONE Stop: 08/17/21 08:51 Last Admin: 08/17/21 09:25 Dose: 75 ml Documented by: Levofloxacin (Levofloxacin 500 Mg Tab) 750 mg PO Q24H [facility] Stop: 08/19/21 13:01 Last Admin: 08/19/21 12:56 Dose: 750 mg Documented by: Magnesium Oxide (Magnesium Oxide 500 Mg Tab) 500 mg PO DAILY [facility] Last Admin: 08/16/21 08:39 Dose: 500 mg Documented by: Metformin HCl (Metformin 500 Mg Tab.Er) 1,000 mg PO DAILY [facility] Last Admin: 08/15/21 08:06 Dose: 1,000 mg Documented by: Metformin HCl (Metformin 500 Mg Tab.Er) 1,000 mg PO DAILY [facility] Last Admin: 08/16/21 08:40 Dose: 1,000 mg Documented by: Non-Formulary Medication (Levothyroxine Sodium [Synthroid]) 137 mcg PO DAILY [facility] Non-Formulary Medication (Allopurinol [Zyloprim]) 300 mg PO DAILY [facility] Nystatin (Nystatin Topical Powder 15 Gm Bottle) 0 gm TOP BID [facility] Last Admin: 08/18/21 08:08 Dose: Not Given Documented by: Sodium Phosphate (Phosphorus #1 250 Mg Tab) 250 mg PO BID [facility] Last Admin: 08/16/21 20:27 Dose: 250 mg Documented by: - Exam Physical Findings Comments:: GENERAL: Elderly white male sitting on hospital bed in no acute distress. HEENT: Normocephalic, atraumatic. Conjunctiva clear. Nasal cannula in place. Mucous membranes moist, posterior pharynx unremarkable. NECK: Supple, no masses. CV: Regular rate and rhythm, no murmurs, rubs, or gallops. 2+ radial pulses. PULMONARY: Normal effort, clear to auscultation bilaterally, no wheezes, rales, or rhonchi. ABDOMEN: Positive bowel sounds, soft, nontender, nondistended. EXTREMITIES: No edema, cyanosis, or clubbing. MUSCULOSKELETAL: Moves all extremities well. NEUROLOGICAL: No obvious deficits. DERMATOLOGIC: No rashes or suspicious lesions in exposed areas. PSYCHIATRIC: Alert, interactive, appropriate affect.
[2021-08-19] MEDS: Metoprolol Succinate 50 MG Tab.ER PO SCH (17:15)
[2021-08-19 17:16] VITALS: BP 124/65; PULSE 88
== END 2021-08-19 18:10 | disposition home health service (06) | DRG 947 ==
LOC: KA.MS 18:32 → UNDOADMIN 18:32 → KA.MS 18:34
PROVIDERS: ADMIT Family Medicine; ATTEND Family Medicine
DX: R53.81 Other malaise (principal); J18.9 Pneumonia, unspecified organism; J96.01 Acute respiratory failure with hypoxia; R78.81 Bacteremia; U09.9 Post COVID-19 condition, unspecified; E83.42 Hypomagnesemia; E83.39 Other disorders of phosphorus metabolism; E88.09 Other disorders of plasma-protein metabolism, not elsewhere classified; E11.9 Type 2 diabetes mellitus without complications; M10.9 Gout, unspecified; E66.9 Obesity, unspecified; E78.00 Pure hypercholesterolemia, unspecified; I10 Essential (primary) hypertension; K21.9 Gastro-esophageal reflux disease without esophagitis; M19.90 Unspecified osteoarthritis, unspecified site; E03.9 Hypothyroidism, unspecified; Z98.49 Cataract extraction status, unspecified eye; Z68.38 Body mass index [BMI] 38.0-38.9, adult; Z79.82 Long term (current) use of aspirin; Z79.890 Hormone replacement therapy; Z87.891 Personal history of nicotine dependence
CPT/HCPCS: 36415; 71275; 80048; 80053; 83036; 83735; 84100; 85025; 85379; 86140; 87040; 90694; 97161-GP; A9270-GY; G0008; J1100; J1650; J1956; J8540; Q9967

== ENCOUNTER 2022-12-07 07:00 | Day surgery (SDC) | payer MEDICARE ==
[~2022-12-07 07:00] MED LIST: Sodium Chloride 0.9% 1,000 ML IV SCH; Sodium Chloride 0.9% 10 ML Syringe FLUSH PRN
[2022-12-07] MEDS ORDERED: Propofol 200 MG/20 ML SDV IV ONE (07:01)
[2022-12-07] MEDS ORDERED: Propofol 200 MG/20 ML SDV ONE ×4 (08:00→09:58)
[2022-12-07] MEDS ORDERED: Midazolam 1 MG/ML 2 ML SDV ONE (08:00)
[2022-12-07] MEDS ORDERED: Lactated Ringers 1,000 ML ONE (09:12)
[2022-12-07 10:25] VITALS: BP 150/79; PULSE 69
== END 2022-12-07 10:40 | disposition home or self-care (01) ==
LOC: KA.SDS 07:00
PROVIDERS: ATTEND Family Medicine
DX: D12.6 Benign neoplasm of colon, unspecified (principal); G47.33 Obstructive sleep apnea (adult) (pediatric); K21.9 Gastro-esophageal reflux disease without esophagitis; E11.9 Type 2 diabetes mellitus without complications; E78.2 Mixed hyperlipidemia; E03.9 Hypothyroidism, unspecified; E83.42 Hypomagnesemia; E66.01 Morbid (severe) obesity due to excess calories; Z68.41 Body mass index [BMI] 40.0-44.9, adult; Z79.899 Other long term (current) drug therapy; Z98.890 Other specified postprocedural states
CPT/HCPCS: 00811; 82947; J2250; J2704; J7030